=== PATIENT | male | born 1945 | race Caucasian/White ===

== ENCOUNTER 2017-07-10 22:55 | Observation (INO) | payer MEDICARE, OTHER ==
[2017-07-10] MEDS ORDERED: Morphine 2 MG/ML Syringe ONE (23:25)
[2017-07-10 23:27] LABS: CHLORIDE,CL 98 mEq/L (98-106); SODIUM,NA 133 mEq/L (136-145)
[2017-07-10] MEDS ORDERED: Morphine 2 MG/ML Syringe IVPUSH ONE (23:35)
[2017-07-10] MEDS ORDERED: Iopamidol 612 MG/ML 100 ML Bottle IVPUSH ONE (23:56)
--- NOTE | 2017-07-11 00:25 | EDM.PDOC ---
ED HPI GENERAL MEDICAL PROBLEM - General Chief Complaint: Chest Pain Stated Complaint: chest pain Time Seen by Provider: 07/10/17 22:55 Source of Information: Reports: Patient, Family History Limitations: Reports: No Limitations - History of Present Illness INITIAL COMMENTS - FREE TEXT/NARRATIVE: Marty is a 72 yo male who is brought into the ER via [facility] with complaints of severe chest pain. He states he was sitting in his recliner this evening around 1800hrs when the pain initially started. Admits to pain in his back between his shoulder blades and his chest. States the pain goes into his right shoulder and jaw as well. He initially thought it would subside but continued to worsen thru the evening. States it became almost intolerable and has never felt pain like this before. Describes the pain as sharp and burning. Notices when he takes in a deep breath the pain will intensify. He had his call the ambulance as the pain continued to worsen and wasn't getting any relief. EMS state he was given 4 baby aspirin, 2 nitro and fentanyl mist en route. Upon arrival Marty admits the pain has significantly improved. He states the pain is only worse upon inspiration or if he coughs. He has been feeling well up until tonight. States about a month ago he had influenza but hasn't had any symptoms since. Has a chronic cough and thinks it is allergy related. 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 Is currently on Eliquis for history of atrial fibrillation with prior ablation done. Onset: Today Onset Date: 07/11/17 Onset Time: 18:00 Location: Reports: Face, Chest, Back Quality: Reports: Sharp, Stabbing, Other (denies tearing sensation) Improves with: Reports: Medication Worsens with: Reports: Breathing Associated Symptoms: Reports: Chest Pain, Cough, Nausea/Vomiting, Shortness of Breath. 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, Nitroglycerin, Other Medication(s) (fentanyl mist) Chest Pain Score (Numeric/FACES): 7 - Related Data Allergies Allergy/AdvReac Type Severity Reaction Status Date / Time clarithromycin [From Biaxin] Allergy Rash Verified 07/10/17 23:08 doxycycline Allergy Rash Verified 07/10/17 23:08 Penicillins Allergy Rash Verified 07/10/17 23:08 Home Meds: Home Meds Omeprazole [Prilosec] 20 mg PO DAILY 05/01/13 [History] carBAMazepine [TEGretol Tab] 400 mg PO QID 05/01/13 [History] PARoxetine HCl [Paroxetine HCl] 30 mg PO DAILY 03/11/15 [History] Tamsulosin HCl 0.4 mg PO DAILY 03/11/15 [History] Apixaban [Eliquis] 5 mg PO BID 05/28/17 [History] Cyclobenzaprine [Flexeril] 10 mg PO TID 07/10/17 [History] Past Medical History HEENT History: Reports: Allergic Rhinitis Cardiovascular History: Reports: Afib, Arrhythmia, Pacemaker Respiratory History: Reports: None Gastrointestinal History: Reports: GERD Genitourinary History: Reports: BPH Musculoskeletal History: Reports: Arthritis Neurological History: Reports: Seizure Psychiatric History: Reports: Depression Hematologic History: Reports: Anticoagulation Therapy - Past Surgical History Head Surgeries/Procedures: Reports: None HEENT Surgical History: Reports: None Cardiovascular Surgical History: Reports: Cardiac Ablation, Pacer Respiratory Surgical History: Reports: None GI Surgical History: Reports: Colonoscopy Musculoskeletal Surgical History: Reports: Knee Replacement Social & Family History - Family History Cardiac: Reports: High Cholesterol, Hypertension - Tobacco Use Smoking Status *Q: Never Smoker Second Hand Smoke Exposure: No - Alcohol Use Days Per Week of Alcohol Use: 0 - Recreational Drug Use Recreational Drug Use: No ED ROS GENERAL - Review of Systems Review Of Systems: See Below Constitutional: Denies: Fever, Chills HEENT: Reports: Rhinitis Respiratory: Reports: Shortness of Breath, Cough. Denies: Wheezing, Sputum Cardiovascular: Reports: Chest Pain. Denies: Blood Pressure Problem, Dyspnea on Exertion, Edema, Palpitations GI/Abdominal: Reports: No Symptoms : Reports: No Symptoms Musculoskeletal: Reports: No Symptoms Skin: Reports: No Symptoms Neurological: Reports: Headache (after nitroglycerin) Psychiatric: Reports: Depression ED EXAM, GENERAL - Physical Exam Exam: See Below Exam Limited By: No Limitations General Appearance: Alert, WD/WN, Mild Distress Eye Exam: Bilateral Eye: Normal Inspection Ears: Normal External Exam, Hearing Grossly Normal Nose: Normal Inspection, Normal Mucosa, No Blood Throat/Mouth: Normal Inspection, Normal Lips, Normal Teeth (dentures), Normal Gums, Normal Oropharynx, Normal Voice, No Airway Compromise Head: Atraumatic, Normocephalic Neck: Normal Inspection, Supple Respiratory/Chest: No Respiratory Distress, Lungs Clear, Normal Breath Sounds, Other (chest pain upon palpation to anterior chest R>L) Cardiovascular: Normal Peripheral Pulses, Regular Rate, Rhythm, No Edema, Systolic Murmur Peripheral Pulses: 2+: Radial (L), Radial (R) GI/Abdominal: Normal Bowel Sounds, Soft, Other (obese) Extremities: Normal Inspection, No Pedal Edema, Normal Capillary Refill Neurological: Alert, Oriented, Normal Cognition Psychiatric: Normal Affect, Normal Mood Skin Exam: Warm, Dry, Intact, Normal Color, No Rash EKG INTERPRETATION EKG Date: 07/11/17 Time: 23:02 Rhythm: A-Fib Rate (Beats/Min): 71 QRS: LBBB Comparison: Change From Previous EKG (April 10 2017) Course - Vital Signs Last Recorded V/S: Last Vital Signs Temp 97.9 F 07/10/17 23:40 Pulse 70 07/10/17 23:40 Resp 18 07/10/17 23:40 BP 148/89 H 07/10/17 23:40 Pulse Ox 96 07/10/17 23:40 - Orders/Labs/Meds Orders: Active Orders 24 hr Category Date Time Status Chest 1V Frontal [CR] Stat Exams 07/10/17 23:07 Taken Chest w Cont [CT] Stat Exams 07/11/17 23:41 Ordered Labs: Laboratory Tests 07/10/17 07/10/17 07/10/17 Range/Units 23:06 23:06 23:06 WBC 12.2 H (5.0-10.0) 10^3/uL RBC 4.96 (4.50-6.00) 10^6/uL Hgb 15.9 (14.0-18.0) g/dL Hct 45.5 (40.0-54.0) % MCV 91.7 (82.0-94.0) fL MCH 32.1 H (27.0-32.0) pg MCHC 34.9 (33.0-38.0) g/dL RDW Coeff of [place] 12.7 (11.0-15.0) % Plt Count 236 (150-400) 10^3/uL Neut % (Auto) 82.5 (35-85) % Lymph % (Auto) 9.0 L (10-55) % [place] % (Auto) 7.1 (0-16) % Eos % (Auto) 1.2 (0-5) % Baso % (Auto) 0.2 (0-3) % Neut # (Auto) 10.06 H (1.80-7.00) 10^3/uL Lymph # (Auto) 1.09 (1.00-4.80) 10^3/uL [place] # (Auto) 0.86 H (0.00-0.80) 10^3/uL Eos # (Auto) 0.14 (0.00-0.45) 10^3/uL Baso # (Auto) 0.02 10^3/uL PT 10.4 (9.7-12.3) SEC INR 1.00 (0.92-1.18) APTT 31.0 H (24.5-30.9) SEC Sodium 133 L (136-145) mEq/L Potassium 4.1 (3.5-5.0) mEq/L Chloride 98 (98-106) mEq/L Carbon Dioxide 27 (21-32) mmol/L BUN 14 (7-18) mg/dL Creatinine 0.9 (0.7-1.3) mg/dL Est Cr Clr Drug Dosing TNP Estimated GFR (MDRD) > 60 (>=60) mL/min Glucose 146 H (75-99) mg/dL Calcium 9.1 (8.4-10.1) mg/dL Lactate Dehydrogenase 203 H (100-190) U/L Creatine Kinase 44 (35-232) U/L Troponin I 0.026 (0.00-0.06) ng/mL Meds: Medications Discontinued Medications Generic Name Dose Route Start Last Admin Trade Name Freq PRN Reason Stop Dose Admin Iopamidol 100 ml 07/10/17 23:56 07/11/17 00:19 Isovue-300 (61%) IVPUSH 07/10/17 23:57 100 ml ONETIME ONE Administration Morphine Sulfate Confirm 07/10/17 23:25 07/10/17 23:37 Morphine Administered 07/10/17 23:26 Not Given Dose 2 mg .ROUTE .STK-MED ONE Morphine Sulfate 2 mg 07/10/17 23:35 07/10/17 23:37 Morphine IVPUSH 07/10/17 23:36 2 mg ONETIME ONE Administration - Radiology Interpretation CT Results Date: 07/11/17 Departure - Departure Time of Disposition: 01:26 Disposition: Refer to Observation Condition: Undetermined Clinical Impression: Chest pain Qualifiers: Chest pain type: unspecified Qualified Code(s): R07.9 - Chest pain, unspecified Forms: ED Department Discharge - Problem List & Annotations (1) Chest pain SNOMED Code(s): 51059057 Code(s): R07.9 - CHEST PAIN, UNSPECIFIED Status: Acute Qualifiers: Chest pain type: unspecified Qualified Code(s): R07.9 - Chest pain, unspecified - Problem List Review Problem List Initiated/Reviewed/Updated: Yes - My Orders Last 24 Hours: My Active Orders 07/10/17 23:07 Chest 1V Frontal [CR] Stat 07/11/17 23:41 Chest w Cont [CT] Stat - Assessment/Plan Admission H&P: Please use this note as an admission H&P Last 24 Hours: My Active Orders 07/10/17 23:07 Chest 1V Frontal [CR] Stat 07/11/17 23:41 Chest w Cont [CT] Stat Plan: Laboratory work is stable. CT chest negative per radiologist at [facility] for acute findings. Consulted with Dr. Garrett who agreed with admission under observation for cardiac rule out. Will repeat cardiac enzymes at 0500. Marty verbalized understanding and currently is asymptomatic unless he takes deep inspiration.
[2017-07-11] MEDS ORDERED: Sodium Chloride 0.9% 10 ML Syringe FLUSH PRN (02:08)
[2017-07-11] MEDS ORDERED: Ondansetron 4 MG/2 ML SDV IV PRN (02:08)
[2017-07-11] MEDS: Morphine 2 MG/ML Syringe IVPUSH PRN ×3 (02:49→07:58)
[2017-07-11] MEDS ORDERED: Acetaminophen 500 MG Tab PO ONE (04:28)
[2017-07-11] MEDS ORDERED: Pantoprazole 40 MG Tab.CR PO SCH (07:00)
[2017-07-11] MEDS: methylPREDNISolone Sodium Succinate 125 MG/2 ML SDV IVPUSH SCH (09:12)
[2017-07-11] MEDS: **PTOM** Tamsulosin 0.4 MG Cap.ER PO SCH (09:15)
[2017-07-11] MEDS: PAROXETINE 20 MG PO SCH (09:16)
[2017-07-11] MEDS: CARBAMAZEPINE 200 MG PO SCH ×4 (09:16→19:36)
--- NOTE | 2017-07-11 09:21 | PCM.PN ---
- General Info Date of Service: 07/11/17 Admission Dx/Problem (Free Text): Chest Pain Functional Status: Denies: Pain Controlled, Tolerating Diet, Ambulating - Review of Systems General: Denies: Fever, Weakness, Fatigue HEENT: Reports: Rhinitis Pulmonary: Reports: Shortness of Breath, Pleuritic Chest Pain, Cough Cardiovascular: Reports: Chest Pain. Denies: Edema, Lightheadedness Gastrointestinal: Denies: Abdominal Pain, Nausea, Vomiting Genitourinary: Reports: No Symptoms Musculoskeletal: Reports: Back Pain, Joint Pain (right shoulder pain) Skin: Reports: No Symptoms Neurological: Reports: No Symptoms - Patient Data Vitals - Most Recent: Last Vital Signs Temp 98.1 F 07/11/17 08:00 Pulse 70 07/11/17 08:00 Resp 20 07/11/17 08:00 BP 181/105 H 07/11/17 08:00 Pulse Ox 96 07/11/17 08:00 Weight - Most Recent: 269 lb 12.8 oz Lab Results Last 24 Hours: Laboratory Results - last 24 hr 07/10/17 07/10/17 07/10/17 Range/Units 23:06 23:06 23:06 WBC 12.2 H (5.0-10.0) 10^3/uL RBC 4.96 (4.50-6.00) 10^6/uL Hgb 15.9 (14.0-18.0) g/dL Hct 45.5 (40.0-54.0) % MCV 91.7 (82.0-94.0) fL MCH 32.1 H (27.0-32.0) pg MCHC 34.9 (33.0-38.0) g/dL RDW Coeff of [place] 12.7 (11.0-15.0) % Plt Count 236 (150-400) 10^3/uL Neut % (Auto) 82.5 (35-85) % Lymph % (Auto) 9.0 L (10-55) % [place] % (Auto) 7.1 (0-16) % Eos % (Auto) 1.2 (0-5) % Baso % (Auto) 0.2 (0-3) % Neut # (Auto) 10.06 H (1.80-7.00) 10^3/uL Lymph # (Auto) 1.09 (1.00-4.80) 10^3/uL [place] # (Auto) 0.86 H (0.00-0.80) 10^3/uL Eos # (Auto) 0.14 (0.00-0.45) 10^3/uL Baso # (Auto) 0.02 10^3/uL PT 10.4 (9.7-12.3) SEC INR 1.00 (0.92-1.18) APTT 31.0 H (24.5-30.9) SEC Sodium 133 L (136-145) mEq/L Potassium 4.1 (3.5-5.0) mEq/L Chloride 98 (98-106) mEq/L Carbon Dioxide 27 (21-32) mmol/L BUN 14 (7-18) mg/dL Creatinine 0.9 (0.7-1.3) mg/dL Est Cr Clr Drug Dosing TNP Estimated GFR (MDRD) > 60 (>=60) mL/min Glucose 146 H (75-99) mg/dL Calcium 9.1 (8.4-10.1) mg/dL Lactate Dehydrogenase 203 H (100-190) U/L Creatine Kinase 44 (35-232) U/L Troponin I 0.026 (0.00-0.06) ng/mL C-Reactive Protein (0.2-0.8) mg/dL Amylase (25-115) U/L 07/11/17 Range/Units 04:55 WBC (5.0-10.0) 10^3/uL RBC (4.50-6.00) 10^6/uL Hgb (14.0-18.0) g/dL Hct (40.0-54.0) % MCV (82.0-94.0) fL MCH (27.0-32.0) pg MCHC (33.0-38.0) g/dL RDW Coeff of [place] (11.0-15.0) % Plt Count (150-400) 10^3/uL Neut % (Auto) (35-85) % Lymph % (Auto) (10-55) % [place] % (Auto) (0-16) % Eos % (Auto) (0-5) % Baso % (Auto) (0-3) % Neut # (Auto) (1.80-7.00) 10^3/uL Lymph # (Auto) (1.00-4.80) 10^3/uL [place] # (Auto) (0.00-0.80) 10^3/uL Eos # (Auto) (0.00-0.45) 10^3/uL Baso # (Auto) 10^3/uL PT (9.7-12.3) SEC INR (0.92-1.18) APTT (24.5-30.9) SEC Sodium (136-145) mEq/L Potassium (3.5-5.0) mEq/L Chloride (98-106) mEq/L Carbon Dioxide (21-32) mmol/L BUN (7-18) mg/dL Creatinine (0.7-1.3) mg/dL Est Cr Clr Drug Dosing Estimated GFR (MDRD) (>=60) mL/min Glucose (75-99) mg/dL Calcium (8.4-10.1) mg/dL Lactate Dehydrogenase (100-190) U/L Creatine Kinase 39 (35-232) U/L Troponin I 0.024 (0.00-0.06) ng/mL C-Reactive Protein 3.6 H (0.2-0.8) mg/dL Amylase 48 (25-115) U/L Med Orders - Current: Current Medications Apixaban (Eliquis) 5 mg PO BID [facility] Carbamazepine (Tegretol Tab) 400 mg PO QID [facility] Methylprednisolone Sodium Succinate (Solu-Medrol) 125 mg IVPUSH DAILY@0800 [facility] Last Admin: 07/11/17 09:12 Dose: 125 mg Morphine Sulfate (Morphine) 2 mg IVPUSH Q2H PRN PRN Reason: Pain (severe 7-10) Last Admin: 07/11/17 07:58 Dose: 2 mg Ondansetron HCl (Zofran) 4 mg IV Q4H PRN PRN Reason: Nausea/Vomiting Pantoprazole Sodium (Protonix) 40 mg PO ACBREAKFAST [facility] Paroxetine HCl (Paxil) 30 mg PO DAILY [facility] Sodium Chloride (Saline Flush) 10 ml FLUSH ASDIRECTED PRN PRN Reason: Keep Vein Open Tamsulosin HCl (Flomax) 0.4 mg PO DAILY [facility] Discontinued Medications Acetaminophen (Tylenol Extra Strength) 1,000 mg PO NOW ONE Stop: 07/11/17 04:29 Last Admin: 07/11/17 04:35 Dose: 1,000 mg Iopamidol (Isovue-300 (61%)) 100 ml IVPUSH ONETIME ONE Stop: 07/10/17 23:57 Last Admin: 07/11/17 00:19 Dose: 100 ml Morphine Sulfate (Morphine) Confirm Administered Dose 2 mg .ROUTE .STK-MED ONE Stop: 07/10/17 23:26 Last Admin: 07/10/17 23:37 Dose: Not Given Morphine Sulfate (Morphine) 2 mg IVPUSH ONETIME ONE Stop: 07/10/17 23:36 Last Admin: 07/10/17 23:37 Dose: 2 mg - Exam Quality Assessment: No: Supplemental Oxygen General: Alert, Oriented HEENT: Mucous Membr. Moist/[place] Neck: Supple Lungs: Clear to Auscultation, Normal Respiratory Effort, Other (tender to anterior chest wall) Cardiovascular: Regular Rate, Regular Rhythm GI/Abdominal Exam: Normal Bowel Sounds, Soft, Non-Tender Extremities: Normal Inspection, No Pedal Edema Skin: Warm, Dry Neurological: No New Focal Deficit - Problem List & Annotations (1) Chest pain SNOMED Code(s): 74108048 Code(s): R07.9 - CHEST PAIN, UNSPECIFIED Status: Acute Current Visit: No Qualifiers: Chest pain type: chest pain on breathing Qualified Code(s): R07.1 - Chest pain on breathing; R07.81 - Pleurodynia - Problem List Review Problem List Initiated/Reviewed/Updated: Yes - My Orders Last 24 Hours: My Active Orders 07/11/17 09:00 methylPREDNISolone Sod Succ [Solu-MEDROL] 125 mg IVPUSH DAILY@0800 07/11/17 Breakfast Regular Diet [DIET] - Assessment Assessment:: Atypical chest pain - Plan Plan:: Patient continues to have right shoulder pain and chest wall discomfort. States "hurts to take a breath". Has been coughing for a time now, especially at night. Denies any recent trauma. States was just sitting at his computer when the pain started in his back and shoulder and spread across his chest. Has been taking morphine IV frequently yet to control the discomfort. Cardiac enzymes and EKG have been normal. CRP 3.6. Chest CT was clear. Will give Solu Medrol this am for chest wall inflammation and ? pleurisy to see if patient gets better relief of his discomfort. Start regular diet. Continue to monitor telemetry. Possible discharge home tomorrow pending patient's pain level.
[2017-07-11] MEDS: PRILOSEC 20 MG PO SCH (09:34)
[2017-07-11] MEDS: Acetaminophen/HYDROcodone 325-5 MG Tab PO PRN ×4 (10:55→23:59)
[2017-07-11] MEDS ORDERED: Ketorolac 30 MG/ML SDV IVPUSH PRN (17:13)
[2017-07-12] MEDS: PRILOSEC 20 MG PO SCH (06:31)
[2017-07-12] MEDS: **PTOM** Tamsulosin 0.4 MG Cap.ER PO SCH (07:50)
[2017-07-12] MEDS: CARBAMAZEPINE 200 MG PO SCH (07:51)
[2017-07-12] MEDS: PAROXETINE 20 MG PO SCH (07:51)
[2017-07-12 08:52] VITALS: BP 183/102
[2017-07-12] MEDS: methylPREDNISolone Sodium Succinate 125 MG/2 ML SDV IVPUSH SCH (09:52)
--- NOTE | 2017-07-12 15:47 | PCM.DCSUM1 ---
Discharge Summary - Hospital Course Free Text/Narrative:: Patient presented to ER per EMS with complaints of severe chest pain. He was sitting in his recliner, just relaxing when the pain started between his shoulder blades and radiated to right shoulder and chest. Had been coughing a great deal over the days prior, states pain is more intense with deep breaths. Described the pain as sharp and burning, had never experienced pain like this in the past. Patient was given aspirin, nitro and Fentanyl enroute to the hospital. Full cardiac work up was done with negative enzymes, EKG. Admitted for cardiac rule out. CT scan of the chest was done and was negative. - Discharge Data Discharge Date: 07/12/17 Discharge Disposition: Home, Self-Care 01 Condition: Fair - Discharge Diagnosis/Problem(s) (1) Chest pain SNOMED Code(s): 35594779 ICD Code: R07.9 - CHEST PAIN, UNSPECIFIED Status: Acute Qualifiers: Chest pain type: chest pain on breathing Qualified Code(s): R07.1 - Chest pain on breathing; R07.81 - Pleurodynia - Patient Summary/Data Complications: none Hospital Course: Patient has had good resolution of his discomfort over the last 48 hours. Yesterday, continued to have a great deal of discomfort in his chest and shoulder despite normal cardiac enzymes. Was very tender to palpation to his anterior chest. Requiring morphine every 2 hours. Given a dose of Solu Medrol IV yesterday as well as Toradol was added and today, he is nearly pain free. States is able to ambulate now, take a deep breath with only a dull ache. Appetite is good. No nausea, shortness of breath, or dizziness. Shoulder pain is much improved. Patient did have increased confusion during the night, question if related to the steroids. Is oriented this am. Will discharge home on Celebrex 100 mg BID for 7 days. Follow up with Dr. Garrett next week. - Patient Instructions Diet: Usual Diet as Tolerated Activity: As Tolerated - Discharge Plan Prescriptions/Med Rec: Celecoxib [CeleBREX] 100 mg PO BID #14 cap Home Medications: Home Meds Omeprazole [Prilosec] 20 mg PO DAILY 05/01/13 [History] carBAMazepine [TEGretol Tab] 400 mg PO QID 05/01/13 [History] PARoxetine HCl [Paroxetine HCl] 30 mg PO DAILY 03/11/15 [History] Tamsulosin HCl 0.4 mg PO DAILY 03/11/15 [History] Apixaban [Eliquis] 5 mg PO BID 05/28/17 [History] Cyclobenzaprine [Flexeril] 10 mg PO TID 07/10/17 [History] Celecoxib [CeleBREX] 100 mg PO BID #14 cap 07/12/17 [Rx] Patient Handouts: Chest Wall Pain Forms: ED Department Discharge Referrals: Zheng Garrett MD [Primary Care Provider] - (Follow up in one week with Dr. Garrett) - Discharge Summary/Plan Comment DC Time >30 min.: No Discharge Summary/Plan Comment: Discharge home on Celebrex 100 mg BID Follow up with Dr. Garrett in one week - General Info Date of Service: 07/12/17 Admission Dx/Problem (Free Text: Chest Pain Functional Status: Reports: Pain Controlled, Tolerating Diet, Ambulating - Review of Systems General: Denies: Fever, Weakness, Fatigue HEENT: Reports: Rhinitis. Denies: Sore Throat Pulmonary: Denies: Shortness of Breath, Cough Cardiovascular: Denies: Chest Pain, Edema, Lightheadedness Gastrointestinal: Denies: Abdominal Pain, Nausea, Vomiting Genitourinary: Reports: No Symptoms Musculoskeletal: Reports: Joint Pain (shoulder pain much improved) Skin: Reports: No Symptoms Neurological: Reports: No Symptoms Psychiatric: Reports: No Symptoms - Patient Data Vitals - Most Recent: Last Vital Signs Temp 97.5 F 07/12/17 08:00 Pulse 76 07/12/17 08:00 Resp 20 07/12/17 08:00 BP 183/102 H 07/12/17 08:00 Pulse Ox 98 07/12/17 08:00 Weight - Most Recent: 269 lb 12.8 oz Med Orders - Current: Current Medications Discontinued Medications Acetaminophen (Tylenol Extra Strength) 1,000 mg PO NOW ONE Stop: 07/11/17 04:29 Last Admin: 07/11/17 04:35 Dose: 1,000 mg Hydrocodone Bitart/Acetaminophen ([place] 325-5 Mg) 1 - 2 tab PO Q6H PRN PRN Reason: Pain Last Admin: 07/11/17 23:59 Dose: 1 tab Apixaban (Eliquis) 5 mg PO BID [facility] Last Admin: 07/12/17 07:49 Dose: 5 mg Carbamazepine (Tegretol Tab) 400 mg PO QID [facility] Last Admin: 07/12/17 07:51 Dose: 400 mg Iopamidol (Isovue-300 (61%)) 100 ml IVPUSH ONETIME ONE Stop: 07/10/17 23:57 Last Admin: 07/11/17 00:19 Dose: 100 ml Ketorolac Tromethamine (Toradol) 15 mg IVPUSH Q6H PRN PRN Reason: Pain Stop: 07/16/17 17:13 Last Admin: 07/12/17 10:47 Dose: 15 mg Methylprednisolone Sodium Succinate (Solu-Medrol) 125 mg IVPUSH DAILY@0800 [facility] Last Admin: 07/12/17 09:52 Dose: Not Given Morphine Sulfate (Morphine) Confirm Administered Dose 2 mg .ROUTE .STK-MED ONE Stop: 07/10/17 23:26 Last Admin: 07/10/17 23:37 Dose: Not Given Morphine Sulfate (Morphine) 2 mg IVPUSH ONETIME ONE Stop: 07/10/17 23:36 Last Admin: 07/10/17 23:37 Dose: 2 mg Morphine Sulfate (Morphine) 2 mg IVPUSH Q2H PRN PRN Reason: Pain (severe 7-10) Last Admin: 07/11/17 07:58 Dose: 2 mg Ptom Prilosec 20 (Mg Tab) 1 each PO ACBREAKFAST [facility] Last Admin: 07/12/17 06:31 Dose: 1 each Ondansetron HCl (Zofran) 4 mg IV Q4H PRN PRN Reason: Nausea/Vomiting Pantoprazole Sodium (Protonix) 40 mg PO ACBREAKFAST [facility] Last Admin: 07/11/17 09:47 Dose: Not Given Paroxetine HCl (Paxil) 30 mg PO DAILY [facility] Last Admin: 07/12/17 07:51 Dose: 30 mg Sodium Chloride (Saline Flush) 10 ml FLUSH ASDIRECTED PRN PRN Reason: Keep Vein Open Tamsulosin HCl (Flomax) 0.4 mg PO DAILY [facility] Last Admin: 07/12/17 07:50 Dose: 0.4 mg - Exam General: Reports: Alert, Oriented HEENT: Reports: Mucous Membr. Moist/[place] Neck: Reports: Supple Lungs: Reports: Clear to Auscultation, Normal Respiratory Effort, Other (chest is nontender to palpation today) Cardiovascular: Reports: Regular Rate, Regular Rhythm GI/Abdominal Exam: Normal Bowel Sounds, Soft, Non-Tender Extremities: Normal Inspection, No Pedal Edema Skin: Reports: Warm, Dry Neurological: Reports: No New Focal Deficit
== END 2017-07-12 11:15 | disposition home or self-care (01) ==
LOC: CC.ED 22:55 → CC.MS 07-11 01:31 → UNDOADMOB 07-11 01:31 → CC.MS 07-11 01:40 → UNDOADMOB 07-11 01:40
PROVIDERS: ADMIT Physician Assistant Medical; ATTEND Family Medicine
DX: R07.1 Chest pain on breathing (principal); R07.81 Pleurodynia; J30.9 Allergic rhinitis, unspecified; I48.91 Unspecified atrial fibrillation; K21.9 Gastro-esophageal reflux disease without esophagitis; N40.0 Benign prostatic hyperplasia without lower urinary tract symptoms; M19.90 Unspecified osteoarthritis, unspecified site; F32.9 Major depressive disorder, single episode, unspecified; Z79.899 Other long term (current) drug therapy; Z79.01 Long term (current) use of anticoagulants; Z88.1 Allergy status to other antibiotic agents; Z88.0 Allergy status to penicillin; Z95.0 Presence of cardiac pacemaker
CPT/HCPCS: 36415; 71045; 71260; 80048; 82150; 82550; 83615; 84484; 85025; 85610; 85730; 86140; 93005; 96374; 96375; 96376; 99285; A9270; G0378; J1885; J2270; J2930; Q9967

== ENCOUNTER 2017-09-23 11:38 | Emergency (ER) | payer MEDICARE, OTHER ==
[2017-09-23 11:42] VITALS: BP 160/95
[2017-09-23] MEDS ORDERED: Ketorolac 60 MG/2 ML SDV IM ONE (11:58)
[2017-09-23] MEDS ORDERED: methylPREDNISolone Sodium Succinate 125 MG/2 ML SDV IM ONE (11:59)
--- NOTE | 2017-09-23 12:13 | EDM.PDOC ---
ED HPI GENERAL MEDICAL PROBLEM - General Chief Complaint: General Stated Complaint: rib/shoulder pain Time Seen by Provider: 09/23/17 12:00 Source of Information: Reports: Patient History Limitations: Reports: No Limitations - History of Present Illness INITIAL COMMENTS - FREE TEXT/NARRATIVE: Patient presents today with chest wall pain. States has been having discomfort just like he did when he was admitted in July. Did see Mandy Baca on the 31 of August for this, was started on hydrocodone and states it has not been helping at all. He notes the pain is worse with deep breathing and cough. Has not had any trauma. No cough. States the pain does radiate up to his right shoulder as well just like it did in the past. Onset: Gradual Duration: Week(s):, Waxing/Waning Location: Reports: Chest Quality: Reports: Sharp Severity: Severe Improves with: Reports: None Worsens with: Reports: Breathing Associated Symptoms: Denies: Cough, Fever/Chills, Loss of Appetite, Nausea/ Vomiting, Shortness of Breath, Weakness Treatments [employer]: Reports: Other Medication(s) (hydrocodone) Middle Thoracic Pain Score (Numeric/FACES): 9 - Related Data Allergies Allergy/AdvReac Type Severity Reaction Status Date / Time clarithromycin [From Biaxin] Allergy Rash Verified 09/23/17 11:42 doxycycline Allergy Rash Verified 09/23/17 11:42 Penicillins Allergy Rash Verified 09/23/17 11:42 Home Meds: Home Meds Omeprazole [Prilosec] 20 mg PO DAILY 05/01/13 [History] carBAMazepine [TEGretol Tab] 200 mg PO QID 05/01/13 [History] PARoxetine HCl [Paroxetine HCl] 30 mg PO DAILY 03/11/15 [History] Tamsulosin HCl 0.4 mg PO BEDTIME 03/11/15 [History] Apixaban [Eliquis] 5 mg PO BID 05/28/17 [History] Cyclobenzaprine [Flexeril] 10 mg PO TID 07/10/17 [History] Past Medical History HEENT History: Reports: Allergic Rhinitis Other HEENT History: GLASSES Cardiovascular History: Reports: Afib, Arrhythmia, Heart Murmur, Pacemaker, SOB on Exertion Respiratory History: Reports: None Gastrointestinal History: Reports: GERD Genitourinary History: Reports: BPH Other Genitourinary History: OVERACTIVE BLADDER Musculoskeletal History: Reports: Arthritis Neurological History: Reports: Seizure Psychiatric History: Reports: Depression Endocrine/Metabolic History: Reports: Obesity/BMI 30+ Hematologic History: Reports: Anticoagulation Therapy - Past Surgical History Head Surgeries/Procedures: Reports: None HEENT Surgical History: Reports: None Cardiovascular Surgical History: Reports: Cardiac Ablation, Pacer Respiratory Surgical History: Reports: None GI Surgical History: Reports: Colonoscopy Musculoskeletal Surgical History: Reports: Knee Replacement Social & Family History - Family History Family Medical History: Noncontributory Cardiac: Reports: High Cholesterol, Hypertension - Tobacco Use Smoking Status *Q: Never Smoker - Caffeine Use Caffeine Use: Reports: Coffee - Recreational Drug Use Recreational Drug Use: No ED ROS GENERAL - Review of Systems Review Of Systems: See Below Constitutional: Denies: Fever, Chills, Malaise, Weakness, Fatigue, Decreased Appetite HEENT: Reports: No Symptoms Respiratory: Reports: Pleuritic Chest Pain. Denies: Shortness of Breath, Wheezing, Cough Cardiovascular: Denies: Chest Pain, Edema, Lightheadedness Endocrine: Denies: Fatigue GI/Abdominal: Denies: Abdominal Pain, Nausea, Vomiting : Reports: No Symptoms Musculoskeletal: Reports: Shoulder Pain Skin: Reports: No Symptoms Neurological: Reports: No Symptoms ED EXAM, GENERAL - Physical Exam Exam: See Below Exam Limited By: No Limitations General Appearance: Alert, WD/WN, No Apparent Distress Ears: Normal External Exam, Normal TMs Nose: Normal Inspection, Normal Mucosa, No Blood Throat/Mouth: Normal Inspection, Normal Oropharynx Head: Normocephalic Neck: Normal Inspection, Supple, Non-Tender Respiratory/Chest: No Respiratory Distress, Lungs Clear, Normal Breath Sounds, Other (bilateral chest wall tender to palpation) Cardiovascular: Regular Rate, Rhythm GI/Abdominal: Normal Bowel Sounds, Soft, Non-Tender Course - Vital Signs Last Recorded V/S: Last Vital Signs Temp 97.4 F 09/23/17 11:40 Pulse 74 09/23/17 11:40 Resp 20 09/23/17 11:40 BP 160/95 H 09/23/17 11:40 Pulse Ox 95 09/23/17 11:40 - Orders/Labs/Meds Meds: Medications Discontinued Medications Generic Name Dose Route Start Last Admin Trade Name Freq PRN Reason Stop Dose Admin Ketorolac Tromethamine 60 mg 09/23/17 11:58 09/23/17 12:10 Toradol IM 09/23/17 11:59 60 mg ONETIME ONE Administration Methylprednisolone Sodium Succinate 125 mg 09/23/17 11:59 09/23/17 12:11 Solu-Medrol IM 09/23/17 12:00 125 mg ONETIME ONE Administration Departure - Departure Time of Disposition: 12:12 Disposition: Home, Self-Care 01 Condition: Fair Clinical Impression: Costochondral chest pain - Discharge Information Instructions: Costochondritis, [id number] Referrals: Zheng Garrett MD [Primary Care Provider] - Forms: ED Department Discharge Additional Instructions: 1. Rest 2. Encourage pain medications to allow coughing and deep breathing exercises 3. prednisone 40 mg daily with food 4. Heating pad to chest as needed 5. Follow up if any ongoing concerns.
== END 2017-09-23 12:20 | disposition home or self-care (01) ==
LOC: CC.ED 11:38
DX: R07.1 Chest pain on breathing (principal); E66.9 Obesity, unspecified; Z88.0 Allergy status to penicillin; Z88.1 Allergy status to other antibiotic agents; Z79.899 Other long term (current) drug therapy
CPT/HCPCS: 96372; 99282; J1885; J2930; 99284

== ENCOUNTER 2018-01-29 19:19 | Emergency (ER) | payer MEDICARE, OTHER ==
[2018-01-29 19:25] VITALS: BP 159/94
--- NOTE | 2018-01-29 19:50 | EDM.PDOC ---
ED HPI GENERAL MEDICAL PROBLEM - General Chief Complaint: General Stated Complaint: bilateral rib pain, SMITH s/p fall Time Seen by Provider: 01/29/18 19:28 Source of Information: Reports: Patient, Family History Limitations: Reports: No Limitations - History of Present Illness INITIAL COMMENTS - FREE TEXT/NARRATIVE: Marty is a 72 yo male who presents to the ER via private vehicle with complaints of a headache and rib pain after slipping backwards and hitting his head. He states he was trying to open his overhead garage door. He grabbed on to the rope and leaned back to use his weight to get the garage door started. He admits the rope broke and slipped backwards landing on his butt initially and then hitting the back of his head on the ground. He states it happened at 1730 this evening. He admits to being on Eliquis and is concerned since he hit his head. He denies any neck discomfort. No loss of consciousness. Bilateral Thoracic Pain Score (Numeric/FACES): 2 Headache Pain Score (Numeric/FACES): 2 - Related Data Allergies Allergy/AdvReac Type Severity Reaction Status Date / Time clarithromycin [From Biaxin] Allergy Rash Verified 01/29/18 19:25 doxycycline Allergy Rash Verified 01/29/18 19:25 Penicillins Allergy Rash Verified 01/29/18 19:25 Home Meds: Home Meds Omeprazole [Prilosec] 20 mg PO DAILY 05/01/13 [History] carBAMazepine [TEGretol Tab] 200 mg PO QID 05/01/13 [History] PARoxetine HCl [Paroxetine HCl] 30 mg PO DAILY 03/11/15 [History] Tamsulosin HCl 0.4 mg PO BEDTIME 03/11/15 [History] Apixaban [Eliquis] 5 mg PO BID 05/28/17 [History] Latanoprost 1 drop EYELF BEDTIME 01/29/18 [History] traMADol HCl [Tramadol HCl] 50 mg PO Q6H PRN 01/29/18 [History] Past Medical History HEENT History: Reports: Allergic Rhinitis Other HEENT History: GLASSES Cardiovascular History: Reports: Afib, Arrhythmia, Heart Murmur, Pacemaker, SOB on Exertion Respiratory History: Reports: None Gastrointestinal History: Reports: GERD Genitourinary History: Reports: BPH Other Genitourinary History: OVERACTIVE BLADDER Musculoskeletal History: Reports: Arthritis Neurological History: Reports: Seizure Psychiatric History: Reports: Depression Endocrine/Metabolic History: Reports: Obesity/BMI 30+ Hematologic History: Reports: Anticoagulation Therapy - Past Surgical History Head Surgeries/Procedures: Reports: None HEENT Surgical History: Reports: None Cardiovascular Surgical History: Reports: Cardiac Ablation, Pacer Respiratory Surgical History: Reports: None GI Surgical History: Reports: Colonoscopy Musculoskeletal Surgical History: Reports: Knee Replacement Social & Family History - Family History Family Medical History: Noncontributory Cardiac: Reports: High Cholesterol, Hypertension - Tobacco Use Smoking Status *Q: Never Smoker - Caffeine Use Caffeine Use: Reports: Coffee - Recreational Drug Use Recreational Drug Use: No ED ROS GENERAL - Review of Systems Review Of Systems: ROS reveals no pertinent complaints other than HPI. Musculoskeletal: Reports: Other (bilateral rib pain). Denies: Neck Pain, Back Pain Skin: Reports: Wound (back of scalp) Neurological: Reports: Headache. Denies: Confusion, Dizziness, Seizure, Syncope , Difficulty Walking ED EXAM, GENERAL - Physical Exam Exam: See Below Exam Limited By: No Limitations General Appearance: Alert, No Apparent Distress Eye Exam: Bilateral Eye: EOMI, Normal Inspection, PERRL Ears: Normal External Exam, Normal Canal, Hearing Grossly Normal, Normal TMs Nose: Normal Inspection, Normal Mucosa, No Blood Throat/Mouth: Normal Inspection, Normal Lips, Normal Gums, Normal Oropharynx, Normal Voice, No Airway Compromise Head: Other (superficial abrasion to posterior scalp. no active bleeding. Mild tenderness with palpation No bony deficits. ) Neck: Normal Inspection, Supple, Non-Tender, Full Range of Motion. No: Tender Midline Respiratory/Chest: No Respiratory Distress, Lungs Clear, Normal Breath Sounds, Other (chest wall tender anteriorly with palpation) Cardiovascular: Regular Rate, Rhythm, Systolic Murmur Back Exam: No: Paraspinal Tenderness, Vertebral Tenderness Extremities: Normal Inspection Neurological: Alert, Oriented, CN II-XII Intact, Normal Cognition, Normal Gait, Normal Reflexes, No Motor/Sensory Deficits Psychiatric: Normal Affect, Normal Mood Skin Exam: Warm, Dry, Intact, Normal Color, No Rash Course - Vital Signs Last Recorded V/S: Last Vital Signs Temp 99.5 F 01/29/18 19:22 Pulse 69 01/29/18 19:22 Resp 20 01/29/18 19:22 BP 159/94 H 01/29/18 19:22 Pulse Ox 97 01/29/18 19:22 - Orders/Labs/Meds Orders: Active Orders 24 hr Category Date Time Status Head w Cont [CT] Stat Exams 01/29/18 19:34 Taken Ribs 3V w Chest Bi [CR] Routine Exams 01/29/18 19:34 Taken Departure - Departure Time of Disposition: 20:47 Disposition: Home, Self-Care 01 Clinical Impression: Head injury without concussion or intracranial hemorrhage, Scalp abrasion, Anterior chest wall pain - Discharge Information Referrals: Zheng Garrett MD [Primary Care Provider] - Forms: ED Department Discharge Additional Instructions: 1) Rest tonight 2) May apply ice to scalp, 20 minutes at a time... every 1-2 hours as needed 3) May use home prescription of Tramadol for discomfort, may alternate with Tylenol as directed on bottle. 4) If any worsening of symptoms, questions or concerns... recommend returning for reevaluation. 5) Follow up with primary provider on in clinic - Problem List & Annotations (1) Scalp abrasion SNOMED Code(s): 450816598 Code(s): S00.01XA - ABRASION OF SCALP, INITIAL ENCOUNTER Status: Acute Current Visit: No (2) Head injury without concussion or intracranial hemorrhage SNOMED Code(s): 18021389 Code(s): S09.90XA - UNSPECIFIED INJURY OF HEAD, INITIAL ENCOUNTER Status: Acute Current Visit: No (3) Anterior chest wall pain SNOMED Code(s): 578362586 Code(s): R07.89 - OTHER CHEST PAIN Status: Acute Current Visit: No - My Orders Last 24 Hours: My Active Orders 01/29/18 19:34 Head w Cont [CT] Stat Ribs 3V w Chest Bi [CR] Routine - Assessment/Plan Last 24 Hours: My Active Orders 01/29/18 19:34 Head w Cont [CT] Stat Ribs 3V w Chest Bi [CR] Routine Plan: CT head was negative for any acute intracranial findings, pending radiology report. Chest x-ray is stable with no rib fractures identified. We were able to get Marty up and walking with a steady gait. Will discharge home. Patient verbalized understanding in regards to not having final CT report back yet. He verbalized understanding of the risks (discussed into detail ) and wants to go home. Recommend recheck with primary provider on . If any concerns sooner, advised to return to the ER. May use current Tramadol for discomfort and alternate with Tylenol.
== END 2018-01-29 20:55 | disposition home or self-care (01) ==
LOC: CC.ED 19:19
DX: S09.90XA Unspecified injury of head, initial encounter (principal); S00.01XA Abrasion of scalp, initial encounter; R07.89 Other chest pain; E66.9 Obesity, unspecified; Z79.899 Other long term (current) drug therapy; Z88.0 Allergy status to penicillin; Z88.1 Allergy status to other antibiotic agents; W01.198A Fall on same level from slipping, tripping and stumbling with subsequent striking against other object, initial encounter; R51 Headache
CPT/HCPCS: 70450; 70460; 71111; 99284; Q9967

== ENCOUNTER 2019-02-21 10:05 | Observation (INO) | payer MEDICARE, OTHER ==
[~2019-02-21 10:05] MED LIST: Lactated Ringers 1,000 ML IV SCH; cloNIDine 0.1 MG Tab ONE
[2019-02-21] MEDS ORDERED: Sodium Chloride 0.9% 10 ML Syringe FLUSH PRN (10:48)
[2019-02-21] MEDS ORDERED: Non-Formulary Medication 1 Each (Betamethasone Dipropionate [Diprosone 0.05% Crm] 1 APPLIC TOP PRN (10:51)
[2019-02-21] MEDS ORDERED: traMADol 50 MG Tab PO PRN (10:51)
[2019-02-21 11:34] LABS: CHLORIDE,CL 98 mEq/L (98-106); SODIUM,NA 135 mEq/L (136-145)
[2019-02-21] MEDS: carBAMazepine 200 MG Tab PO SCH ×3 (11:36→19:54)
[2019-02-21] MEDS: Losartan 25 MG Tab PO SCH ×2 (11:36→19:54)
[2019-02-21] MEDS: Apixaban 5 MG Tab PO SCH ×2 (12:53→19:55)
--- NOTE | 2019-02-21 12:58 | HP ---
CHIEF COMPLAINT: Hypertensive urgency. HISTORY: Marty was in today for a colonoscopy just for routine followup on polyps. He has been normotensive for quite some time. He was previously on lisinopril. We switched him over to losartan low dose of 25 mg daily due to cough, wondering if this may be SCOTT-induced. Ultimately, Marty stopped this because it was not helping the cough, so he has not been on anything for his blood pressure, albeit it was a low dose. Since he has been here, he has been anywhere from 200 to 240/100 to 140. He was having a little bit of dizziness. No headaches. We elected to cancel his colonoscopy. His blood pressures were not coming down and so we elected to put him in the hospital for observation for hypertensive urgency. PAST MEDICAL HISTORY: Includes: 1. History of chronic AFib. 2. Prior natty-tachy syndrome requiring pacemaker placement. 3. Chronic depression. 4. History of seizure disorder. 5. History of BPH. 6. He has documented aortic stenosis which is moderate. He is following with Dr. Pradhan and is scheduled for a Lexiscan next week. PAST SURGICAL HISTORY: Includes prior knee replacement, pacemaker placement, and ablation for his AFib. ALLERGIES: BIAXIN, DOXYCYCLINE, AND PENICILLIN. CURRENT MEDICATIONS: Eliquis 5 mg 1 b.i.d. for AFib, omeprazole 20 mg daily, paroxetine 40 mg daily, Flomax 0.4 mg daily, tramadol 50 mg 1 q.6 hours p.r.n. FAMILY HISTORY: History of heart disease in I believe a male before age 55. SOCIAL HISTORY: The patient is . His resides in the [facility] in the [facility]. He is a nonsmoker, nondrinker. PHYSICAL EXAMINATION: GENERAL: Marty is pleasant, alert, and cooperative. He shows no neuro deficits. HEENT: Benign. NECK: Neck veins are flat. LUNGS: Clear. CARDIAC: Cardiac tones are regular and paced. He has a crescendo systolic murmur consistent with his aortic stenosis. ABDOMEN: Benign and nontender. EXTREMITIES: No edema. Pulses are palpable. NEUROLOGIC: He has no focal deficits. ASSESSMENT: 1. HYPERTENSIVE URGENCY. 2. CHRONIC ATRIAL FIBRILLATION WITH PACER PLACEMENT FOR NATTY-TACHY SYNDROME. 3. AORTIC STENOSIS, MODERATE. 4. DEPRESSION. 5. HISTORY OF SEIZURE DISORDER. PLAN: We are going to admit Marty to the hospital. We gave him a dose of clonidine in the Same Day Care. We will get appropriate lab to look for any end- organ damage and do a CT of the head as he has had some dizziness. LYNDA/BRENDA /[id number]
[2019-02-21] MEDS ORDERED: Acetaminophen 325 MG Tab PO ONE (14:14)
[2019-02-21] MEDS ORDERED: Tamsulosin 0.4 MG Cap.ER PO SCH (20:00)
[2019-02-22 07:59] VITALS: BP 173/84; PULSE 78
[2019-02-22] MEDS ORDERED: Pantoprazole 40 MG Tab.CR PO SCH (08:00)
[2019-02-22] MEDS ORDERED: PARoxetine 20 MG Tab PO SCH (08:00)
[2019-02-22] MEDS ORDERED: Acetaminophen 325 MG Tab PO ONE (08:05)
[2019-02-22] MEDS: Losartan 25 MG Tab PO SCH (08:33)
[2019-02-22] MEDS: Apixaban 5 MG Tab PO SCH (08:34)
[2019-02-22] MEDS: carBAMazepine 200 MG Tab PO SCH (08:34)
--- NOTE | 2019-02-24 08:41 | DISCH ---
ADMISSION DIAGNOSIS: Hypertensive urgency. DISCHARGE DIAGNOSIS: HYPERTENSIVE URGENCY. HISTORY: The patient was actually in our facility for endoscopic procedure. His blood pressures were running very high. He had stopped his losartan and was to go back on lisinopril for blood pressure. He did not do that over the last week and came in with a blood pressure of over 200 systolic and 100 diastolic. This continued despite efforts to monitor him before his procedure. He was starting to have some complaints of headache and dizziness. We elected to put him in the hospital for observation. End-organ damage could not be found with CT scan of the head, EKG, troponin, urinalysis. He was given 0.1 mg of clonidine in our Same Day Care and admitted for observation. HOSPITAL COURSE: The patient did fine while here. Placed on telemetry, unremarkable during his stay. Started him back on losartan 25 b.i.d. and his blood pressures have been markedly improved. Only got 1 dose of his medication yesterday and increased through the night with his systolics going up to 160 to 170. He is back on a b.i.d. dose now. He is completely asymptomatic and we can titrate him as an outpatient. He does have a followup Lexiscan later this week and I have asked him to come in for routine blood pressures daily in [place], starting on Sunday. COMPLICATIONS: During his stay were none. CONSULTATIONS: None. DISPOSITION: Discharged home. LUIS MIGUEL /[id number]
== END 2019-02-22 10:23 | disposition home or self-care (01) ==
LOC: UNDOADMOB 10:05 → CC.MS 10:05
PROVIDERS: ADMIT Family Medicine; ATTEND Family Medicine
DX: I16.0 Hypertensive urgency (principal); I10 Essential (primary) hypertension; I48.20 Chronic atrial fibrillation, unspecified; I49.5 Sick sinus syndrome; I35.0 Nonrheumatic aortic (valve) stenosis; F32.9 Major depressive disorder, single episode, unspecified; G40.909 Epilepsy, unspecified, not intractable, without status epilepticus; N40.0 Benign prostatic hyperplasia without lower urinary tract symptoms; Z88.0 Allergy status to penicillin; Z88.1 Allergy status to other antibiotic agents; Z95.0 Presence of cardiac pacemaker; Z79.01 Long term (current) use of anticoagulants; Z79.899 Other long term (current) drug therapy; Z12.11 Encounter for screening for malignant neoplasm of colon; I48.91 Unspecified atrial fibrillation; E11.9 Type 2 diabetes mellitus without complications; E03.9 Hypothyroidism, unspecified; F41.8 Other specified anxiety disorders; N32.81 Overactive bladder; Z53.09 Procedure and treatment not carried out because of other contraindication; Z86.010 Personal history of colon polyps
CPT/HCPCS: 36415; 70450; 80048; 81001; 84484; 85025; 93005; 93010; 99217; 99220; A9270; G0378; J7120

== ENCOUNTER → 2019-07-25 | Day surgery (SDC) | payer MEDICARE, OTHER ==
[~2019-07-25] MED LIST changes: +Propofol 200 MG/20 ML SDV IV ONE; -cloNIDine 0.1 MG Tab ONE; +fentaNYL 100 MCG/2 ML SDV IV ONE
[2019-07-25] MEDS: Lactated Ringers 1,000 ML IV SCH (07:38)
[2019-07-25 07:55] VITALS: PULSE 70
--- NOTE | 2019-07-25 11:47 | OR ---
DATE OF OPERATION: PREOPERATIVE DIAGNOSIS: 1. HISTORY OF POLYPS. 2. ALTERED BOWEL HABITS. POSTOPERATIVE DIAGNOSIS: 1. HISTORY OF POLYPS. 2. ALTERED BOWEL HABITS. SURGEON: Zheng Garrett MD PROCEDURE: DIAGNOSTIC COLONOSCOPY WITH SNARE POLYPECTOMY X2. ANESTHESIA: MAC. COMPLICATIONS: None. SPECIMEN: Small tubular adenomas x2, less than 5 mm, left colon. FINDINGS: 1. Full-length colonoscopy. 2. [id number] fitzpatrick-diverticulosis. 3. Tubular adenomas x2, rectosigmoid junction and proximal rectal vault. RECOMMENDATIONS: Followup colonoscopy in 5 years. INDICATIONS: The patient has a history of prior polyps being removed. He is overdue for a colonoscopy, and he has been having altered bowel habits in the form of occasional diarrhea. We elected to proceed with diagnostic scope. DESCRIPTION OF PROCEDURE: The patient was prepped and draped, placed in the left lateral decubitus position. A lubricated Olympus colonoscope was inserted, and with ease, ultimately advanced to the cecum, able to directly visualize the ileocecal valve and appendiceal orifice. The bowel prep was excellent. Upon withdrawal of the scope, cecum, ascending, transverse colon were completely unremarkable. The patient noted to have a few scattered diverticula all the way over to the right colon. He has a significant amount of diverticulosis throughout the left colon, most prominent as expected in the sigmoid region without any inflammatory changes. Severity was [id number]. In the rectosigmoid junction, the patient had a small tubular adenoma, about 5 mm, removed with a snare and suctioned into polyp trap #1. Second adenoma present in the proximal rectal vault, also removed with a snare. We had to remove 1 smaller residual piece with a forceps without any problem. Otherwise, the rectal vault was benign. Retroflexion showed no perianal lesions. Air was suctioned. Scope removed without complication. LYNDA/BRENDA /[id number]
[2019-07-25 12:13] VITALS: BP 108/72
== END ==
LOC: CC.SDS 07:21
PROVIDERS: ATTEND Family Medicine
DX: D12.7 Benign neoplasm of rectosigmoid junction (principal); D12.8 Benign neoplasm of rectum; K57.30 Diverticulosis of large intestine without perforation or abscess without bleeding; E11.9 Type 2 diabetes mellitus without complications; I48.91 Unspecified atrial fibrillation; G40.909 Epilepsy, unspecified, not intractable, without status epilepticus; I10 Essential (primary) hypertension; Z88.1 Allergy status to other antibiotic agents; Z88.8 Allergy status to other drugs, medicaments and biological substances; Z88.0 Allergy status to penicillin; Z79.899 Other long term (current) drug therapy; Z86.010 Personal history of colon polyps; Z86.79 Personal history of other diseases of the circulatory system; Z79.01 Long term (current) use of anticoagulants
CPT/HCPCS: 00812; 45385; 88305; J2704; J3010; J7120

== ENCOUNTER 2019-09-26 20:19 | Emergency (ER) | payer MEDICARE, OTHER ==
[2019-09-26 20:49] VITALS: BP 141/77; PULSE 71
--- NOTE | 2019-09-26 20:54 | EDM.PDOC ---
ED HPI GENERAL MEDICAL PROBLEM - General Chief Complaint: Behavioral/Psych Stated Complaint: I'm sad and lonely Time Seen by Provider: 09/26/19 20:30 Source of Information: Reports: Patient, EMS History Limitations: Reports: No Limitations - History of Present Illness INITIAL COMMENTS - FREE TEXT/NARRATIVE: Patient to the emergency department by EMS where he was at home very depressed and tearful, advised that he cannot get over the of his a few months ago. He advised that all he does is sit at home and think about her. He also advises he has had suicidal ideations to kill himself with a gun. He did advise that the police took his gun. The patient denies any medical complaints. 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) (none) - Related Data Allergies Allergy/AdvReac Type Severity Reaction Status Date / Time clarithromycin [From Biaxin] Allergy Rash Verified 09/26/19 20:23 doxycycline Allergy Rash Verified 09/26/19 20:23 Penicillins Allergy Rash Verified 09/26/19 20:23 Home Meds: Home Meds Omeprazole [Prilosec] 20 mg PO DAILY 05/01/13 [History] carBAMazepine [TEGretol Tab] 200 mg PO QID 05/01/13 [History] PARoxetine HCl [Paroxetine HCl] 40 mg PO DAILY 03/11/15 [History] Tamsulosin HCl 0.4 mg PO BEDTIME 03/11/15 [History] Apixaban [Eliquis] 5 mg PO BID 05/28/17 [History] Betamethasone Dipropionate [Diprosone 0.05% Crm] 1 applic TOP TID PRN 02/18/19 [History] traMADol HCl [Tramadol HCl] 50 mg PO TID PRN 02/27/19 [History] Losartan Potassium 25 mg PO BID 07/07/19 [History] hydrOXYzine pamoate [Hydroxyzine Pamoate] 25 mg PO Q6H PRN 07/07/19 [History] Past Medical History HEENT History: Reports: Allergic Rhinitis Other HEENT History: GLASSES Cardiovascular History: Reports: Afib, Arrhythmia, Heart Murmur, Pacemaker, SOB on Exertion Respiratory History: Reports: None Gastrointestinal History: Reports: GERD Genitourinary History: Reports: BPH Other Genitourinary History: OVERACTIVE BLADDER Musculoskeletal History: Reports: Arthritis Neurological History: Reports: Seizure Psychiatric History: Reports: Depression Endocrine/Metabolic History: Reports: Obesity/BMI 30+ Hematologic History: Reports: Anticoagulation Therapy - Past Surgical History Head Surgeries/Procedures: Reports: None HEENT Surgical History: Reports: None Cardiovascular Surgical History: Reports: Cardiac Ablation, Pacer Respiratory Surgical History: Reports: None GI Surgical History: Reports: Colonoscopy Musculoskeletal Surgical History: Reports: Knee Replacement Social & Family History - Family History Family Medical History: Noncontributory Cardiac: Reports: High Cholesterol, Hypertension - Tobacco Use Smoking Status *Q: Never Smoker Second Hand Smoke Exposure: No - Caffeine Use Caffeine Use: Reports: None - Recreational Drug Use Recreational Drug Use: No ED ROS GENERAL - Review of Systems Review Of Systems: See Below Constitutional: Reports: No Symptoms. Denies: Fever, Chills HEENT: Reports: No Symptoms Respiratory: Reports: No Symptoms. Denies: Shortness of Breath Cardiovascular: Reports: No Symptoms. Denies: Chest Pain GI/Abdominal: Reports: No Symptoms. Denies: Abdominal Pain, Nausea, Vomiting : Reports: No Symptoms Musculoskeletal: Reports: No Symptoms Skin: Reports: No Symptoms Neurological: Reports: No Symptoms. Denies: Confusion, Dizziness, Headache Psychiatric: Reports: Depression, Suicidal Ideation. Denies: Homicidal Ideation ED EXAM, GENERAL - Physical Exam Exam: See Below Exam Limited By: No Limitations General Appearance: Alert, WD/WN, Obese, Other (tearful) Ears: Normal External Exam Nose: Normal Inspection Throat/Mouth: Normal Inspection, Normal Lips, Normal Voice, No Airway Compromise Head: Atraumatic, Normocephalic Neck: Normal Inspection, Supple, Non-Tender, Full Range of Motion Respiratory/Chest: No Respiratory Distress, Lungs Clear, Normal Breath Sounds, Chest Non-Tender Cardiovascular: Normal Peripheral Pulses, Regular Rate, Rhythm GI/Abdominal: Soft, Non-Tender Back Exam: Normal Inspection, Full Range of Motion Extremities: Normal Inspection, Normal Range of Motion, Non-Tender, Normal Capillary Refill Neurological: Alert, Oriented, Normal Cognition, Normal Gait, No Motor/Sensory Deficits Psychiatric: Depressed Mood, Flat Affect, Tearful Skin Exam: Warm, Dry, Intact, Normal Color Course - Vital Signs Text/Narrative:: 2051 patient was evaluated in the emergency department lab is in right now collecting samples, I did call and speak to Estela at [facility] she will have the screener call me back [id number] Viktoria the screener has called back and will talk to the patient to determine the best options for him. [id number] Viktoria the screener called back after speaking to the patient and advised that she feels that he is low risk and is safe to go home, she advised that she spoke to him in great detail and she also advised him of some phone numbers that he can call for help including a potential suicide hotline if he would start to have thoughts of suicide again. Currently the patient is alert and happy and advised that he feels better after talking to Viktoria. The patient is currently denying any thoughts of suicide at this point. Viktoria advised that she would suggest him follow-up with the PCP for possible antidepressants and she also advised that she would call him tomorrow to check on him. Last Recorded V/S: Last Vital Signs Temp 36.2 C 09/26/19 20:34 Pulse 71 09/26/19 20:34 Resp 18 09/26/19 20:34 BP 141/77 H 09/26/19 20:34 Pulse Ox 97 09/26/19 20:34 - Orders/Labs/Meds Labs: Laboratory Tests 09/26/19 09/26/19 09/26/19 Range/Units 21:00 21:00 21:00 WBC 6.7 (5.0-10.0) 10^3/uL RBC 4.11 L (4.50-6.00) 10^6/uL Hgb 13.0 L (14.0-18.0) g/dL Hct 37.5 L (40.0-54.0) % MCV 91.2 (82.0-94.0) fL MCH 31.6 (27.0-32.0) pg MCHC 34.7 (33.0-38.0) g/dL RDW Coeff of Helen 13.1 (11.0-15.0) % Plt Count 261 (150-400) 10^3/uL Neut % (Auto) 73.0 (35-85) % Lymph % (Auto) 16.3 (10-55) % [place] % (Auto) 7.9 (0-16) % Eos % (Auto) 2.5 (0-5) % Baso % (Auto) 0.3 (0-3) % Neut # (Auto) 4.92 (1.80-7.00) 10^3/uL Lymph # (Auto) 1.10 (1.00-4.80) 10^3/uL [place] # (Auto) 0.53 (0.00-0.80) 10^3/uL Eos # (Auto) 0.17 (0.00-0.45) 10^3/uL Baso # (Auto) 0.02 10^3/uL Sodium 127 L (136-145) mEq/L Potassium 4.2 (3.5-5.0) mEq/L Chloride 93 L (98-106) mEq/L Carbon Dioxide 26 (21-32) mmol/L BUN 13 (7-18) mg/dL Creatinine 0.9 (0.7-1.3) mg/dL Est Cr Clr Drug Dosing 84.99 mL/min Estimated GFR (MDRD) > 60 (>=60) mL/min Glucose 194 H D (75-99) mg/dL Calcium 9.1 (8.4-10.1) mg/dL Total Bilirubin 0.5 (0.0-1.0) mg/dL AST 30 (15-37) U/L ALT 32 (12-78) U/L Alkaline Phosphatase 145 H (46-116) U/L Total Protein 8.1 (6.4-8.2) g/dL Albumin 3.7 (3.4-5.0) g/dL TSH, Ultra Sensitive 1.89 (0.36-5.60) uIU/mL Urine Color Yellow (YELLOW) Urine Appearance Clear (CLEAR) Urine pH 5.5 (4.5-8.0) Ur Specific [place] 1.025 H (1.003-1.020) Urine Protein 30 H (NEGATIVE) mg/dL Urine Glucose (UA) 100 H (NEGATIVE) mg/dL Urine Ketones Negative (NEGATIVE) mg/dL Urine Occult Blood Negative (NEGATIVE) Urine Nitrite Negative (NEGATIVE) Urine Bilirubin Negative (NEGATIVE) Urine Urobilinogen 0.2 (0.2-1.0) EU/dL Ur Leukocyte Esterase Negative (NEGATIVE) Urine RBC Not seen (0-5) /HPF Urine WBC Not seen (0-5) /HPF Urine Opiates Screen (NEGATIVE) Ur Oxycodone Screen (NEGATIVE) Urine Methadone Screen (NEGATIVE) Ur Barbiturates Screen (NEGATIVE) U Tricyclic Antidepress (NEGATIVE) Ur Phencyclidine Scrn (NEGATIVE) Ur Amphetamine Screen (NEGATIVE) U Methamphetamines Scrn (NEGATIVE) Urine MDMA Screen (NEGATIVE) U Benzodiazepines Scrn (NEGATIVE) Urine Cocaine Screen (NEGATIVE) U Marijuana (THC) Screen (NEGATIVE) Ethyl Alcohol < 3 (0-3) mg/dL 09/26/19 Range/Units 21:00 WBC (5.0-10.0) 10^3/uL RBC (4.50-6.00) 10^6/uL Hgb (14.0-18.0) g/dL Hct (40.0-54.0) % MCV (82.0-94.0) fL MCH (27.0-32.0) pg MCHC (33.0-38.0) g/dL RDW Coeff of [place] (11.0-15.0) % Plt Count (150-400) 10^3/uL Neut % (Auto) (35-85) % Lymph % (Auto) (10-55) % [place] % (Auto) (0-16) % Eos % (Auto) (0-5) % Baso % (Auto) (0-3) % Neut # (Auto) (1.80-7.00) 10^3/uL Lymph # (Auto) (1.00-4.80) 10^3/uL [place] # (Auto) (0.00-0.80) 10^3/uL Eos # (Auto) (0.00-0.45) 10^3/uL Baso # (Auto) 10^3/uL Sodium (136-145) mEq/L Potassium (3.5-5.0) mEq/L Chloride (98-106) mEq/L Carbon Dioxide (21-32) mmol/L BUN (7-18) mg/dL Creatinine (0.7-1.3) mg/dL Est Cr Clr Drug Dosing mL/min Estimated GFR (MDRD) (>=60) mL/min Glucose (75-99) mg/dL Calcium (8.4-10.1) mg/dL Total Bilirubin (0.0-1.0) mg/dL AST (15-37) U/L ALT (12-78) U/L Alkaline Phosphatase (46-116) U/L Total Protein (6.4-8.2) g/dL Albumin (3.4-5.0) g/dL TSH, Ultra Sensitive (0.36-5.60) uIU/mL Urine Color (YELLOW) Urine Appearance (CLEAR) Urine pH (4.5-8.0) Ur Specific [place] (1.003-1.020) Urine Protein (NEGATIVE) mg/dL Urine Glucose (UA) (NEGATIVE) mg/dL Urine Ketones (NEGATIVE) mg/dL Urine Occult Blood (NEGATIVE) Urine Nitrite (NEGATIVE) Urine Bilirubin (NEGATIVE) Urine Urobilinogen (0.2-1.0) EU/dL Ur Leukocyte Esterase (NEGATIVE) Urine RBC (0-5) /HPF Urine WBC (0-5) /HPF Urine Opiates Screen Negative (NEGATIVE) Ur Oxycodone Screen Negative (NEGATIVE) Urine Methadone Screen Negative (NEGATIVE) Ur Barbiturates Screen Negative (NEGATIVE) U Tricyclic Antidepress Negative (NEGATIVE) Ur Phencyclidine Scrn Negative (NEGATIVE) Ur Amphetamine Screen Negative (NEGATIVE) U Methamphetamines Scrn Negative (NEGATIVE) Urine MDMA Screen Negative (NEGATIVE) U Benzodiazepines Scrn Positive H (NEGATIVE) Urine Cocaine Screen Negative (NEGATIVE) U Marijuana (THC) Screen Negative (NEGATIVE) Ethyl Alcohol (0-3) mg/dL Departure - Departure Time of Disposition: 21:48 Disposition: Home, Self-Care 01 Condition: Good Clinical Impression: Grief reaction, Depression - Discharge Information *PRESCRIPTION DRUG MONITORING PROGRAM REVIEWED*: Not Applicable *COPY OF PRESCRIPTION DRUG MONITORING REPORT IN PATIENT ROBIN: Not Applicable Instructions: Suicidal Feelings: How to Help Yourself, Complicated Grief, Living With Depression Forms: ED Department Discharge Additional Instructions: Follow-up with Sarah ordoñez mental health nurse practitioner here in [facility] this week, call Sunday for an appointment time Viktoria the mental health screener will call you and check on you tomorrow If you start to develop thoughts of suicide again call , you can also dial "[id number]" for mental health resources Additionally, call and ask for the mental health screener as needed If you start feeling hopeless again or thoughts of suicide or any other problems call 911 and return to the emergency department Sepsis Event Note (ED) - Evaluation Sepsis Screening Result: No Definite Risk - Focused Exam Vital Signs: Vital Signs Temp Pulse Resp BP Pulse Ox 09/26/19 20:34 36.2 C 71 18 141/77 H 97 - Problem List & Annotations (1) Depression SNOMED Code(s): 61476119 Code(s): F32.9 - MAJOR DEPRESSIVE DISORDER, SINGLE EPISODE, UNSPECIFIED Status: Acute Priority: Medium Current Visit: Yes Qualifiers: Depression Type: unspecified Qualified Code(s): F32.9 - Major depressive disorder, single episode, unspecified (2) Grief reaction SNOMED Code(s): 564891347 Code(s): F43.21 - ADJUSTMENT DISORDER WITH DEPRESSED MOOD Status: Acute Priority: Medium Current Visit: Yes - Problem List Review Problem List Initiated/Reviewed/Updated: Yes - Assessment/Plan Plan: As above
[2019-09-26 21:28] LABS: CHLORIDE,CL 93 mEq/L (98-106); SODIUM,NA 127 mEq/L (136-145)
== END 2019-09-26 22:05 | disposition home or self-care (01) ==
LOC: CC.ED 20:19
DX: F43.21 Adjustment disorder with depressed mood (principal); K21.9 Gastro-esophageal reflux disease without esophagitis; I48.91 Unspecified atrial fibrillation; R56.9 Unspecified convulsions; F32.9 Major depressive disorder, single episode, unspecified; E66.9 Obesity, unspecified; Z68.34 Body mass index [BMI] 34.0-34.9, adult; Z79.01 Long term (current) use of anticoagulants; Z79.899 Other long term (current) drug therapy; Z88.1 Allergy status to other antibiotic agents; Z88.0 Allergy status to penicillin
CPT/HCPCS: 36415; 80053; 80305-QW; 80307; 81001; 84443; 85025; 99284

== ENCOUNTER 2019-10-23 16:25 | Emergency (ER) | payer MEDICARE, OTHER ==
[2019-10-23] MEDS ORDERED: Naloxone 2 MG/2 ML Syringe IVPUSH ONE ×2 (16:56→17:21)
[2019-10-23 17:09] LABS: CHLORIDE,CL 99 mEq/L (98-106); SODIUM,NA 134 mEq/L (136-145)
--- NOTE | 2019-10-23 17:12 | EDM.PDOC ---
ED HPI GENERAL MEDICAL PROBLEM - General Chief Complaint: General Stated Complaint: "unknown amount of pills taken" Time Seen by Provider: 10/23/19 16:45 Source of Information: Reports: Patient, RN History Limitations: Reports: Altered Mental Status - History of Present Illness INITIAL COMMENTS - FREE TEXT/NARRATIVE: pt states that he took his ativan starting about 2-3 pm today. The bottle was filled with #30 (0.5) on 10/16/19 and is empty. He is unsure if he had taken any out of the bottle before that. He has a bottle of hydrocodone that was filled in 2017 and #20 was in the bottle at that time and there are #10 left. He isn't sure if he took any or was just thinking about it and then later stated that he took 3 of the big ones. He is alert and oriented and tells me he just wants to go see Cintia who is his that about 6 months ago. He has been very lonely without her since she . Last week would have been there 53 anniversary. Has been seeing DARREN Andrade. He continues to repeat that he is just lonesome. He continues to tell me that he just wants to as he can't take the lonliness. He had called his son earlier in the day to tell him "there is nothing to worry about anymore". Neighbor had brought over cookies this afternoon and he told her that he had taken them. EKG is done and is consistent with previous EKG. Onset: Today - Related Data Allergies Allergy/AdvReac Type Severity Reaction Status Date / Time clarithromycin [From Biaxin] Allergy Rash Verified 10/23/19 17:31 doxycycline Allergy Rash Verified 10/23/19 17:31 Penicillins Allergy Rash Verified 10/23/19 17:31 Home Meds: Home Meds Omeprazole [Prilosec] 20 mg PO DAILY 05/01/13 [History] carBAMazepine [TEGretol Tab] 100 mg PO QID 05/01/13 [History] Tamsulosin HCl 0.4 mg PO BEDTIME 03/11/15 [History] Apixaban [Eliquis] 5 mg PO BID 05/28/17 [History] Losartan Potassium 25 mg PO BID 07/07/19 [History] Clopidogrel [Plavix] 75 mg PO DAILY 10/23/19 [History] Sertraline [Zoloft] 50 mg PO DAILY 10/23/19 [History] hydrOXYzine pamoate [Hydroxyzine Pamoate] 50 mg PO ASDIRECTED PRN 10/23/19 [History] metFORMIN [Glucophage] 500 mg PO BIDMEALS 10/23/19 [History] Past Medical History HEENT History: Reports: Allergic Rhinitis Other HEENT History: GLASSES Cardiovascular History: Reports: Afib, Arrhythmia, Heart Murmur, Pacemaker, SOB on Exertion Respiratory History: Reports: None Gastrointestinal History: Reports: GERD Genitourinary History: Reports: BPH Other Genitourinary History: OVERACTIVE BLADDER Musculoskeletal History: Reports: Arthritis Neurological History: Reports: Seizure Psychiatric History: Reports: Depression Endocrine/Metabolic History: Reports: Obesity/BMI 30+ Hematologic History: Reports: Anticoagulation Therapy - Past Surgical History Head Surgeries/Procedures: Reports: None HEENT Surgical History: Reports: None Cardiovascular Surgical History: Reports: Cardiac Ablation, Pacer Respiratory Surgical History: Reports: None GI Surgical History: Reports: Colonoscopy Musculoskeletal Surgical History: Reports: Knee Replacement Social & Family History - Family History Family Medical History: Noncontributory Cardiac: Reports: High Cholesterol, Hypertension - Caffeine Use Caffeine Use: Reports: None - Living Situation & Occupation Living situation: Reports: , Alone Occupation: Retired ED ROS GENERAL - Review of Systems Review Of Systems: See Below Constitutional: Denies: Fever, Chills HEENT: Reports: No Symptoms Respiratory: Reports: No Symptoms Cardiovascular: Reports: No Symptoms GI/Abdominal: Reports: No Symptoms : Reports: No Symptoms Musculoskeletal: Reports: No Symptoms Skin: Reports: No Symptoms Neurological: Reports: No Symptoms Psychiatric: Reports: Depression, Suicidal Ideation ED EXAM, GENERAL - Physical Exam Exam: See Below Exam Limited By: No Limitations General Appearance: Alert, WD/WN, No Apparent Distress Eye Exam: Bilateral Eye: PERRL (4mm bilaterally and equal.) Ears: Normal External Exam, Normal Canal Nose: Normal Inspection Throat/Mouth: Normal Inspection, Normal Oropharynx Head: Atraumatic, Normocephalic Neck: Normal Inspection, Supple Respiratory/Chest: No Respiratory Distress, Lungs Clear, Normal Breath Sounds Cardiovascular: Normal Peripheral Pulses, Regular Rate, Rhythm, No Edema GI/Abdominal: Normal Bowel Sounds, Soft, Non-Tender Extremities: Normal Inspection, No Pedal Edema, Normal Capillary Refill Neurological: Alert, Oriented, CN II-XII Intact, Normal Cognition. No: Disoriented, Slow to Respond Skin Exam: Warm, Dry, Intact Course - Vital Signs Last Recorded V/S: Last Vital Signs Temp 97.7 F 10/23/19 22:15 Pulse 70 10/23/19 22:15 Resp 16 10/23/19 22:15 BP 131/87 10/23/19 22:15 Pulse Ox 96 10/23/19 22:15 - Orders/Labs/Meds Orders: Active Orders 24 hr Category Date Time Status ACETAMINOPHEN [REF] Stat Lab 10/23/19 16:53 Received SALICYLATE [REF] Stat Lab 10/23/19 16:53 Received Labs: Laboratory Tests 10/23/19 10/23/19 10/23/19 Range/Units 16:45 16:53 16:53 WBC 6.6 (5.0-10.0) 10^3/uL RBC 4.07 L (4.50-6.00) 10^6/uL Hgb 12.9 L (14.0-18.0) g/dL Hct 37.8 L (40.0-54.0) % MCV 92.9 (82.0-94.0) fL MCH 31.7 (27.0-32.0) pg MCHC 34.1 (33.0-38.0) g/dL RDW Coeff of Helen 12.8 (11.0-15.0) % Plt Count 248 (150-400) 10^3/uL Neut % (Auto) 74.6 (35-85) % Lymph % (Auto) 13.6 (10-55) % Rowan % (Auto) 9.4 (0-16) % Eos % (Auto) 2.1 (0-5) % Baso % (Auto) 0.3 (0-3) % Neut # (Auto) 4.93 (1.80-7.00) 10^3/uL Lymph # (Auto) 0.90 L (1.00-4.80) 10^3/uL Rowan # (Auto) 0.62 (0.00-0.80) 10^3/uL Eos # (Auto) 0.14 (0.00-0.45) 10^3/uL Baso # (Auto) 0.02 10^3/uL Sodium 134 L (136-145) mEq/L Potassium 4.4 (3.5-5.0) mEq/L Chloride 99 (98-106) mEq/L Carbon Dioxide 27 (21-32) mmol/L BUN 13 (7-18) mg/dL Creatinine 0.9 (0.7-1.3) mg/dL Est Cr Clr Drug Dosing TNP Estimated GFR (MDRD) > 60 (>=60) mL/min Glucose 115 H D (75-99) mg/dL Calcium 9.2 (8.4-10.1) mg/dL Total Bilirubin 0.3 (0.0-1.0) mg/dL AST 23 (15-37) U/L ALT 22 (12-78) U/L Alkaline Phosphatase 132 H (46-116) U/L Total Protein 7.4 (6.4-8.2) g/dL Albumin 3.4 (3.4-5.0) g/dL Urine Color (YELLOW) Urine Appearance (CLEAR) Urine pH (4.5-8.0) Ur Specific [place] (1.003-1.020) Urine Protein (NEGATIVE) mg/dL Urine Glucose (UA) (NEGATIVE) mg/dL Urine Ketones (NEGATIVE) mg/dL Urine Occult Blood (NEGATIVE) Urine Nitrite (NEGATIVE) Urine Bilirubin (NEGATIVE) Urine Urobilinogen (0.2-1.0) EU/dL Ur Leukocyte Esterase (NEGATIVE) Urine RBC (0-5) /HPF Urine WBC (0-5) /HPF Ur Squamous Epith Cells (NOT SEEN) /HPF Urine Opiates Screen (NEGATIVE) Ur Oxycodone Screen (NEGATIVE) Urine Methadone Screen (NEGATIVE) Ur Barbiturates Screen (NEGATIVE) U Tricyclic Antidepress (NEGATIVE) Ur Phencyclidine Scrn (NEGATIVE) Ur Amphetamine Screen (NEGATIVE) U Methamphetamines Scrn (NEGATIVE) Urine MDMA Screen (NEGATIVE) U Benzodiazepines Scrn (NEGATIVE) Urine Cocaine Screen (NEGATIVE) U Marijuana (THC) Screen (NEGATIVE) Ethyl Alcohol < 0 L (0-3) mg/dL COVID-19 (ANA) (NEGATIVE) 10/23/19 10/23/19 10/23/19 Range/Units 17:20 17:20 22:35 WBC (5.0-10.0) 10^3/uL RBC (4.50-6.00) 10^6/uL Hgb (14.0-18.0) g/dL Hct (40.0-54.0) % MCV (82.0-94.0) fL MCH (27.0-32.0) pg MCHC (33.0-38.0) g/dL RDW Coeff of Helen (11.0-15.0) % Plt Count (150-400) 10^3/uL Neut % (Auto) (35-85) % Lymph % (Auto) (10-55) % Rowan % (Auto) (0-16) % Eos % (Auto) (0-5) % Baso % (Auto) (0-3) % Neut # (Auto) (1.80-7.00) 10^3/uL Lymph # (Auto) (1.00-4.80) 10^3/uL Rowan # (Auto) (0.00-0.80) 10^3/uL Eos # (Auto) (0.00-0.45) 10^3/uL Baso # (Auto) 10^3/uL Sodium (136-145) mEq/L Potassium (3.5-5.0) mEq/L Chloride (98-106) mEq/L Carbon Dioxide (21-32) mmol/L BUN (7-18) mg/dL Creatinine (0.7-1.3) mg/dL Est Cr Clr Drug Dosing Estimated GFR (MDRD) (>=60) mL/min Glucose (75-99) mg/dL Calcium (8.4-10.1) mg/dL Total Bilirubin (0.0-1.0) mg/dL AST (15-37) U/L ALT (12-78) U/L Alkaline Phosphatase (46-116) U/L Total Protein (6.4-8.2) g/dL Albumin (3.4-5.0) g/dL Urine Color Yellow (YELLOW) Urine Appearance Clear (CLEAR) Urine pH 6.5 (4.5-8.0) Ur Specific [place] 1.025 H (1.003-1.020) Urine Protein 30 H (NEGATIVE) mg/dL Urine Glucose (UA) Negative (NEGATIVE) mg/dL Urine Ketones Negative (NEGATIVE) mg/dL Urine Occult Blood Trace-intact H (NEGATIVE) Urine Nitrite Negative (NEGATIVE) Urine Bilirubin Negative (NEGATIVE) Urine Urobilinogen 0.2 (0.2-1.0) EU/dL Ur Leukocyte Esterase Negative (NEGATIVE) Urine RBC 0-5 (0-5) /HPF Urine WBC 0-5 (0-5) /HPF Ur Squamous Epith Cells Few H (NOT SEEN) /HPF Urine Opiates Screen Negative (NEGATIVE) Ur Oxycodone Screen Negative (NEGATIVE) Urine Methadone Screen Negative (NEGATIVE) Ur Barbiturates Screen Negative (NEGATIVE) U Tricyclic Antidepress Negative (NEGATIVE) Ur Phencyclidine Scrn Negative (NEGATIVE) Ur Amphetamine Screen Negative (NEGATIVE) U Methamphetamines Scrn Negative (NEGATIVE) Urine MDMA Screen Negative (NEGATIVE) U Benzodiazepines Scrn Positive H (NEGATIVE) Urine Cocaine Screen Negative (NEGATIVE) U Marijuana (THC) Screen Negative (NEGATIVE) Ethyl Alcohol (0-3) mg/dL COVID-19 (ANA) Negative (NEGATIVE) Meds: Medications Discontinued Medications Generic Name Dose Route Start Last Admin Trade Name Freq PRN Reason Stop Dose Admin Naloxone HCl 1 mg 10/23/19 16:56 10/23/19 17:23 Narcan IVPUSH 10/23/19 16:57 Not Given ONETIME ONE Naloxone HCl 2 mg 10/23/19 17:21 10/23/19 17:22 Narcan IVPUSH 10/23/19 17:22 2 mg ONETIME ONE Administration - Re-Assessments/Exams Free Text/Narrative Re-Assessment/Exam: 10/23/2019 1730- Narcan was given about 10 minutes prior and no change in mental status. He remains drowsy but wakes when talked to and is alert and oriented. 10/23/19 17:45 called [facility] in [place] and talked to Rafal the intake reviewer. Will fax info as requested and they will let us know if they can take him tonight. 10/23/19 21:39 pt has been cleared by poison control as stable to transfer. 10/23/19 22:[address] Leonardo psychiatrist at [facility] and she will accept once the proper paper work is completed. She also requested rapid COVID test which will be completed here. 10/23/19 23:45 paperwork is completed and pt has been accepted by Dr. Leonardo. COVID is negative at this time. Pt will be transferred per [facility] ambulance. Risk of transfer were discussed with pt to include worsening of condition. Benefit of transfer include specialty psych care and interventions not able to be provided at this facility. risk of not transfer would include no mental health interventions and worsening of condition. Pt is in agreement of transfer. Departure - Departure Time of Disposition: 00:31 Disposition: DC/Tfer to Acute Hospital 02 Condition: Good Clinical Impression: Suicidal intent, Grief reaction - Discharge Information *PRESCRIPTION DRUG MONITORING PROGRAM REVIEWED*: Not Applicable *COPY OF PRESCRIPTION DRUG MONITORING REPORT IN PATIENT ROBIN: Not Applicable Referrals: Zheng Garrett MD [Primary Care Provider] - Forms: ED Department Discharge Additional Instructions: ED HPI GENERAL MEDICAL PROBLEM - General Chief Complaint: General Stated Complaint: "unknown amount of pills taken" Time Seen by Provider: 10/23/19 16:45 Source of Information: Reports: Patient, RN History Limitations: Reports: Altered Mental Status - History of Present Illness INITIAL COMMENTS - FREE TEXT/NARRATIVE: pt states that he took his ativan starting about 2-3 pm today. The bottle was filled with #30 (0.5) on 10/16/19 and is empty. He is unsure if he had taken any out of the bottle before that. He has a bottle of hydrocodone that was filled in 2017 and #20 was in the bottle at that time and there are #10 left. He isn't sure if he took any or was just thinking about it and then later stated that he took 3 of the big ones. He is alert and oriented and tells me he just wants to go see Cnitia who is his that about 6 months ago. He has been very lonely without her since she . Last week would have been there 53rd anniversary. Has been seeing DARREN Andrade. He continues to repeat that he is just lonesome. He continues to tell me that he just wants to as he can't take the lonliness. He had called his son earlier in the day to tell him "there is nothing to worry about anymore". Neighbor had brought over cookies this afternoon and he told her that he had taken them. EKG is done and is consistent with previous EKG. Onset: Today - Related Data Allergies Allergy/AdvReac Type Severity Reaction Status Date / Time clarithromycin [From Biaxin] Allergy Rash Verified 10/23/19 17:31 doxycycline Allergy Rash Verified 10/23/19 17:31 Penicillins Allergy Rash Verified 10/23/19 17:31 Home Meds: Home Meds Omeprazole [Prilosec] 20 mg PO DAILY 05/01/13 [History] carBAMazepine [TEGretol Tab] 100 mg PO QID 05/01/13 [History] Tamsulosin HCl 0.4 mg PO BEDTIME 03/11/15 [History] Apixaban [Eliquis] 5 mg PO BID 05/28/17 [History] Losartan Potassium 25 mg PO BID 07/07/19 [History] Clopidogrel [Plavix] 75 mg PO DAILY 10/23/19 [History] Sertraline [Zoloft] 50 mg PO DAILY 10/23/19 [History] hydrOXYzine pamoate [Hydroxyzine Pamoate] 50 mg PO ASDIRECTED PRN 10/23/19 [History] metFORMIN [Glucophage] 500 mg PO BIDMEALS 10/23/19 [History] Past Medical History HEENT History: Reports: Allergic Rhinitis Other HEENT History: GLASSES Cardiovascular History: Reports: Afib, Arrhythmia, Heart Murmur, Pacemaker, SOB on Exertion Respiratory History: Reports: None Gastrointestinal History: Reports: GERD Genitourinary History: Reports: BPH Other Genitourinary History: OVERACTIVE BLADDER Musculoskeletal History: Reports: Arthritis Neurological History: Reports: Seizure Psychiatric History: Reports: Depression Endocrine/Metabolic History: Reports: Obesity/BMI 30+ Hematologic History: Reports: Anticoagulation Therapy - Past Surgical History Head Surgeries/Procedures: Reports: None HEENT Surgical History: Reports: None Cardiovascular Surgical History: Reports: Cardiac Ablation, Pacer Respiratory Surgical History: Reports: None GI Surgical History: Reports: Colonoscopy Musculoskeletal Surgical History: Reports: Knee Replacement Social & Family History - Family History Family Medical History: Noncontributory Cardiac: Reports: High Cholesterol, Hypertension - Caffeine Use Caffeine Use: Reports: None - Living Situation & Occupation Living situation: Reports: , Alone Occupation: Retired ED ROS GENERAL - Review of Systems Review Of Systems: See Below Constitutional: Denies: Fever, Chills HEENT: Reports: No Symptoms Respiratory: Reports: No Symptoms Cardiovascular: Reports: No Symptoms GI/Abdominal: Reports: No Symptoms : Reports: No Symptoms Musculoskeletal: Reports: No Symptoms Skin: Reports: No Symptoms Neurological: Reports: No Symptoms Psychiatric: Reports: Depression, Suicidal Ideation ED EXAM, GENERAL - Physical Exam Exam: See Below Exam Limited By: No Limitations General Appearance: Alert, WD/WN, No Apparent Distress Eye Exam: Bilateral Eye: PERRL (4mm bilaterally and equal.) Ears: Normal External Exam, Normal Canal Nose: Normal Inspection Throat/Mouth: Normal Inspection, Normal Oropharynx Head: Atraumatic, Normocephalic Neck: Normal Inspection, Supple Respiratory/Chest: No Respiratory Distress, Lungs Clear, Normal Breath Sounds Cardiovascular: Normal Peripheral Pulses, Regular Rate, Rhythm, No Edema GI/Abdominal: Normal Bowel Sounds, Soft, Non-Tender Extremities: Normal Inspection, No Pedal Edema, Normal Capillary Refill Neurological: Alert, Oriented, CN II-XII Intact, Normal Cognition. No: Disoriented, Slow to Respond Skin Exam: Warm, Dry, Intact Course - Vital Signs Last Recorded V/S: Last Vital Signs Temp 97.7 F 10/23/19 22:15 Pulse 70 10/23/19 22:15 Resp 16 10/23/19 22:15 BP 131/87 10/23/19 22:15 Pulse Ox 96 10/23/19 22:15 - Orders/Labs/Meds Orders: Active Orders 24 hr Category Date Time Status ACETAMINOPHEN [REF] Stat Lab 10/23/19 16:53 Received SALICYLATE [REF] Stat Lab 10/23/19 16:53 Received Labs: Laboratory Tests 10/23/19 10/23/19 10/23/19 Range/Units 16:45 16:53 16:53 WBC 6.6 (5.0-10.0) 10^3/uL RBC 4.07 L (4.50-6.00) 10^6/uL Hgb 12.9 L (14.0-18.0) g/dL Hct 37.8 L (40.0-54.0) % MCV 92.9 (82.0-94.0) fL MCH 31.7 (27.0-32.0) pg MCHC 34.1 (33.0-38.0) g/dL RDW Coeff of Ehlen 12.8 (11.0-15.0) % Plt Count 248 (150-400) 10^3/uL Neut % (Auto) 74.6 (35-85) % Lymph % (Auto) 13.6 (10-55) % Rowan % (Auto) 9.4 (0-16) % Eos % (Auto) 2.1 (0-5) % Baso % (Auto) 0.3 (0-3) % Neut # (Auto) 4.93 (1.80-7.00) 10^3/uL Lymph # (Auto) 0.90 L (1.00-4.80) 10^3/uL Rowan # (Auto) 0.62 (0.00-0.80) 10^3/uL Eos # (Auto) 0.14 (0.00-0.45) 10^3/uL Baso # (Auto) 0.02 10^3/uL Sodium 134 L (136-145) mEq/L Potassium 4.4 (3.5-5.0) mEq/L Chloride 99 (98-106) mEq/L Carbon Dioxide 27 (21-32) mmol/L BUN 13 (7-18) mg/dL Creatinine 0.9 (0.7-1.3) mg/dL Est Cr Clr Drug Dosing TNP Estimated GFR (MDRD) > 60 (>=60) mL/min Glucose 115 H D (75-99) mg/dL Calcium 9.2 (8.4-10.1) mg/dL Total Bilirubin 0.3 (0.0-1.0) mg/dL AST 23 (15-37) U/L ALT 22 (12-78) U/L Alkaline Phosphatase 132 H (46-116) U/L Total Protein 7.4 (6.4-8.2) g/dL Albumin 3.4 (3.4-5.0) g/dL Urine Color (YELLOW) Urine Appearance (CLEAR) Urine pH (4.5-8.0) Ur Specific [place] (1.003-1.020) Urine Protein (NEGATIVE) mg/dL Urine Glucose (UA) (NEGATIVE) mg/dL Urine Ketones (NEGATIVE) mg/dL Urine Occult Blood (NEGATIVE) Urine Nitrite (NEGATIVE) Urine Bilirubin (NEGATIVE) Urine Urobilinogen (0.2-1.0) EU/dL Ur Leukocyte Esterase (NEGATIVE) Urine RBC (0-5) /HPF Urine WBC (0-5) /HPF Ur Squamous Epith Cells (NOT SEEN) /HPF Urine Opiates Screen (NEGATIVE) Ur Oxycodone Screen (NEGATIVE) Urine Methadone Screen (NEGATIVE) Ur Barbiturates Screen (NEGATIVE) U Tricyclic Antidepress (NEGATIVE) Ur Phencyclidine Scrn (NEGATIVE) Ur Amphetamine Screen (NEGATIVE) U Methamphetamines Scrn (NEGATIVE) Urine MDMA Screen (NEGATIVE) U Benzodiazepines Scrn (NEGATIVE) Urine Cocaine Screen (NEGATIVE) U Marijuana (THC) Screen (NEGATIVE) Ethyl Alcohol < 0 L (0-3) mg/dL COVID-19 (ANA) (NEGATIVE) 10/23/19 10/23/19 10/23/19 Range/Units 17:20 17:20 22:35 WBC (5.0-10.0) 10^3/uL RBC (4.50-6.00) 10^6/uL Hgb (14.0-18.0) g/dL Hct (40.0-54.0) % MCV (82.0-94.0) fL MCH (27.0-32.0) pg MCHC (33.0-38.0) g/dL RDW Coeff of Helen (11.0-15.0) % Plt Count (150-400) 10^3/uL Neut % (Auto) (35-85) % Lymph % (Auto) (10-55) % Rowan % (Auto) (0-16) % Eos % (Auto) (0-5) % Baso % (Auto) (0-3) % Neut # (Auto) (1.80-7.00) 10^3/uL Lymph # (Auto) (1.00-4.80) 10^3/uL Rowan # (Auto) (0.00-0.80) 10^3/uL Eos # (Auto) (0.00-0.45) 10^3/uL Baso # (Auto) 10^3/uL Sodium (136-145) mEq/L Potassium (3.5-5.0) mEq/L Chloride (98-106) mEq/L Carbon Dioxide (21-32) mmol/L BUN (7-18) mg/dL Creatinine (0.7-1.3) mg/dL Est Cr Clr Drug Dosing Estimated GFR (MDRD) (>=60) mL/min Glucose (75-99) mg/dL Calcium (8.4-10.1) mg/dL Total Bilirubin (0.0-1.0) mg/dL AST (15-37) U/L ALT (12-78) U/L Alkaline Phosphatase (46-116) U/L Total Protein (6.4-8.2) g/dL Albumin (3.4-5.0) g/dL Urine Color Yellow (YELLOW) Urine Appearance Clear (CLEAR) Urine pH 6.5 (4.5-8.0) Ur Specific [place] 1.025 H (1.003-1.020) Urine Protein 30 H (NEGATIVE) mg/dL Urine Glucose (UA) Negative (NEGATIVE) mg/dL Urine Ketones Negative (NEGATIVE) mg/dL Urine Occult Blood Trace-intact H (NEGATIVE) Urine Nitrite Negative (NEGATIVE) Urine Bilirubin Negative (NEGATIVE) Urine Urobilinogen 0.2 (0.2-1.0) EU/dL Ur Leukocyte Esterase Negative (NEGATIVE) Urine RBC 0-5 (0-5) /HPF Urine WBC 0-5 (0-5) /HPF Ur Squamous Epith Cells Few H (NOT SEEN) /HPF Urine Opiates Screen Negative (NEGATIVE) Ur Oxycodone Screen Negative (NEGATIVE) Urine Methadone Screen Negative (NEGATIVE) Ur Barbiturates Screen Negative (NEGATIVE) U Tricyclic Antidepress Negative (NEGATIVE) Ur Phencyclidine Scrn Negative (NEGATIVE) Ur Amphetamine Screen Negative (NEGATIVE) U Methamphetamines Scrn Negative (NEGATIVE) Urine MDMA Screen Negative (NEGATIVE) U Benzodiazepines Scrn Positive H (NEGATIVE) Urine Cocaine Screen Negative (NEGATIVE) U Marijuana (THC) Screen Negative (NEGATIVE) Ethyl Alcohol (0-3) mg/dL COVID-19 (ANA) Negative (NEGATIVE) Meds: Medications Discontinued Medications Generic Name Dose Route Start Last Admin Trade Name Krys PRN Reason Stop Dose Admin Naloxone HCl 1 mg 10/23/19 16:56 10/23/19 17:23 Narcan IVPUSH 10/23/19 16:57 Not Given ONETIME ONE Naloxone HCl 2 mg 10/23/19 17:21 10/23/19 17:22 Narcan IVPUSH 10/23/19 17:22 2 mg ONETIME ONE Administration - Re-Assessments/Exams Free Text/Narrative Re-Assessment/Exam: 10/23/2019 1730- Narcan was given about 10 minutes prior and no change in mental status. He remains drowsy but wakes when talked to and is alert and oriented. 10/23/19 17:45 called [facility] in [place] and talked to Raafl the intake reviewer. Will fax info as requested and they will let us know if they can take him tonight. 10/23/19 21:39 pt has been cleared by poison control as stable to transfer. 10/23/19 22:[address] Leonardo psychiatrist at [facility] and she will accept once the proper paper work is completed. She also requested rapid COVID test which will be completed here. 10/23/19 23:45 paperwork is completed and pt has been accepted by Dr. Leonardo. COVID is negative at this time. Pt will be transferred per [facility]. Risk of transfer were discussed with pt to include worsening of condition. Benefit of transfer include specialty psych care and interventions not able to be provided at this facility. risk of not transfer would include no mental health interventions and worsening of condition. Pt is in agreement of transfer. Departure - Departure Disposition: DC/Tfer to Acute Hospital 02 Condition: Good Clinical Impression: Suicidal intent, Grief reaction - Discharge Information *PRESCRIPTION DRUG MONITORING PROGRAM REVIEWED*: Not Applicable *COPY OF PRESCRIPTION DRUG MONITORING REPORT IN PATIENT ROBIN: Not Applicable Referrals: Zheng Garrett MD [Primary Care Provider] - Forms: ED Department Discharge Sepsis Event Note (ED) - Focused Exam Vital Signs: Vital Signs Temp Pulse Resp BP Pulse Ox 10/23/19 22:15 97.7 F 70 16 131/87 96 10/23/19 21:21 97.7 F 70 13 148/86 H 95 10/23/19 20:36 97.2 F 70 14 134/82 96 10/23/19 19:38 98.0 F 71 15 150/97 H 98 10/23/19 17:10 97.7 F 70 19 138/82 98 10/23/19 16:55 97.1 F 71 22 H 161/99 H 97 10/23/19 16:40 98.3 F 70 20 152/91 H 95 10/23/19 16:25 98.3 F 70 16 156/90 H 95 - My Orders Last 24 Hours: My Active Orders 10/23/19 16:53 ACETAMINOPHEN [REF] Stat SALICYLATE [REF] Stat - Assessment/Plan Last 24 Hours: My Active Orders 10/23/19 16:53 ACETAMINOPHEN [REF] Stat SALICYLATE [REF] Stat pt will transfer to [facility] to Dr. Leonardo- psych services per [facility] ambulance to monitor for sedation and to be in safe environment to prevent further suicidal attempt. Sepsis Event Note (ED) - Focused Exam Vital Signs: Vital Signs Temp Pulse Resp BP Pulse Ox 10/23/19 22:15 97.7 F 70 16 131/87 96 10/23/19 21:21 97.7 F 70 13 148/86 H 95 10/23/19 20:36 97.2 F 70 14 134/82 96 10/23/19 19:38 98.0 F 71 15 150/97 H 98 10/23/19 17:10 97.7 F 70 19 138/82 98 10/23/19 16:55 97.1 F 71 22 H 161/99 H 97 10/23/19 16:40 98.3 F 70 20 152/91 H 95 10/23/19 16:25 98.3 F 70 16 156/90 H 95 - Problem List & Annotations (1) Suicidal intent SNOMED Code(s): 271258520, 622304737 Code(s): R45.851 - SUICIDAL IDEATIONS Status: Acute Priority: High Current Visit: Yes (2) Grief reaction SNOMED Code(s): 182691423 Code(s): F43.21 - ADJUSTMENT DISORDER WITH DEPRESSED MOOD Status: Acute Priority: Medium Current Visit: Yes (3) Depression SNOMED Code(s): 99454939 Code(s): F32.9 - MAJOR DEPRESSIVE DISORDER, SINGLE EPISODE, UNSPECIFIED Status: Acute Priority: Medium Current Visit: No Qualifiers: Depression Type: unspecified Qualified Code(s): F32.9 - Major depressive disorder, single episode, unspecified - Problem List Review Problem List Initiated/Reviewed/Updated: Yes - My Orders Last 24 Hours: My Active Orders 10/23/19 16:53 ACETAMINOPHEN [REF] Stat SALICYLATE [REF] Stat - Assessment/Plan Last 24 Hours: My Active Orders 10/23/19 16:53 ACETAMINOPHEN [REF] Stat SALICYLATE [REF] Stat
[2019-10-24] MEDS ORDERED: carBAMazepine 200 MG Tab PO ONE (00:29)
[2019-10-24] MEDS ORDERED: Tamsulosin 0.4 MG Cap.ER PO ONE (00:30)
[2019-10-24] MEDS ORDERED: Apixaban 5 MG Tab PO ONE (00:30)
[2019-10-24] MEDS ORDERED: Losartan 25 MG Tab PO SCH ×2 (00:33→08:00)
[2019-10-24 02:05] VITALS: BP 152/97; PULSE 69
== END 2019-10-24 01:30 ==
LOC: CC.ED 16:25 → SUPCPDRO 16:25 → CC.ED 10-24 01:30
DX: F43.20 Adjustment disorder, unspecified (principal); R45.851 Suicidal ideations; K21.9 Gastro-esophageal reflux disease without esophagitis; E66.9 Obesity, unspecified; F32.9 Major depressive disorder, single episode, unspecified; I48.91 Unspecified atrial fibrillation; Z88.0 Allergy status to penicillin; Z88.1 Allergy status to other antibiotic agents; Z79.02 Long term (current) use of antithrombotics/antiplatelets; Z79.899 Other long term (current) drug therapy; Z20.828 Contact with and (suspected) exposure to other viral communicable diseases
CPT/HCPCS: 36415; 80053; 80305-QW; 80307; 81001; 85025; 93005; 96374; 99284; 99285-25; A9270-GY; J2310; U0002

== ENCOUNTER 2019-10-28 11:09 | Observation (INO) | payer MEDICARE, OTHER ==
[2019-10-28 11:40] LABS: PTT,PARTIAL THROMBOPLSTIN TIME 31.6 SEC (23.2-32.3)
[2019-10-28 11:51] LABS: CHLORIDE,CL 92 mEq/L (98-106); SODIUM,NA 131 mEq/L (136-145)
--- NOTE | 2019-10-28 13:44 | EDM.PDOC ---
ED HPI GENERAL MEDICAL PROBLEM - General Chief Complaint: General Stated Complaint: "passing out" Time Seen by Provider: 10/28/19 11:30 Source of Information: Reports: Patient History Limitations: Reports: No Limitations - History of Present Illness INITIAL COMMENTS - FREE TEXT/NARRATIVE: Marty is a 74 yo male who is brought over to the ED via wheelchair by clinic nurse with concerns of pre-syncopal episodes. Marty was in the clinic today to see Dr. Garrett for hospital discharge follow up and felt as if he was going to pass out. He admits since he got home last night from being hospitalized in [place] he has been having episodes of emesis. States he is unable to keep anything down. He was admitted last week for a suicide attempt in which he had taken a lot of pills. He has been grieving the loss of his and admits he has been very lonely. States he has no intentions of suicide or thoughts anymore. He has not taken any extra pills since then. He admits he hasn't been able to eat much since being hospitalized. States he is really tired as he doesn't sleep at night because of dreams he has. Denies any chest pain or shortness of breath. States he does have a headache but feels it is because of lack of sleep. - Related Data Allergies Allergy/AdvReac Type Severity Reaction Status Date / Time clarithromycin [From Biaxin] Allergy Rash Verified 10/28/19 11:27 doxycycline Allergy Rash Verified 10/28/19 11:27 Penicillins Allergy Rash Verified 10/28/19 11:27 Home Meds: Home Meds Omeprazole [Prilosec] 20 mg PO DAILY 05/01/13 [History] Tamsulosin HCl 0.4 mg PO DAILY 03/11/15 [History] Apixaban [Eliquis] 5 mg PO BID 05/28/17 [History] Losartan Potassium 50 mg PO BID 07/07/19 [History] Clopidogrel [Plavix] 75 mg PO DAILY 10/23/19 [History] metFORMIN [Glucophage] 500 mg PO BIDMEALS 10/23/19 [History] Empagliflozin [Jardiance] 25 mg PO DAILY 10/28/19 [History] Furosemide [Lasix] 40 mg PO ASDIRECTED 10/28/19 [History] Latanoprost/Pf [Latanoprost 0.005% Eye Drop] 1 drop EYELF BEDTIME 10/28/19 [History] PARoxetine HCL [Paroxetine HCl] 20 mg PO BEDTIME 10/28/19 [History] carBAMazepine [TEGretol XR] 100 mg PO BID 10/28/19 [History] carBAMazepine [TEGretol XR] 200 mg PO BID 10/28/19 [History] Past Medical History HEENT History: Reports: Allergic Rhinitis Other HEENT History: GLASSES Cardiovascular History: Reports: Afib, Arrhythmia, Heart Murmur, Pacemaker, SOB on Exertion Respiratory History: Reports: None Gastrointestinal History: Reports: GERD Genitourinary History: Reports: BPH Other Genitourinary History: OVERACTIVE BLADDER Musculoskeletal History: Reports: Arthritis Neurological History: Reports: Seizure Psychiatric History: Reports: Depression Endocrine/Metabolic History: Reports: Obesity/BMI 30+ Hematologic History: Reports: Anticoagulation Therapy - Past Surgical History Head Surgeries/Procedures: Reports: None HEENT Surgical History: Reports: None Cardiovascular Surgical History: Reports: Cardiac Ablation, Pacer Respiratory Surgical History: Reports: None GI Surgical History: Reports: Colonoscopy Musculoskeletal Surgical History: Reports: Knee Replacement Social & Family History - Family History Family Medical History: Noncontributory Cardiac: Reports: High Cholesterol, Hypertension - Tobacco Use Smoking Status *Q: Unknown Ever Smoked - Caffeine Use Caffeine Use: Reports: None - Living Situation & Occupation Living situation: Reports: , Alone Occupation: Retired ED ROS GENERAL - Review of Systems Review Of Systems: See Below Constitutional: Reports: Weakness, Fatigue, Decreased Appetite. Denies: Fever, Chills HEENT: Reports: No Symptoms Respiratory: Reports: No Symptoms. Denies: Shortness of Breath, Wheezing, Cough Cardiovascular: Reports: Lightheadedness. Denies: Chest Pain, Edema, Palpitations GI/Abdominal: Reports: Abdominal Pain, Nausea, Vomiting. Denies: Bloody Stool, Constipation, Diarrhea, Hematemesis, Hematochezia : Reports: No Symptoms Musculoskeletal: Reports: No Symptoms Skin: Reports: No Symptoms Psychiatric: Reports: Depression. Denies: Suicidal Ideation ED EXAM, GENERAL - Physical Exam Exam: See Below Exam Limited By: No Limitations General Appearance: Alert, No Apparent Distress Eye Exam: Bilateral Eye: Normal Inspection Ears: Normal External Exam, Normal Canal, Normal TMs Nose: Normal Inspection, Normal Mucosa, No Blood Throat/Mouth: Normal Inspection, Normal Lips, Normal Gums, Normal Oropharynx, Normal Voice, No Airway Compromise Head: Atraumatic, Normocephalic Neck: Normal Inspection, Supple, Non-Tender Respiratory/Chest: No Respiratory Distress, Lungs Clear, Normal Breath Sounds, No Accessory Muscle Use Cardiovascular: Regular Rate, Rhythm, No Edema, No Murmur GI/Abdominal: Normal Bowel Sounds, Soft, No Mass, Tender (mild epigastric tenderness). No: Guarding, Rigid, Hepatomegaly, Splenomegaly Extremities: Normal Inspection, No Pedal Edema Neurological: Alert, Oriented, CN II-XII Intact, Normal Cognition, No Motor/Sensory Deficits Psychiatric: Depressed Mood Skin Exam: Warm, Dry, Intact, Normal Color, No Rash EKG INTERPRETATION EKG Date: 10/28/19 [facility]: LAD-Left [facility] Deviation QRS: LBBB Comparison: No Change Course - Vital Signs Last Recorded V/S: Last Vital Signs Temp 97.9 F 10/28/19 13:00 Pulse 70 10/28/19 13:00 Resp 16 10/28/19 13:00 BP 170/101 H 10/28/19 13:00 Pulse Ox 97 10/28/19 13:00 - Orders/Labs/Meds Orders: Active Orders 24 hr Category Date Time Status Patient Status Manage Transfer [TRANSFER] Routine ADT 10/28/19 13:34 Ordered Communication Order [RC] ROUTINE Care 10/28/19 11:30 Active Abdomen 2V AP Flat Upright [CR] Stat Exams 10/28/19 12:17 Taken Chest 2V [CR] Stat Exams 10/28/19 11:20 Taken Head wo Cont [CT] Stat Exams 10/28/19 11:20 Taken Resuscitation Status Routine Resus Stat 10/28/19 13:34 Ordered Labs: Laboratory Tests 10/28/19 10/28/19 10/28/19 Range/Units 11:20 11:20 11:20 WBC 7.3 (5.0-10.0) 10^3/uL RBC 5.08 (4.50-6.00) 10^6/uL Hgb 16.0 (14.0-18.0) g/dL Hct 45.9 (40.0-54.0) % MCV 90.4 (82.0-94.0) fL MCH 31.5 (27.0-32.0) pg MCHC 34.9 (33.0-38.0) g/dL RDW Coeff of Helen 12.8 (11.0-15.0) % Plt Count 287 (150-400) 10^3/uL Neut % (Auto) 78.7 (35-85) % Lymph % (Auto) 10.2 (10-55) % [place] % (Auto) 9.6 (0-16) % Eos % (Auto) 1.4 (0-5) % Baso % (Auto) 0.1 (0-3) % Neut # (Auto) 5.74 (1.80-7.00) 10^3/uL Lymph # (Auto) 0.74 L (1.00-4.80) 10^3/uL [place] # (Auto) 0.70 (0.00-0.80) 10^3/uL Eos # (Auto) 0.10 (0.00-0.45) 10^3/uL Baso # (Auto) 0.01 10^3/uL PT 18.9 H (9.7-12.3) SEC INR 1.88 H (0.92-1.18) APTT 31.6 (23.2-32.3) SEC Sodium 131 L (136-145) mEq/L Potassium 4.1 (3.5-5.0) mEq/L Chloride 92 L (98-106) mEq/L Carbon Dioxide 29 (21-32) mmol/L BUN 18 (7-18) mg/dL Creatinine 1.0 (0.7-1.3) mg/dL Est Cr Clr Drug Dosing 74.35 mL/min Estimated GFR (MDRD) > 60 (>=60) mL/min Glucose 159 H D (75-99) mg/dL Calcium 10.3 H (8.4-10.1) mg/dL Total Bilirubin 0.5 (0.0-1.0) mg/dL AST 30 (15-37) U/L ALT 31 (12-78) U/L Alkaline Phosphatase 150 H (46-116) U/L Lactate Dehydrogenase 249 H (100-190) U/L Creatine Kinase 68 (35-232) U/L Troponin I < 0.017 (0.00-0.06) ng/mL Total Protein 9.5 H (6.4-8.2) g/dL Albumin 4.2 (3.4-5.0) g/dL Lipase 131 (73-393) U/L - Radiology Interpretation Free Text/Narrative:: CT head was negative for any acute abnormalities. Departure - Departure Time of Disposition: 13:00 Disposition: Refer to Observation Clinical Impression: Pre-syncope Nausea and vomiting Qualifiers: Vomiting type: unspecified Vomiting Intractability: unspecified Qualified Code(s): R11.2 - Nausea with vomiting, unspecified Depression Qualifiers: Depression Type: unspecified Qualified Code(s): F32.9 - Major depressive disorder, single episode, unspecified - Discharge Information Sepsis Event Note (ED) - Evaluation Sepsis Screening Result: No Definite Risk - Focused Exam Vital Signs: Vital Signs Temp Pulse Pulse Resp BP BP Pulse Ox 10/28/19 13:00 97.9 F 70 16 170/101 H 97 10/28/19 12:45 97.5 F 70 18 148/91 H 95 10/28/19 12:30 98.1 F 70 18 150/96 H 97 10/28/19 12:15 97.6 F 70 14 146/96 H 95 10/28/19 12:00 97 F 70 16 148/94 H 96 10/28/19 11:45 97.2 F 72 16 142/86 H 98 10/28/19 11:30 97.2 F 68 18 142/80 H 98 10/28/19 11:15 97.2 F 70 18 146/84 H 98 - Problem List & Annotations (1) Depression SNOMED Code(s): 54827994 Code(s): F32.9 - MAJOR DEPRESSIVE DISORDER, SINGLE EPISODE, UNSPECIFIED Status: Acute Priority: Medium Current Visit: Yes Qualifiers: Depression Type: unspecified Qualified Code(s): F32.9 - Major depressive disorder, single episode, unspecified (2) Nausea and vomiting SNOMED Code(s): 01322408 Code(s): R11.2 - NAUSEA WITH VOMITING, UNSPECIFIED Status: Acute Current Visit: Yes Qualifiers: Vomiting type: unspecified Vomiting Intractability: unspecified Qualified Code(s): R11.2 - Nausea with vomiting, unspecified (3) Pre-syncope SNOMED Code(s): 352165963 Code(s): R55 - SYNCOPE AND COLLAPSE Status: Acute Current Visit: Yes - My Orders Last 24 Hours: My Active Orders 10/28/19 11:20 Chest 2V [CR] Stat Head wo Cont [CT] Stat 10/28/19 11:30 Communication Order [RC] ROUTINE 10/28/19 12:17 Abdomen 2V AP Flat Upright [CR] Stat 10/28/19 13:34 Patient Status Manage Transfer [TRANSFER] Routine Resuscitation Status Routine - Assessment/Plan Admission H&P: Please use this note as an admission H&P Last 24 Hours: My Active Orders 10/28/19 11:20 Chest 2V [CR] Stat Head wo Cont [CT] Stat 10/28/19 11:30 Communication Order [RC] ROUTINE 10/28/19 12:17 Abdomen 2V AP Flat Upright [CR] Stat 10/28/19 13:34 Patient Status Manage Transfer [TRANSFER] Routine Resuscitation Status Routine Plan: Consulted with Dr. Garrett in regards to Marty's condition. Will admit to Dr. Garrett's services under observation. Will closely monitor. Ancillary imaging completed is unremarkable. Please use ED dictation for Hospital H&P.
[2019-10-28] MEDS ORDERED: Temazepam 15 MG Cap PO PRN (13:53)
[2019-10-28] MEDS ORDERED: Sodium Chloride 0.9% 1,000 ML IV SCH (14:00)
[2019-10-28] MEDS ORDERED: Ondansetron 4 MG/2 ML SDV IV PRN (14:45)
[2019-10-28] MEDS ORDERED: Ondansetron 8 MG in Sodium Chloride 0.9% 50 ML IV PRN (14:45)
[2019-10-28] MEDS: Pantoprazole 40 MG Vial IVPUSH SCH (16:33)
[2019-10-28] MEDS: Acetaminophen 325 MG Tab PO PRN ×2 (17:20→17:39)
[2019-10-28] MEDS: METFORMIN 500 MG PO SCH ×2 (17:21→17:41)
[2019-10-28] MEDS: CARBAMAZEPINE 100 MG PO SCH (19:38)
[2019-10-28] MEDS: LOSARTAN 25 MG PO SCH (19:39)
[2019-10-28] MEDS: APIXABAN 5 MG PO SCH (19:40)
[2019-10-28] MEDS: Tamsulosin 0.4 MG Cap.ER **PT OWN MED PO SCH (19:41)
[2019-10-28] MEDS: CARBAMAZEPINE 200 MG PO SCH (19:41)
[2019-10-28] MEDS: PAROXETINE HCL 20 MG PO SCH (19:42)
[2019-10-28] MEDS ORDERED: EYE EYELF SCH (20:00)
[2019-10-28] MEDS ORDERED: LATANOPROST 0.005% EYELF SCH (20:00)
[2019-10-28] MEDS: diphenhydrAMINE 25 MG Cap PO PRN (22:04)
[2019-10-29] MEDS: LORazepam 2 MG/ML Syringe IVPUSH PRN ×2 (05:52→14:11)
[2019-10-29 07:41] LABS: CHLORIDE,CL 98 mEq/L (98-106); SODIUM,NA 133 mEq/L (136-145)
[2019-10-29] MEDS: Pantoprazole 40 MG Vial IVPUSH SCH (07:54)
[2019-10-29] MEDS: Furosemide 40 MG Tab PO SCH (07:54)
[2019-10-29] MEDS: LOSARTAN 25 MG PO SCH ×2 (09:16→19:39)
[2019-10-29] MEDS: METFORMIN 500 MG PO SCH ×2 (09:16→17:07)
[2019-10-29] MEDS: APIXABAN 5 MG PO SCH ×2 (09:17→19:41)
[2019-10-29] MEDS: CARBAMAZEPINE 200 MG PO SCH ×2 (09:18→19:38)
[2019-10-29] MEDS: Clopidogrel 75 MG Tab **PT OWN MED PO SCH (09:18)
[2019-10-29] MEDS: CARBAMAZEPINE 100 MG PO SCH ×2 (09:19→19:40)
[2019-10-29] MEDS: Acetaminophen 325 MG Tab PO PRN (11:25)
[2019-10-29] MEDS: Furosemide 20 MG Tab PO SCH (11:28)
[2019-10-29] MEDS: diphenhydrAMINE 25 MG Cap PO PRN (19:37)
[2019-10-29] MEDS: PAROXETINE HCL 20 MG PO SCH (19:37)
[2019-10-29] MEDS: Tamsulosin 0.4 MG Cap.ER **PT OWN MED PO SCH (19:40)
--- NOTE | 2019-10-29 20:56 | PCM.PN ---
- General Info Date of Service: 10/29/19 Admission Dx/Problem (Free Text): Nausea and vomiting Pre-syncope Functional Status: Reports: Pain Controlled, Tolerating Diet, Ambulating - Review of Systems General: Reports: Fatigue. Denies: Fever HEENT: Reports: No Symptoms Pulmonary: Denies: Shortness of Breath, Cough Cardiovascular: Denies: Chest Pain, Edema, Lightheadedness Gastrointestinal: Reports: Nausea. Denies: Abdominal Pain, Vomiting Genitourinary: Reports: No Symptoms Musculoskeletal: Reports: No Symptoms Skin: Reports: No Symptoms Neurological: Reports: Weakness - Patient Data Vitals - Most Recent: Last Vital Signs Temp 98.1 F 10/29/19 11:26 Pulse 81 10/29/19 11:26 Resp 18 10/29/19 11:26 BP 143/62 H 10/29/19 19:39 Pulse Ox 98 10/29/19 11:26 Weight - Most Recent: 250 lb 14.4 oz Lab Results Last 24 Hours: Laboratory Results - last 24 hr 10/28/19 10/29/19 10/29/19 Range/Units 17:20 07:15 07:15 WBC 6.9 (5.0-10.0) 10^3/uL RBC 4.51 (4.50-6.00) 10^6/uL Hgb 14.4 (14.0-18.0) g/dL Hct 41.2 (40.0-54.0) % MCV 91.4 (82.0-94.0) fL MCH 31.9 (27.0-32.0) pg MCHC 35.0 (33.0-38.0) g/dL RDW Coeff of Helen 12.8 (11.0-15.0) % Plt Count 266 (150-400) 10^3/uL Neut % (Auto) 72.2 (35-85) % Lymph % (Auto) 14.7 (10-55) % [place] % (Auto) 11.5 (0-16) % Eos % (Auto) 1.3 (0-5) % Baso % (Auto) 0.3 (0-3) % Neut # (Auto) 4.94 (1.80-7.00) 10^3/uL Lymph # (Auto) 1.01 (1.00-4.80) 10^3/uL [place] # (Auto) 0.79 (0.00-0.80) 10^3/uL Eos # (Auto) 0.09 (0.00-0.45) 10^3/uL Baso # (Auto) 0.02 10^3/uL Sodium 133 L (136-145) mEq/L Potassium 4.3 (3.5-5.0) mEq/L Chloride 98 (98-106) mEq/L Carbon Dioxide 29 (21-32) mmol/L BUN 14 (7-18) mg/dL Creatinine 0.9 (0.7-1.3) mg/dL Est Cr Clr Drug Dosing 82.61 mL/min Estimated GFR (MDRD) > 60 (>=60) mL/min Glucose 149 H (75-99) mg/dL POC Glucose 128 H (75-105) mg/dl Calcium 9.0 (8.4-10.1) mg/dL Magnesium 2.0 (1.8-2.4) mg/dL Total Bilirubin 0.5 (0.0-1.0) mg/dL AST 24 (15-37) U/L ALT 25 (12-78) U/L Alkaline Phosphatase 120 H (46-116) U/L Total Protein 7.7 (6.4-8.2) g/dL Albumin 3.3 L (3.4-5.0) g/dL 10/29/19 10/29/19 Range/Units 07:53 17:06 WBC (5.0-10.0) 10^3/uL RBC (4.50-6.00) 10^6/uL Hgb (14.0-18.0) g/dL Hct (40.0-54.0) % MCV (82.0-94.0) fL MCH (27.0-32.0) pg MCHC (33.0-38.0) g/dL RDW Coeff of Helen (11.0-15.0) % Plt Count (150-400) 10^3/uL Neut % (Auto) (35-85) % Lymph % (Auto) (10-55) % [place] % (Auto) (0-16) % Eos % (Auto) (0-5) % Baso % (Auto) (0-3) % Neut # (Auto) (1.80-7.00) 10^3/uL Lymph # (Auto) (1.00-4.80) 10^3/uL [place] # (Auto) (0.00-0.80) 10^3/uL Eos # (Auto) (0.00-0.45) 10^3/uL Baso # (Auto) 10^3/uL Sodium (136-145) mEq/L Potassium (3.5-5.0) mEq/L Chloride (98-106) mEq/L Carbon Dioxide (21-32) mmol/L BUN (7-18) mg/dL Creatinine (0.7-1.3) mg/dL Est Cr Clr Drug Dosing mL/min Estimated GFR (MDRD) (>=60) mL/min Glucose (75-99) mg/dL POC Glucose 175 H 129 H (75-105) mg/dl Calcium (8.4-10.1) mg/dL Magnesium (1.8-2.4) mg/dL Total Bilirubin (0.0-1.0) mg/dL AST (15-37) U/L ALT (12-78) U/L Alkaline Phosphatase (46-116) U/L Total Protein (6.4-8.2) g/dL Albumin (3.4-5.0) g/dL Med Orders - Current: Current Medications Acetaminophen (Tylenol) 650 mg PO Q4H PRN PRN Reason: Pain (Mild 1-3)/fever Last Admin: 10/29/19 11:25 Dose: 650 mg Documented by: Apixaban (Eliquis) 5 mg PO BID [facility] Last Admin: 10/29/19 19:41 Dose: 5 mg Documented by: Clopidogrel Bisulfate (Plavix) 75 mg PO DAILY [facility] Last Admin: 10/29/19 09:18 Dose: 75 mg Documented by: Diphenhydramine HCl (Benadryl) 25 mg PO Q6H PRN PRN Reason: Itching Last Admin: 10/29/19 19:37 Dose: 25 mg Documented by: Furosemide (Lasix) 40 mg PO DAILY [facility] Last Admin: 10/29/19 07:54 Dose: 40 mg Documented by: Furosemide (Lasix) 20 mg PO WITHLUNCH [facility] Last Admin: 10/29/19 11:28 Dose: Not Given Documented by: Ondansetron HCl 8 mg/ Sodium (Chloride) 54 mls @ 100 mls/hr IV Q8H PRN PRN Reason: NAUSEA Last Admin: 10/28/19 15:00 Dose: 100 mls/hr Documented by: Lorazepam (Ativan) 1 mg IVPUSH Q8H PRN PRN Reason: Anxiety Last Admin: 10/29/19 14:11 Dose: 1 mg Documented by: Losartan Potassium (Cozaar) 50 mg PO BID [facility] Last Admin: 10/29/19 19:39 Dose: 50 mg Documented by: Metformin HCl (Glucophage) 500 mg PO BIDMEALS [facility] Last Admin: 10/29/19 17:07 Dose: 500 mg Documented by: Carbamazepine [ (Tegretol Xr] 100 Mg) 0 mg PO BID [facility] Last Admin: 10/29/19 19:40 Dose: 100 mg Documented by: Paroxetine Hcl 20 Mg (Pt Own Med) 0 mg PO BEDTIME [facility] Last Admin: 10/29/19 19:37 Dose: 20 mg Documented by: Carbamazepine ( Tegretol Xr) 200 Mg Pt Own Med 0 each PO BID [facility] Last Admin: 10/29/19 19:38 Dose: 1 each Documented by: Pantoprazole Sodium (Protonix Iv) 40 mg IVPUSH DAILY [facility] Last Admin: 10/29/19 07:54 Dose: 40 mg Documented by: Tamsulosin HCl (Flomax) 0.4 mg PO BEDTIME [facility] Last Admin: 10/29/19 19:40 Dose: 0.4 mg Documented by: Discontinued Medications Sodium Chloride (Normal Saline) 1,000 mls @ 75 mls/hr IV ASDIRECTED [facility] Last Admin: 10/28/19 14:59 Dose: 75 mls/hr Documented by: Latanoprost 0.005% Eye Drop Pt Own Med 1 drop EYELF BEDTIME [facility] Last Admin: 10/29/19 07:26 Dose: Not Given Documented by: Ondansetron HCl (Zofran) 8 mg IV Q6H PRN PRN Reason: Nausea/Vomiting Temazepam (Restoril) 15 mg PO BEDTIME PRN PRN Reason: Sleep - Exam General: Alert, Oriented HEENT: Mucous Membr. Moist/[place] Neck: Supple Lungs: Clear to Auscultation, Normal Respiratory Effort Cardiovascular: Regular Rate, Regular Rhythm GI/Abdominal Exam: Normal Bowel Sounds, Soft, Non-Tender Extremities: Normal Inspection, No Pedal Edema Skin: Warm, Dry Neurological: No New Focal Deficit Sepsis Event Note - Evaluation Sepsis Screening Result: No Definite Risk - Focused Exam Vital Signs: Vital Signs Temp Pulse Resp BP BP Pulse Ox 10/29/19 19:39 143/62 H 10/29/19 11:26 98.1 F 81 18 147/79 H 98 10/29/19 09:16 128/72 Date Exam was Performed: 10/29/19 Time Exam was Performed: 20:51 - Problem List & Annotations (1) Nausea and vomiting SNOMED Code(s): 32904460 Code(s): R11.2 - NAUSEA WITH VOMITING, UNSPECIFIED Status: Acute Current Visit: Yes Qualifiers: Vomiting type: unspecified Vomiting Intractability: unspecified Qualified Code(s): R11.2 - Nausea with vomiting, unspecified (2) Pre-syncope SNOMED Code(s): 343169915 Code(s): R55 - SYNCOPE AND COLLAPSE Status: Acute Current Visit: Yes - Problem List Review Problem List Initiated/Reviewed/Updated: Yes - My Orders Last 24 Hours: My Active Orders 10/29/19 09:27 Notify Provider Consults [RC] ASDIRECTED Consult to Physician [CONS] Routine 10/29/19 Lunch Regular Diet [DIET] - Assessment Assessment:: Nausea and vomiting Pre-syncope - Plan Plan:: Patient is groggy this am. Had Ativan at 0500, was very restless and anxious. Denies any nausea. States does not feel like eating, doesn't have much of an appetite. Is very tearful. Expresses much dissatisfaction over his past transgressions in life. Is grieving for his and states he cannot forgive himself of the "evils I did over the years". Does feel like he would benefit with seeing a hatchery attendant "to be able to confess" and try to find peace. Had suicidal attempt recently but denies feeling as though he would do that again if wasn't alone at night. Discussed assisted living arrangements at the [facility], he feels that would help him immensely. Did contact Dr. Hernandez who will meet with him tonight. guest services to consult to arrange possible placement at the [facility] or to stay with friends/family until that can be accomplished as he does not feel safe to return home to the place he shared with his for so many years. Likely discharge home tomorrow if able to make these arrangements.
[2019-10-29 21:22] VITALS: PULSE 70
[2019-10-30] MEDS: Pantoprazole 40 MG Vial IVPUSH SCH (07:13)
[2019-10-30] MEDS: Furosemide 40 MG Tab PO SCH (07:13)
[2019-10-30] MEDS: Clopidogrel 75 MG Tab **PT OWN MED PO SCH (07:14)
[2019-10-30] MEDS: APIXABAN 5 MG PO SCH (07:14)
[2019-10-30] MEDS: LOSARTAN 25 MG PO SCH (07:15)
[2019-10-30] MEDS: CARBAMAZEPINE 200 MG PO SCH (07:15)
[2019-10-30] MEDS: CARBAMAZEPINE 100 MG PO SCH (07:15)
[2019-10-30] MEDS: METFORMIN 500 MG PO SCH (07:17)
[2019-10-30 07:22] VITALS: BP 128/74
--- NOTE | 2019-10-30 09:16 | PCM.DCSUM1 ---
Discharge Summary - Hospital Course Free Text/Narrative:: Marty is a 74 year old male who was seen in the ER after a pre-syncopal event. had presented to clinic for a hospital follow up with Dr. Garrett and while checking in, felt like he was going to pass out. He had recently been hospitalized in [place] after a suicide attempt with an overdose of pills. He was switched to Paxil and states [facility] medicine had been making him tired and nauseated. He has been struggling over the last month in particular due to the grieving process of losing his . Has been seeing Sarah Nieves as well for depression/anxiety. He denied any further suicide ideation in the ER. had been taking his meds as prescribed. Labs in ER were negative. CT scan of head was negative. Diagnosis: Stroke: No Modified [place] Scale: No Symptoms at All Modified Mira Scale Score: 0 - Discharge Data Discharge Date: 10/30/19 Discharge Disposition: Home, Self-Care 01 Condition: Good - Referral to Home Health Primary Care Physician: Zheng Garrett MD - Discharge Diagnosis/Problem(s) (1) Nausea and vomiting SNOMED Code(s): 89914587 ICD Code: R11.2 - NAUSEA WITH VOMITING, UNSPECIFIED Status: Acute Priority: High Qualifiers: Vomiting type: unspecified Vomiting Intractability: unspecified Qualified Code(s): R11.2 - Nausea with vomiting, unspecified (2) Pre-syncope SNOMED Code(s): 588085101 ICD Code: R55 - SYNCOPE AND COLLAPSE Status: Acute Priority: High - Patient Summary/Data Complications: none Consults: Consultations 10/29/19 09:27 Consult to Physician [CONS] Routine Hospital Course: Patient is doing well today, appears in better spirits, less tearful. Has been counseled by Father Ethan and Dr. Hernandez last evening. Appetite is good. No further nausea. Did sleep well last night. community services manager did meet with patient in regards to home safety, arrangements for assisted living. patient admits he does well during the day when he can stay busy but does not do well home alone at night. Plans to stay with a friend for the overnights until he can get an apartment at either the [facility] here in [place] or at [facility] in [place]. Does plan to follow up with Dr. Hernandez again on Sunday. patient admits he has been able to open up about past sins/transgressions and is working at finding peace and feels he will do better if he can find that. - Patient Instructions Diet: Diabetic Diet Activity: As Tolerated - Discharge Plan *PRESCRIPTION DRUG MONITORING PROGRAM REVIEWED*: No *COPY OF PRESCRIPTION DRUG MONITORING REPORT IN PATIENT ROBIN: No Home Medications: Home Meds Omeprazole [Prilosec] 20 mg PO DAILY 05/01/13 [History] Tamsulosin HCl 0.4 mg PO DAILY 03/11/15 [History] Apixaban [Eliquis] 5 mg PO BID 05/28/17 [History] Losartan Potassium 50 mg PO BID 07/07/19 [History] Clopidogrel [Plavix] 75 mg PO DAILY 10/23/19 [History] metFORMIN [Glucophage] 500 mg PO BIDMEALS 10/23/19 [History] Empagliflozin [Jardiance] 25 mg PO DAILY 10/28/19 [History] Furosemide [Lasix] 40 mg PO ASDIRECTED 10/28/19 [History] Latanoprost/Pf [Latanoprost 0.005% Eye Drop] 1 drop EYELF BEDTIME 10/28/19 [History] PARoxetine HCL [Paroxetine HCl] 20 mg PO BEDTIME 10/28/19 [History] carBAMazepine [TEGretol XR] 100 mg PO BID 10/28/19 [History] carBAMazepine [TEGretol XR] 200 mg PO BID 10/28/19 [History] Forms: ED Department Discharge Referrals: Zheng Garrett MD [Primary Care Provider] - (Follow up with Dr. Garrett in 2 weeks) - Discharge Summary/Plan Comment DC Time >30 min.: No - General Info Date of Service: 10/30/19 Admission Dx/Problem (Free Text: Nausea and vomiting Pre-syncope Functional Status: Reports: Pain Controlled, Tolerating Diet, Ambulating - Review of Systems General: Reports: No Symptoms HEENT: Reports: No Symptoms Pulmonary: Reports: No Symptoms Cardiovascular: Reports: No Symptoms Gastrointestinal: Reports: No Symptoms Genitourinary: Reports: No Symptoms Musculoskeletal: Reports: No Symptoms Skin: Reports: No Symptoms Neurological: Reports: No Symptoms Psychiatric: Reports: Depression, Anxiety. Denies: Suicidal Ideation, Homicidal Ideation - Patient Data Vitals - Most Recent: Last Vital Signs Temp 97.9 F 10/30/19 07:44 Pulse 70 10/30/19 07:44 Resp 16 10/30/19 07:44 BP 128/74 10/30/19 07:44 Pulse Ox 99 10/30/19 07:44 Weight - Most Recent: 250 lb 14.4 oz Lab Results - Last 24 hrs: Laboratory Results - last 24 hr 10/29/19 10/30/19 Range/Units 17:06 07:19 POC Glucose 129 H 133 H (75-105) mg/dl Med Orders - Current: Current Medications Acetaminophen (Tylenol) 650 mg PO Q4H PRN PRN Reason: Pain (Mild 1-3)/fever Last Admin: 10/29/19 11:25 Dose: 650 mg Documented by: Apixaban (Eliquis) 5 mg PO BID [facility] Last Admin: 10/30/19 07:14 Dose: 5 mg Documented by: Clopidogrel Bisulfate (Plavix) 75 mg PO DAILY [facility] Last Admin: 10/30/19 07:14 Dose: 75 mg Documented by: Diphenhydramine HCl (Benadryl) 25 mg PO Q6H PRN PRN Reason: Itching Last Admin: 10/29/19 19:37 Dose: 25 mg Documented by: Furosemide (Lasix) 40 mg PO DAILY [facility] Last Admin: 10/30/19 07:13 Dose: 40 mg Documented by: Furosemide (Lasix) 20 mg PO WITHLUNCH [facility] Last Admin: 10/29/19 11:28 Dose: Not Given Documented by: Ondansetron HCl 8 mg/ Sodium (Chloride) 54 mls @ 100 mls/hr IV Q8H PRN PRN Reason: NAUSEA Last Admin: 10/28/19 15:00 Dose: 100 mls/hr Documented by: Lorazepam (Ativan) 1 mg IVPUSH Q8H PRN PRN Reason: Anxiety Last Admin: 10/29/19 14:11 Dose: 1 mg Documented by: Losartan Potassium (Cozaar) 50 mg PO BID [facility] Last Admin: 10/30/19 07:15 Dose: 50 mg Documented by: Metformin HCl (Glucophage) 500 mg PO BIDMEALS [facility] Last Admin: 10/30/19 07:17 Dose: 500 mg Documented by: Carbamazepine [ (Tegretol Xr] 100 Mg) 0 mg PO BID [facility] Last Admin: 10/30/19 07:15 Dose: 100 mg Documented by: Paroxetine Hcl 20 Mg (Pt Own Med) 0 mg PO BEDTIME [facility] Last Admin: 10/29/19 19:37 Dose: 20 mg Documented by: Carbamazepine ( Tegretol Xr) 200 Mg Pt Own Med 0 each PO BID [facility] Last Admin: 10/30/19 07:15 Dose: 1 each Documented by: Pantoprazole Sodium (Protonix Iv) 40 mg IVPUSH DAILY [facility] Last Admin: 10/30/19 07:13 Dose: 40 mg Documented by: Tamsulosin HCl (Flomax) 0.4 mg PO BEDTIME [facility] Last Admin: 10/29/19 19:40 Dose: 0.4 mg Documented by: Discontinued Medications Sodium Chloride (Normal Saline) 1,000 mls @ 75 mls/hr IV ASDIRECTED [facility] Last Admin: 10/28/19 14:59 Dose: 75 mls/hr Documented by: Latanoprost 0.005% Eye Drop Pt Own Med 1 drop EYELF BEDTIME [facility] Last Admin: 10/29/19 07:26 Dose: Not Given Documented by: Ondansetron HCl (Zofran) 8 mg IV Q6H PRN PRN Reason: Nausea/Vomiting Temazepam (Restoril) 15 mg PO BEDTIME PRN PRN Reason: Sleep - Exam General: Reports: Alert, Oriented HEENT: Reports: Mucous Membr. Moist/[place] Neck: Reports: Supple Lungs: Reports: Clear to Auscultation, Normal Respiratory Effort Cardiovascular: Reports: Regular Rate, Regular Rhythm GI/Abdominal Exam: Normal Bowel Sounds, Soft, Non-Tender Skin: Reports: Warm, Dry Neurological: Reports: No New Focal Deficit Psy/Mental Status: Reports: Alert, Depressed. Denies: Suicidal Ideation, Homicidal Ideation
[2019-10-30] MEDS: Furosemide 20 MG Tab PO SCH (11:46)
== END 2019-10-30 09:14 | disposition home or self-care (01) ==
LOC: CC.ED 11:09 → CC.MS 13:34 → UNDOADMOB 13:47
PROVIDERS: ADMIT Physician Assistant Medical; ATTEND Family Medicine
DX: R55 Syncope and collapse (principal); R11.2 Nausea with vomiting, unspecified; K21.9 Gastro-esophageal reflux disease without esophagitis; F32.9 Major depressive disorder, single episode, unspecified; E66.9 Obesity, unspecified; F41.9 Anxiety disorder, unspecified; Z79.899 Other long term (current) drug therapy; Z88.0 Allergy status to penicillin; Z88.1 Allergy status to other antibiotic agents; Z68.33 Body mass index [BMI] 33.0-33.9, adult
CPT/HCPCS: 36415; 70450; 71046; 74019; 80053; 82550; 82962; 83615; 83690; 83735; 84484; 85025; 85610; 85730; 93005; 93010; 96361; 96365; 96375; 96376; 99217; 99220; 99225; 99285-25; A9270-GY; C9113; G0378; J2060; J2405; J7030; J7050

== ENCOUNTER 2020-05-09 05:38 | Observation (INO) | payer MEDICARE, OTHER ==
--- NOTE | 2020-05-09 06:00 | EDM.PDOC ---
ED HPI GENERAL MEDICAL PROBLEM - General Chief Complaint: General Stated Complaint: covid positive, sweats, passing out Time Seen by Provider: 05/09/20 05:50 Source of Information: Reports: Patient, EMS History Limitations: Reports: No Limitations - History of Present Illness INITIAL COMMENTS - FREE TEXT/NARRATIVE: Marty is a 75 year old male who presents to ER after a syncopal episode. has had nausea and vomiting since Sunday, diagnosed with Covid. Has been taking Zofran every 6 hours. Was up in his recliner this am, usually sleeps there nightly and has for years. Got sweaty and "blacked out". No loss of urine or bowel. History of frequent syncopal episodes, has been very lightheaded as of late due to not being able to eat. Unaware of any fevers. Denies shortness of breath. Feels very weak. Sonya has been very depressed as of late, was the 1 year anniversary of his 's . Onset: Gradual Duration: Day(s): Location: Reports: Generalized Quality: Reports: Ache Severity: Mild Associated Symptoms: Reports: Loss of Appetite, Malaise, Nausea/Vomiting, Syncope, Weakness. Denies: Confusion, Chest Pain, Cough, Fever/Chills, Shortness of Breath Treatments DRAWER IN PLAIN LOOM: Reports: Other Medication(s) (zofran) Abdomen Pain Score (Numeric/FACES): 10 - Related Data Allergies Allergy/AdvReac Type Severity Reaction Status Date / Time clarithromycin [From Biaxin] Allergy Rash Verified 05/09/20 07:01 doxycycline Allergy Rash Verified 05/09/20 07:01 Penicillins Allergy Rash Verified 05/09/20 07:01 Home Meds: Home Meds Omeprazole [Prilosec] 20 mg PO DAILY 05/01/13 [History] Tamsulosin HCl 0.4 mg PO DAILY 03/11/15 [History] Apixaban [Eliquis] 5 mg PO BID 05/28/17 [History] Losartan Potassium 50 mg PO BID 07/07/19 [History] Clopidogrel [Plavix] 75 mg PO DAILY 10/23/19 [History] metFORMIN [Glucophage] 500 mg PO BIDMEALS 10/23/19 [History] Empagliflozin [Jardiance] 25 mg PO DAILY 10/28/19 [History] Furosemide [Lasix] 40 mg PO ASDIRECTED 10/28/19 [History] Latanoprost/Pf [Latanoprost 0.005% Eye Drop] 1 drop EYELF BEDTIME 10/28/19 [History] PARoxetine HCL [Paroxetine HCl] 20 mg PO BEDTIME 10/28/19 [History] carBAMazepine [TEGretol XR] 100 mg PO BID 10/28/19 [History] carBAMazepine [TEGretol XR] 200 mg PO BID 10/28/19 [History] Past Medical History HEENT History: Reports: Allergic Rhinitis Other HEENT History: GLASSES Cardiovascular History: Reports: Afib, Arrhythmia, Heart Murmur, Pacemaker, SOB on Exertion Respiratory History: Reports: None Gastrointestinal History: Reports: GERD Genitourinary History: Reports: BPH Other Genitourinary History: OVERACTIVE BLADDER Musculoskeletal History: Reports: Arthritis Neurological History: Reports: Seizure Psychiatric History: Reports: Depression, Suicide Attempt Endocrine/Metabolic History: Reports: Obesity/BMI 30+ Hematologic History: Reports: Anticoagulation Therapy - Past Surgical History Head Surgeries/Procedures: Reports: None HEENT Surgical History: Reports: None Cardiovascular Surgical History: Reports: Cardiac Ablation, Pacer, Other (See Below) Other Cardiovascular Surgeries/Procedures: heart valve placed Respiratory Surgical History: Reports: None GI Surgical History: Reports: Colonoscopy Musculoskeletal Surgical History: Reports: Knee Replacement Social & Family History - Family History Family Medical History: No Pertinent Family History Cardiac: Reports: High Cholesterol, Hypertension - Caffeine Use Caffeine Use: Reports: None - Living Situation & Occupation Living situation: Reports: , Alone Occupation: Retired ED ROS GENERAL - Review of Systems Review Of Systems: See Below Constitutional: Reports: Chills, Malaise, Weakness, Fatigue, Decreased Appetite. Denies: Fever HEENT: Denies: Ear Pain, Sinus Problem, Throat Pain, Vertigo Respiratory: Denies: Shortness of Breath, Cough Cardiovascular: Reports: Lightheadedness. Denies: Chest Pain, Edema Endocrine: Reports: Fatigue GI/Abdominal: Reports: Abdominal Pain, Nausea, Vomiting. Denies: Constipation, Diarrhea : Reports: No Symptoms Musculoskeletal: Reports: No Symptoms Skin: Reports: No Symptoms Neurological: Reports: No Symptoms ED EXAM, GENERAL - Physical Exam Exam: See Below Exam Limited By: No Limitations General Appearance: Alert, WD/WN, No Apparent Distress Ears: Normal External Exam, Normal TMs Nose: Normal Inspection, Normal Mucosa, No Blood Throat/Mouth: Normal Inspection, Normal Oropharynx Head: Normocephalic Neck: Normal Inspection, Supple, Non-Tender Respiratory/Chest: No Respiratory Distress, Lungs Clear, Normal Breath Sounds Cardiovascular: Regular Rate, Rhythm GI/Abdominal: Normal Bowel Sounds, Soft, Non-Tender Extremities: Normal Inspection, No Pedal Edema Neurological: Alert, Oriented Skin Exam: Warm, Dry Course - Vital Signs Last Recorded V/S: Last Vital Signs Temp 97.8 F 05/09/20 06:30 Pulse 70 05/09/20 06:30 Resp 18 05/09/20 06:30 BP 133/67 05/09/20 06:30 Pulse Ox 96 05/09/20 06:30 - Orders/Labs/Meds Orders: Active Orders 24 hr Category Date Time Status Patient Status Manage Transfer [TRANSFER] Routine ADT 05/09/20 06:47 Active Chest 2V [CR] Stat Exams 05/09/20 05:54 Taken UA RFX SARABJIT AND CULT IF INDIC [URIN] Stat Lab 05/09/20 05:54 Ordered Ondansetron [Zofran] Med 05/09/20 06:30 Active 4 mg IVPUSH Q6H PRN Sodium Chloride 0.9% [Normal Saline] 1,000 ml Med 05/09/20 06:15 Active IV ASDIRECTED Resuscitation Status Routine Resus Stat 05/09/20 06:48 Ordered Medication Orders Sodium Chloride (Normal Saline) 1,000 mls @ 125 mls/hr IV ASDIRECTED OWEN Last Admin: 05/09/20 06:25 Dose: 125 mls/hr Documented by: PEGGY Ondansetron HCl (Zofran) 4 mg IVPUSH Q6H PRN PRN Reason: Nausea Labs: Laboratory Tests 05/09/20 05/09/20 05/09/20 Range/Units 05:54 05:54 05:54 WBC 5.6 (5.0-10.0) 10^3/uL RBC 4.83 (4.50-6.00) 10^6/uL Hgb 15.1 (14.0-18.0) g/dL Hct 41.5 (40.0-54.0) % MCV 85.9 (82.0-94.0) fL MCH 31.3 (27.0-32.0) pg MCHC 36.4 (33.0-38.0) g/dL RDW Coeff of Helen 12.9 (11.0-15.0) % Plt Count 177 (150-400) 10^3/uL Neut % (Auto) 74.1 (35-85) % Lymph % (Auto) 14.3 (10-55) % Butler % (Auto) 10.0 (0-16) % Eos % (Auto) 1.4 (0-5) % Baso % (Auto) 0.2 (0-3) % Neut # (Auto) 4.13 (1.80-7.00) 10^3/uL Lymph # (Auto) 0.80 L (1.00-4.80) 10^3/uL Butler # (Auto) 0.56 (0.00-0.80) 10^3/uL Eos # (Auto) 0.08 (0.00-0.45) 10^3/uL Baso # (Auto) 0.01 10^3/uL D-Dimer, Quantitative 0.87 H (0.00-0.50) Sodium 125 L (136-145) mEq/L Potassium 4.1 (3.5-5.0) mEq/L Chloride 88 L (98-106) mEq/L Carbon Dioxide 30 (21-32) mmol/L BUN 11 (7-18) mg/dL Creatinine 0.9 (0.7-1.3) mg/dL Est Cr Clr Drug Dosing TNP Estimated GFR (MDRD) > 60 (>=60) mL/min Glucose 136 H (75-99) mg/dL Lactic Acid (0.4-2.0) mmol/L Calcium 9.2 (8.4-10.1) mg/dL Magnesium 1.7 L (1.8-2.4) mg/dL Total Bilirubin 0.6 (0.0-1.0) mg/dL AST 27 (15-37) U/L ALT 23 (12-78) U/L Alkaline Phosphatase 141 H (46-116) U/L Troponin I 0.026 (0.00-0.06) ng/mL C-Reactive Protein 1.0 H (0.2-0.8) mg/dL Total Protein 7.9 (6.4-8.2) g/dL Albumin 3.4 (3.4-5.0) g/dL 05/09/20 Range/Units 05:54 WBC (5.0-10.0) 10^3/uL RBC (4.50-6.00) 10^6/uL Hgb (14.0-18.0) g/dL Hct (40.0-54.0) % MCV (82.0-94.0) fL MCH (27.0-32.0) pg MCHC (33.0-38.0) g/dL RDW Coeff of Helen (11.0-15.0) % Plt Count (150-400) 10^3/uL Neut % (Auto) (35-85) % Lymph % (Auto) (10-55) % Butler % (Auto) (0-16) % Eos % (Auto) (0-5) % Baso % (Auto) (0-3) % Neut # (Auto) (1.80-7.00) 10^3/uL Lymph # (Auto) (1.00-4.80) 10^3/uL Butler # (Auto) (0.00-0.80) 10^3/uL Eos # (Auto) (0.00-0.45) 10^3/uL Baso # (Auto) 10^3/uL D-Dimer, Quantitative (0.00-0.50) Sodium (136-145) mEq/L Potassium (3.5-5.0) mEq/L Chloride (98-106) mEq/L Carbon Dioxide (21-32) mmol/L BUN (7-18) mg/dL Creatinine (0.7-1.3) mg/dL Est Cr Clr Drug Dosing Estimated GFR (MDRD) (>=60) mL/min Glucose (75-99) mg/dL Lactic Acid 1.3 (0.4-2.0) mmol/L Calcium (8.4-10.1) mg/dL Magnesium (1.8-2.4) mg/dL Total Bilirubin (0.0-1.0) mg/dL AST (15-37) U/L ALT (12-78) U/L Alkaline Phosphatase (46-116) U/L Troponin I (0.00-0.06) ng/mL C-Reactive Protein (0.2-0.8) mg/dL Total Protein (6.4-8.2) g/dL Albumin (3.4-5.0) g/dL Meds: Medications Generic Name Dose Route Start Last Admin Trade Name Freq PRN Reason Stop Dose Admin Sodium Chloride 1,000 mls @ 125 mls/hr 05/09/20 06:15 05/09/20 06:25 Normal Saline IV 125 mls/hr ASDIRECTED OWEN Administration Ondansetron HCl 4 mg 05/09/20 06:30 Zofran IVPUSH Q6H PRN Nausea - Re-Assessments/Exams Free Text/Narrative Re-Assessment/Exam: 05/09/20 0700 Patient's labs noted, sodium 125, other labs essentially normal. Chest xray is clear. Departure - Departure Time of Disposition: 07:29 Disposition: Refer to Observation Condition: Fair Clinical Impression: Hyponatremia, Syncope, COVID-19 - Discharge Information *PRESCRIPTION DRUG MONITORING PROGRAM REVIEWED*: No *COPY OF PRESCRIPTION DRUG MONITORING REPORT IN PATIENT ROBIN: No Forms: ED Department Discharge Sepsis Event Note (ED) - Focused Exam Vital Signs: Vital Signs Temp Pulse Resp BP Pulse Ox 05/09/20 06:30 97.8 F 70 18 133/67 96 05/09/20 05:40 97.8 F 73 18 148/88 H 98 - Problem List & Annotations (1) COVID-19 SNOMED Code(s): 386494121 Code(s): U07.1 - COVID-19 Status: Acute Priority: High (2) Hyponatremia SNOMED Code(s): 42482088 Code(s): E87.1 - HYPO-OSMOLALITY AND HYPONATREMIA Status: Acute Priority: High (3) Syncope SNOMED Code(s): 637450343 Code(s): R55 - SYNCOPE AND COLLAPSE Status: Acute Priority: High Qualifiers: Encounter type: initial encounter - Problem List Review Problem List Initiated/Reviewed/Updated: Yes - My Orders Last 24 Hours: My Active Orders 05/09/20 05:54 Chest 2V [CR] Stat UA RFX SARABJIT AND CULT IF INDIC [URIN] Stat 05/09/20 06:15 Sodium Chloride 0.9% [Normal Saline] 1,000 ml IV ASDIRECTED 05/09/20 06:30 Ondansetron [Zofran] 4 mg IVPUSH Q6H PRN 05/09/20 06:47 Patient Status Manage Transfer [TRANSFER] Routine 05/09/20 06:48 Resuscitation Status Routine - Assessment/Plan Admission H&P: Please use this note as an admission H&P Last 24 Hours: My Active Orders 05/09/20 05:54 Chest 2V [CR] Stat UA RFX SARABJIT AND CULT IF INDIC [URIN] Stat 05/09/20 06:15 Sodium Chloride 0.9% [Normal Saline] 1,000 ml IV ASDIRECTED 05/09/20 06:30 Ondansetron [Zofran] 4 mg IVPUSH Q6H PRN 05/09/20 06:47 Patient Status Manage Transfer [TRANSFER] Routine 05/09/20 06:48 Resuscitation Status Routine Assessment:: hyponatremia syncope Covid 19 Plan: Patient admitted observation for IV fluids, cardiac monitoring. Repeat labs in am.
[2020-05-09] MEDS: Sodium Chloride 0.9% 1,000 ML IV SCH ×3 (06:25→22:45)
[2020-05-09] MEDS ORDERED: Ondansetron 4 MG/2 ML SDV IVPUSH PRN (06:30)
[2020-05-09 06:37] LABS: CHLORIDE,CL 88 mEq/L (98-106); SODIUM,NA 125 mEq/L (136-145)
[2020-05-09] MEDS ORDERED: Clopidogrel 75 MG Tab PO SCH (08:00)
[2020-05-09] MEDS ORDERED: CLONAZEPAM 0.25 MG PO SCH (08:00)
[2020-05-09] MEDS ORDERED: Ondansetron 4 MG Tab.DIS PO PRN ×2 (08:45→16:17)
[2020-05-09] MEDS ORDERED: Acetaminophen 325 MG Tab PO PRN (08:45)
[2020-05-09] MEDS: Furosemide 40 MG Tab PO SCH (18:58)
[2020-05-09] MEDS ORDERED: ALPRAZolam 0.25 MG Tab PO PRN (19:08)
[2020-05-09] MEDS ORDERED: LORazepam 2 MG/ML Syringe IVPUSH ONE (19:08)
[2020-05-09] MEDS: CARBAMAZEPINE 200 MG PO SCH (19:34)
[2020-05-09] MEDS: CARBAMAZEPINE 100 MG PO SCH (19:34)
[2020-05-09] MEDS: Apixaban 5 MG Tab **PTOM PO SCH (19:34)
[2020-05-09] MEDS: LOSARTAN 50 MG PO SCH (19:35)
[2020-05-09] MEDS ORDERED: PAROXETINE HCL 20 MG PO SCH (20:00)
[2020-05-09] MEDS ORDERED: Tamsulosin 0.4 MG Cap.ER **PTOM PO SCH (20:00)
[2020-05-10] MEDS ORDERED: OMEPRAZOLE 20 MG PO SCH (07:00)
[2020-05-10] MEDS: Sodium Chloride 0.9% 1,000 ML IV SCH (07:04)
[2020-05-10 07:41] LABS: CHLORIDE,CL 97 mEq/L (98-106); SODIUM,NA 132 mEq/L (136-145)
[2020-05-10] MEDS ORDERED: SITAGLIPTIN PO SCH (08:00)
[2020-05-10] MEDS: LOSARTAN 50 MG PO SCH (08:18)
[2020-05-10] MEDS: Apixaban 5 MG Tab **PTOM PO SCH (08:19)
[2020-05-10] MEDS: CARBAMAZEPINE 100 MG PO SCH (08:19)
[2020-05-10] MEDS: CARBAMAZEPINE 200 MG PO SCH (08:20)
[2020-05-10] MEDS: Furosemide 40 MG Tab PO SCH (08:21)
[2020-05-10 09:17] VITALS: BP 168/87; PULSE 78
--- NOTE | 2020-05-10 15:12 | PCM.DCSUM1 ---
Discharge Summary - Hospital Course HPI Initial Comments: Marty is a 75 year old male who presented to ED yesterday after a syncopal episode. He had stated he was nauseated with vomiting Since Sunday of last week. Was recently diagnosed with Covid 6 days ago. Has been taking Zofran for the nausea. Per chart, he was up in his recliner yesterday morning, which he usually sleeps in, and got sweaty and "blacked out". No loss of urine or bowel. History of frequent syncopal episodes, states has been very lightheaded as of late due to not being able to eat. Unaware of any fevers. Denies shortness of breath. Feels very weak. Relates has been very depressed as of late, was the 1 year anniversary of his 's . Diagnosis: Stroke: No - Discharge Data Discharge Date: 05/10/20 Discharge Disposition: Home, Self-Care 01 Condition: Good - Referral to Home Health Primary Care Physician: Zheng Garrett MD - Discharge Diagnosis/Problem(s) (1) COVID-19 SNOMED Code(s): 144684657 ICD Code: U07.1 - COVID-19 Status: Acute Priority: High (2) Hyponatremia SNOMED Code(s): 64288145 ICD Code: E87.1 - HYPO-OSMOLALITY AND HYPONATREMIA Status: Acute Priority: High (3) Nausea and vomiting SNOMED Code(s): 89446250 ICD Code: R11.2 - NAUSEA WITH VOMITING, UNSPECIFIED Status: Resolved Priority: High Qualifiers: Vomiting type: unspecified Vomiting Intractability: unspecified Qualified Code(s): R11.2 - Nausea with vomiting, unspecified (4) Pre-syncope SNOMED Code(s): 042261342 ICD Code: R55 - SYNCOPE AND COLLAPSE Status: Suspected Priority: High - Patient Instructions Diet: Usual Diet as Tolerated Activity: As Tolerated - Discharge Plan *PRESCRIPTION DRUG MONITORING PROGRAM REVIEWED*: No *COPY OF PRESCRIPTION DRUG MONITORING REPORT IN PATIENT ROBIN: No Home Medications: Home Meds Omeprazole [Prilosec] 20 mg PO DAILY 05/01/13 [History] Tamsulosin HCl 0.4 mg PO DAILY 03/11/15 [History] Apixaban [Eliquis] 5 mg PO BID 05/28/17 [History] Losartan Potassium 25 mg PO BID 07/07/19 [History] Clopidogrel [Plavix] 75 mg PO DAILY 10/23/19 [History] Furosemide [Lasix] 40 mg PO ASDIRECTED 10/28/19 [History] PARoxetine HCL [Paroxetine HCl] 40 mg PO DAILY 10/28/19 [History] carBAMazepine [TEGretol XR] 100 mg PO BID 10/28/19 [History] carBAMazepine [TEGretol XR] 200 mg PO BID 10/28/19 [History] Ondansetron [Zofran ODT] 4 mg PO Q6H PRN 05/09/20 [History] clonazePAM [Clonazepam] 0.25 mg PO BID 05/09/20 [History] sitaGLIPtin Phosphate [Januvia] 50 mg PO DAILY 05/09/20 [History] Patient Handouts: Nausea and Vomiting, Adult, [id number], 10 Things You Can Do to Manage Your COVID-19 Symptoms at Home - [facility] Forms: ED Department Discharge Referrals: Zheng Garrett MD [Primary Care Provider] - (2 weeks) - Discharge Summary/Plan Comment DC Time >30 min.: Yes Discharge Summary/Plan Comment: Marty states he is feeling well today. No further abdominal pain or syncopal episodes. Denied any further vomiting. Will discharge home at this time as sodium level has improved. Patient is requesting discharge today. Will follow up with primary provider once off of quarantine. - General Info Date of Service: 05/10/20 Subjective Update: Marty is in good spirits this morning and states he is feeling great. Denies any vomiting or nausea presently. No further abdominal discomfort. Admits he is passing gas without difficulty and feels if he has to have a bowel movement. No fevers. Requesting to be discharged. Functional Status: Reports: Pain Controlled, Tolerating Diet, Ambulating. Denies: New Symptoms - Review of Systems General: Denies: Fever, Fatigue HEENT: Reports: No Symptoms Pulmonary: Denies: Shortness of Breath, Cough Cardiovascular: Denies: Chest Pain, Palpitations Gastrointestinal: Reports: Flatus. Denies: Abdominal Pain, Constipation, Diarrhea, Hematochezia, Melena, Nausea, Vomiting Genitourinary: Reports: No Symptoms Musculoskeletal: Reports: No Symptoms Neurological: Reports: No Symptoms Psychiatric: Reports: No Symptoms - Patient Data Vitals - Most Recent: Last Vital Signs Temp 97.9 F 05/10/20 08:00 Pulse 78 05/10/20 08:00 Resp 18 05/10/20 08:00 BP 168/87 H 05/10/20 08:00 Pulse Ox 99 05/10/20 08:00 Weight - Most Recent: 250 lb I&O - Last 24 hours: Intake & Output 05/10/20 05/10/20 05/10/20 06:59 14:59 22:59 Intake Total 1500 Output Total 1850 Balance -350 Lab Results - Last 24 hrs: Laboratory Results - last 24 hr 05/09/20 05/10/20 05/10/20 Range/Units 17:24 05:11 05:11 WBC 5.7 (5.0-10.0) 10^3/uL RBC 4.39 L (4.50-6.00) 10^6/uL Hgb 13.5 L (14.0-18.0) g/dL Hct 38.3 L (40.0-54.0) % MCV 87.2 (82.0-94.0) fL MCH 30.8 (27.0-32.0) pg MCHC 35.2 (33.0-38.0) g/dL RDW Coeff of Helen 12.9 (11.0-15.0) % Plt Count 184 (150-400) 10^3/uL Neut % (Auto) 71.9 (35-85) % Lymph % (Auto) 15.3 (10-55) % Divide % (Auto) 11.2 (0-16) % Eos % (Auto) 1.4 (0-5) % Baso % (Auto) 0.2 (0-3) % Neut # (Auto) 4.09 (1.80-7.00) 10^3/uL Lymph # (Auto) 0.87 L (1.00-4.80) 10^3/uL Divide # (Auto) 0.64 (0.00-0.80) 10^3/uL Eos # (Auto) 0.08 (0.00-0.45) 10^3/uL Baso # (Auto) 0.01 10^3/uL Sodium 132 L (136-145) mEq/L Potassium 4.6 (3.5-5.0) mEq/L Chloride 97 L (98-106) mEq/L Carbon Dioxide 28 (21-32) mmol/L BUN 10 (7-18) mg/dL Creatinine 0.8 (0.7-1.3) mg/dL Est Cr Clr Drug Dosing 88.92 mL/min Estimated GFR (MDRD) > 60 (>=60) mL/min Glucose 135 H (75-99) mg/dL POC Glucose 97 (75-105) mg/dl Calcium 8.6 (8.4-10.1) mg/dL Magnesium 1.7 L (1.8-2.4) mg/dL Total Bilirubin 0.5 (0.0-1.0) mg/dL AST 24 (15-37) U/L ALT 24 (12-78) U/L Alkaline Phosphatase 123 H (46-116) U/L C-Reactive Protein 0.8 (0.2-0.8) mg/dL Total Protein 6.9 (6.4-8.2) g/dL Albumin 3.0 L (3.4-5.0) g/dL Med Orders - Current: Current Medications Discontinued Medications Acetaminophen (Tylenol) 650 mg PO Q4H PRN PRN Reason: Pain (Mild 1-3)/fever Last Admin: 05/09/20 14:41 Dose: 650 mg Documented by: Alprazolam (Xanax) 0.25 mg PO Q6H PRN PRN Reason: Anxiety Apixaban (Eliquis) 0 mg PO BID [facility] Last Admin: 05/10/20 08:19 Dose: 5 mg Documented by: Clopidogrel Bisulfate (Plavix) 75 mg PO DAILY [facility] Last Admin: 05/09/20 20:35 Dose: Not Given Documented by: Furosemide (Lasix) 20 mg PO DAILY [facility] Last Admin: 05/10/20 08:21 Dose: Not Given Documented by: Sodium Chloride (Normal Saline) 1,000 mls @ 125 mls/hr IV ASDIRECTED [facility] Last Admin: 05/10/20 07:04 Dose: 125 mls/hr Documented by: Magnesium Sulfate/Dextrose 1 (gm/ Premix) 100 mls @ 100 mls/hr IV ONETIME ONE Stop: 05/10/20 09:44 Last Admin: 05/10/20 09:55 Dose: 100 mls/hr Documented by: Lorazepam (Ativan) 1 mg IVPUSH ONETIME ONE Stop: 05/09/20 19:09 Last Admin: 05/09/20 19:31 Dose: 1 mg Documented by: Carbamazepine [ Tegretol Xr] 100 Mg Cap Ptom 0 mg PO BID [facility] Last Admin: 05/10/20 08:19 Dose: 100 mg Documented by: Carbamazepine [ Tegretol Xr] 200 Mg Tab Ptom 0 mg PO BID [facility] Last Admin: 05/10/20 08:20 Dose: 200 mg Documented by: Non-Formulary Medication (Clonazepam [Clonazepam]) 0.25 mg PO BID [facility] Last Admin: 05/09/20 20:35 Dose: Not Given Documented by: Losartan 50mg Tab (Ptom) 0 each PO BID [facility] Last Admin: 05/10/20 08:18 Dose: 1 each Documented by: Omeprazole [Prilosec (] 20 Mg Tab Ptom) 0 mg PO ACBREAKFAST [facility] Last Admin: 05/10/20 06:22 Dose: 20 mg Documented by: Paroxetine Hcl 20 Mg (Tab Ptom) 0 mg PO BEDTIME [facility] Last Admin: 05/09/20 19:38 Dose: 20 mg Documented by: Ondansetron HCl (Zofran) 4 mg IVPUSH Q6H PRN PRN Reason: Nausea Last Admin: 05/09/20 10:10 Dose: 4 mg Documented by: Ondansetron HCl (Zofran Odt) 4 mg PO Q4H PRN PRN Reason: nausea, able to take PO Ondansetron HCl (Zofran Odt) 4 mg PO Q4H PRN PRN Reason: nausea, able to take PO Sitagliptin *Pt Own (Med*) 0 each PO DAILY [facility] Last Admin: 05/10/20 08:18 Dose: 1 each Documented by: Tamsulosin HCl (Flomax) 0 mg PO BEDTIME [facility] Last Admin: 05/09/20 19:35 Dose: 0.4 mg Documented by: - Exam General: Reports: Alert, Oriented, Cooperative, No Acute Distress Neck: Reports: Supple Lungs: Reports: Clear to Auscultation, Normal Respiratory Effort Cardiovascular: Reports: Regular Rate, Regular Rhythm GI/Abdominal Exam: Normal Bowel Sounds, Soft, Non-Tender, No Organomegaly, No Distention, No Mass Skin: Reports: Warm, Dry, Intact Psy/Mental Status: Reports: Alert, Normal Affect, Normal Mood
== END 2020-05-10 11:54 | disposition home or self-care (01) ==
LOC: CC.ED 05:38 → CC.MS 06:47 → UNDOADMOB 07:05
PROVIDERS: ADMIT Physician Assistant Medical; ATTEND Family Medicine
DX: R55 Syncope and collapse (principal); U07.1 COVID-19; E87.1 Hypo-osmolality and hyponatremia; I48.91 Unspecified atrial fibrillation; K21.9 Gastro-esophageal reflux disease without esophagitis; N40.0 Benign prostatic hyperplasia without lower urinary tract symptoms; E66.9 Obesity, unspecified; E78.00 Pure hypercholesterolemia, unspecified; Z88.0 Allergy status to penicillin; Z95.0 Presence of cardiac pacemaker; Z88.1 Allergy status to other antibiotic agents; Z79.899 Other long term (current) drug therapy; Z68.33 Body mass index [BMI] 33.0-33.9, adult
CPT/HCPCS: 36415; 71046; 80053; 81001; 82962; 83605; 83735; 84484; 85025; 85379; 86140; 93005; 93010; 96365; 96374; 96375; 99217; 99220; 99285-25; A9270-GY; G0378; J2060; J2405; J3475; J7030

== ENCOUNTER 2020-05-16 08:01 | Emergency (ER) | payer MEDICARE, OTHER ==
[2020-05-16 08:06] VITALS: BP 159/93; PULSE 76
[2020-05-16] MEDS ORDERED: Ondansetron 4 MG/2 ML SDV IVPUSH ONE (10:52)
--- NOTE | 2020-05-16 10:57 | EDM.PDOC ---
ED HPI GENERAL MEDICAL PROBLEM - General Chief Complaint: Abdominal Pain Stated Complaint: Stomach hurts Time Seen by Provider: 05/16/20 08:40 Source of Information: Reports: Patient History Limitations: Reports: No Limitations - History of Present Illness INITIAL COMMENTS - FREE TEXT/NARRATIVE: Marty is a 75 year old male who presents to ER with complaints of constipation. Has not had a BM in 4-5 days. Did try mineral oil and Maalox at home and another product he bought at the store. No results. Is now nauseated, no vomiting. Did have covid recently with diarrhea, hasn't had normal BMs since. Has been eating. States has discomfort in lower quadrants at times when trying to have a stool. Does admit to feeling weak and tired yet from his COVID. Denies any fevers. No black or tarry stools. No urinary complaints Onset: Gradual Duration: Day(s): Location: Reports: Abdomen Quality: Reports: Ache Severity: Mild Associated Symptoms: Reports: Nausea/Vomiting. Denies: Confusion, Chest Pain, Cough, Fever/Chills, Loss of Appetite, Shortness of Breath Middle Abdomen Pain Score (Numeric/FACES): 9 - Related Data Allergies Allergy/AdvReac Type Severity Reaction Status Date / Time clarithromycin [From Biaxin] Allergy Rash Verified 05/16/20 08:09 doxycycline Allergy Rash Verified 05/16/20 08:09 Penicillins Allergy Rash Verified 05/16/20 08:09 Home Meds: Home Meds Omeprazole [Prilosec] 20 mg PO DAILY 05/01/13 [History] Tamsulosin HCl 0.4 mg PO DAILY 03/11/15 [History] Apixaban [Eliquis] 5 mg PO BID 05/28/17 [History] Losartan Potassium 25 mg PO BID 07/07/19 [History] Clopidogrel [Plavix] 75 mg PO DAILY 10/23/19 [History] Furosemide [Lasix] 40 mg PO ASDIRECTED 10/28/19 [History] PARoxetine HCL [Paroxetine HCl] 40 mg PO DAILY 10/28/19 [History] carBAMazepine [TEGretol XR] 100 mg PO BID 10/28/19 [History] carBAMazepine [TEGretol XR] 200 mg PO BID 10/28/19 [History] Ondansetron [Zofran ODT] 4 mg PO Q6H PRN 05/09/20 [History] clonazePAM [Clonazepam] 0.25 mg PO BID 05/09/20 [History] sitaGLIPtin Phosphate [Januvia] 50 mg PO DAILY 05/09/20 [History] Past Medical History HEENT History: Reports: Allergic Rhinitis Other HEENT History: GLASSES Cardiovascular History: Reports: Afib, Arrhythmia, Heart Murmur, Pacemaker, SOB on Exertion Respiratory History: Reports: None Gastrointestinal History: Reports: GERD Genitourinary History: Reports: BPH Other Genitourinary History: OVERACTIVE BLADDER Musculoskeletal History: Reports: Arthritis Neurological History: Reports: Seizure Psychiatric History: Reports: Depression, Suicide Attempt Endocrine/Metabolic History: Reports: Obesity/BMI 30+ Hematologic History: Reports: Anticoagulation Therapy - Past Surgical History Head Surgeries/Procedures: Reports: None HEENT Surgical History: Reports: None Cardiovascular Surgical History: Reports: Cardiac Ablation, Pacer, Other (See Below) Other Cardiovascular Surgeries/Procedures: heart valve placed Respiratory Surgical History: Reports: None GI Surgical History: Reports: Colonoscopy Musculoskeletal Surgical History: Reports: Knee Replacement Social & Family History - Family History Family Medical History: No Pertinent Family History Cardiac: Reports: High Cholesterol, Hypertension - Tobacco Use Tobacco Use Status *Q: Former Tobacco User Used Tobacco, but Quit: Yes Month/Year Tobacco Last Used: 1999 - Caffeine Use Caffeine Use: Reports: None - Recreational Drug Use Recreational Drug Use: No - Living Situation & Occupation Living situation: Reports: , Alone Occupation: Retired ED ROS GENERAL - Review of Systems Review Of Systems: See Below Constitutional: Reports: Weakness, Fatigue. Denies: Fever, Chills, Malaise, Decreased Appetite HEENT: Reports: No Symptoms Respiratory: Denies: Shortness of Breath, Cough Cardiovascular: Denies: Chest Pain, Edema, Lightheadedness Endocrine: Denies: Fatigue GI/Abdominal: Reports: Abdominal Pain, Constipation, Nausea. Denies: Vomiting : Reports: No Symptoms Musculoskeletal: Reports: No Symptoms Skin: Reports: No Symptoms Neurological: Reports: No Symptoms ED EXAM, GI/ABD - Physical Exam Exam: See Below Exam Limited By: No Limitations General Appearance: Alert, WD/WN, No Apparent Distress Ears: Normal External Exam, Normal TMs Nose: Normal Inspection, Normal Mucosa, No Blood Throat/Mouth: Normal Inspection, Normal Oropharynx Head: Normocephalic Neck: Normal Inspection, Supple, Non-Tender Respiratory/Chest: No Respiratory Distress, Lungs Clear, Normal Breath Sounds Cardiovascular: Regular Rate, Rhythm GI/Abdominal Exam: Normal Bowel Sounds, Soft, Tender (lower quadrants) Extremities: Normal Inspection, No Pedal Edema Neurological: Alert, Oriented Course - Vital Signs Last Recorded V/S: Last Vital Signs Temp 97.3 F 05/16/20 08:02 Pulse 76 05/16/20 08:02 Resp 20 05/16/20 08:02 BP 159/93 H 05/16/20 08:02 Pulse Ox 99 05/16/20 08:02 - Orders/Labs/Meds Orders: Active Orders 24 hr Category Date Time Status Abdomen 2V AP Flat Upright [CR] Stat Exams 05/16/20 08:22 Taken Meds: Medications Discontinued Medications Generic Name Dose Route Start Last Admin Trade Name Moq PRN Reason Stop Dose Admin Bisacodyl 10 mg 05/16/20 10:52 05/16/20 11:20 Dulcolax RECTAL 05/16/20 10:53 10 mg ONETIME ONE Administration Ondansetron HCl 4 mg 05/16/20 10:52 Zofran IVPUSH 05/16/20 10:53 NOW ONE Ondansetron HCl 4 mg 05/16/20 11:11 05/16/20 11:19 Zofran IM 05/16/20 11:12 4 mg STAT STA Administration - Re-Assessments/Exams Free Text/Narrative Re-Assessment/Exam: 05/16/20 10:58 patient has been given a fleets enema with small results of hard stool. Soap suds enema did not produce results. Does not want further enemas but feels more should be done prior to being discharged home. Will give zofran as is now more nauseated and try dulcolax suppository. 05/16/20 12:00 No results from the suppository but is feeling good. Will have patient take mag citrate at home, start Miralax tomorrow. Advised to follow up if any persisting issues. Departure - Departure Time of Disposition: 12:01 Disposition: Home, Self-Care 01 Condition: Good Clinical Impression: Constipation - Discharge Information *PRESCRIPTION DRUG MONITORING PROGRAM REVIEWED*: No *COPY OF PRESCRIPTION DRUG MONITORING REPORT IN PATIENT ROBIN: No Instructions: Constipation, Adult Referrals: Zheng Garrett MD [Primary Care Provider] - Forms: ED Department Discharge Additional Instructions: 1. Push fluids 2. Take 1/2 bottle of mag citrate when get home, other 1/2 later today if needed 3. Start Miralax daily, may need to use more than one scoop to get cleaned out. Reduce amount once more regular 4. Follow up if develop pain, vomiting or further concern Sepsis Event Note (ED) - Evaluation Sepsis Screening Result: No Definite Risk - Focused Exam Vital Signs: Vital Signs Temp Pulse Resp BP Pulse Ox 05/16/20 08:02 97.3 F 76 20 159/93 H 99 - My Orders Last 24 Hours: My Active Orders 05/16/20 08:22 Abdomen 2V AP Flat Upright [CR] Stat - Assessment/Plan Last 24 Hours: My Active Orders 05/16/20 08:22 Abdomen 2V AP Flat Upright [CR] Stat
[2020-05-16] MEDS: Ondansetron 4 MG/2 ML SDV IM STA (11:19)
[2020-05-16] MEDS: Bisacodyl 10 MG Supp RECTAL ONE (11:20)
[2020-05-16] MEDS ORDERED: Magnesium Citrate Solution 296 ML Bottle PO ONE (12:02)
== END 2020-05-16 12:16 | disposition home or self-care (01) ==
LOC: CC.ED 08:01
DX: K59.00 Constipation, unspecified (principal); I48.91 Unspecified atrial fibrillation; K21.9 Gastro-esophageal reflux disease without esophagitis; N40.0 Benign prostatic hyperplasia without lower urinary tract symptoms; R56.9 Unspecified convulsions; E66.9 Obesity, unspecified; Z68.35 Body mass index [BMI] 35.0-35.9, adult; Z88.1 Allergy status to other antibiotic agents; Z88.0 Allergy status to penicillin; Z79.01 Long term (current) use of anticoagulants; Z79.02 Long term (current) use of antithrombotics/antiplatelets; Z79.899 Other long term (current) drug therapy
CPT/HCPCS: 74019; 96372; 99283; A9270-GY; J2405

== ENCOUNTER 2020-05-16 19:56 | Observation (INO) | payer MEDICARE, OTHER ==
--- NOTE | 2020-05-16 20:35 | EDM.PDOC ---
ED HPI GENERAL MEDICAL PROBLEM - General Chief Complaint: General Stated Complaint: abd pain Time Seen by Provider: 05/16/20 20:20 Source of Information: Reports: Patient History Limitations: Reports: No Limitations - History of Present Illness INITIAL COMMENTS - FREE TEXT/NARRATIVE: Marty is a 75 year old who returns to the ER today now with increased abdominal "soreness". Was here this am with complaints of constipation and nausea. Was given enema and dulcolax with small results. Drank 1/2 bottle of mag citrate at home and has now had good results. States now abdomen is even more sore with mild nausea. No fevers. No vomiting. No blood in his stools. States abdomen "just hurts all over now". Had covid with out of isolation on . continues to feel weak and lethargic yet from that. Onset: Today, Gradual Duration: Hour(s):, Getting Worse Location: Reports: Abdomen Quality: Reports: Ache Severity: Moderate Associated Symptoms: Reports: Nausea/Vomiting. Denies: Confusion, Chest Pain, Cough, Fever/Chills, Loss of Appetite, Shortness of Breath Treatments [employer]: Reports: Other (see below) Other Treatments [employer]: mag citrate Middle Abdominal Pain Score (Numeric/FACES): 10 - Related Data Allergies Allergy/AdvReac Type Severity Reaction Status Date / Time clarithromycin [From Biaxin] Allergy Rash Verified 05/16/20 21:08 doxycycline Allergy Rash Verified 05/16/20 21:08 Penicillins Allergy Rash Verified 05/16/20 21:08 Home Meds: Home Meds Omeprazole [Prilosec] 20 mg PO DAILY 05/01/13 [History] Tamsulosin HCl 0.4 mg PO DAILY 03/11/15 [History] Apixaban [Eliquis] 5 mg PO BID 05/28/17 [History] Losartan Potassium 50 mg PO BID 07/07/19 [History] Clopidogrel [Plavix] 75 mg PO DAILY 10/23/19 [History] Furosemide [Lasix] 40 mg PO ASDIRECTED 10/28/19 [History] PARoxetine HCL [Paroxetine HCl] 20 mg PO DAILY 10/28/19 [History] carBAMazepine [TEGretol XR] 100 mg PO BID 10/28/19 [History] carBAMazepine [TEGretol XR] 200 mg PO BID 10/28/19 [History] Ondansetron [Zofran ODT] 4 mg PO Q6H PRN 05/09/20 [History] clonazePAM [Clonazepam] 0.25 mg PO BID 05/09/20 [History] sitaGLIPtin Phosphate [Januvia] 50 mg PO DAILY 05/09/20 [History] Past Medical History HEENT History: Reports: Allergic Rhinitis Other HEENT History: GLASSES Cardiovascular History: Reports: Afib, Arrhythmia, Heart Murmur, Pacemaker, SOB on Exertion Respiratory History: Reports: None Gastrointestinal History: Reports: GERD Genitourinary History: Reports: BPH Other Genitourinary History: OVERACTIVE BLADDER Musculoskeletal History: Reports: Arthritis Neurological History: Reports: Seizure Psychiatric History: Reports: Depression, Suicide Attempt Endocrine/Metabolic History: Reports: Obesity/BMI 30+ Hematologic History: Reports: Anticoagulation Therapy - Past Surgical History Head Surgeries/Procedures: Reports: None HEENT Surgical History: Reports: None Cardiovascular Surgical History: Reports: Cardiac Ablation, Pacer, Other (See Below) Other Cardiovascular Surgeries/Procedures: heart valve placed Respiratory Surgical History: Reports: None GI Surgical History: Reports: Colonoscopy Musculoskeletal Surgical History: Reports: Knee Replacement Social & Family History - Family History Family Medical History: No Pertinent Family History Cardiac: Reports: High Cholesterol, Hypertension - Tobacco Use Tobacco Use Status *Q: Never Tobacco User Second Hand Smoke Exposure: No - Caffeine Use Caffeine Use: Reports: None - Living Situation & Occupation Living situation: Reports: , Alone Occupation: Retired ED ROS GENERAL - Review of Systems Review Of Systems: See Below Constitutional: Reports: Weakness, Fatigue. Denies: Fever, Chills, Malaise, Decreased Appetite HEENT: Denies: Ear Pain, Throat Pain, Other Respiratory: Denies: Shortness of Breath, Cough Cardiovascular: Denies: Chest Pain, Edema, Lightheadedness Endocrine: Denies: Fatigue GI/Abdominal: Reports: Abdominal Pain, Constipation, Nausea. Denies: Vomiting : Reports: No Symptoms Musculoskeletal: Reports: No Symptoms Skin: Reports: No Symptoms Neurological: Reports: No Symptoms ED EXAM, GENERAL - Physical Exam Exam: See Below Exam Limited By: No Limitations General Appearance: Alert, WD/WN, No Apparent Distress Ears: Normal External Exam, Normal TMs Nose: Normal Inspection, Normal Mucosa, No Blood Throat/Mouth: Normal Inspection, Normal Oropharynx Head: Normocephalic Neck: Normal Inspection, Supple, Non-Tender Respiratory/Chest: No Respiratory Distress, Lungs Clear, Normal Breath Sounds Cardiovascular: Regular Rate, Rhythm GI/Abdominal: Normal Bowel Sounds, Soft, Tender (diffusely throughout) Extremities: Normal Inspection, No Pedal Edema Neurological: Alert, Oriented Skin Exam: Warm, Dry Course - Vital Signs Last Recorded V/S: Last Vital Signs Temp 98.4 F 05/17/20 16:00 Pulse 86 05/17/20 16:00 Resp 18 05/17/20 16:00 BP 116/68 05/17/20 16:00 Pulse Ox 98 05/17/20 16:00 - Orders/Labs/Meds Orders: Active Orders 24 hr Category Date Time Status Abdomen Pelvis w Cont [CT] Stat Exams 05/16/20 20:49 Taken Chest w Cont [CT] Stat Exams 05/16/20 21:30 Taken Sodium Chloride 0.9% [Normal Saline] 1,000 ml Med 05/16/20 21:45 Active IV ASDIRECTED Medication Orders Acetaminophen (Tylenol) 650 mg PO Q4H PRN PRN Reason: Pain (Mild 1-3)/fever Last Admin: 05/17/20 17:09 Dose: 650 mg Documented by: BRENDA Apixaban (Eliquis) 5 mg PO BID [facility] Last Admin: 05/17/20 09:50 Dose: 5 mg Documented by: SYED Furosemide (Lasix) 20 mg PO ASDIRECTED PRN PRN Reason: Edema Sodium Chloride (Normal Saline) 1,000 mls @ 125 mls/hr IV ASDIRECTED [facility] Last Admin: 05/16/20 22:10 Dose: 125 mls/hr Documented by: DARLENE Carbamazepine [ Tegretol Xr] 100 Mg Ptom 0 mg PO BID [facility] Last Admin: 05/17/20 09:49 Dose: 100 mg Documented by: SYED Carbamazepine [ Tegretol Xr] 200 Mg Ptom 0 mg PO BID [facility] Last Admin: 05/17/20 09:50 Dose: 200 mg Documented by: SYED Losartan 50mg Tab (Ptom) 0 each PO BID [facility] Last Admin: 05/17/20 09:50 Dose: 1 each Documented by: SYED Pantoprazole 40mg (Tab Ptom) 0 mg PO ACBREAKFAST [facility] Last Admin: 05/17/20 09:52 Dose: 40 mg Documented by: SYED Sitagliptin Phosphate [Januvia] 50 Mg Ptom 0 mg PO DAILY [facility] Last Admin: 05/17/20 09:51 Dose: 50 mg Documented by: SYED Ondansetron HCl (Zofran Odt) 4 mg PO Q6H PRN PRN Reason: Nausea Last Admin: 05/17/20 18:10 Dose: 4 mg Documented by: BRENDA Ondansetron HCl (Zofran Odt) 4 mg PO Q4H PRN PRN Reason: nausea, able to take PO Ondansetron HCl (Zofran) 4 mg IV Q4H PRN PRN Reason: Nausea/Vomiting Pantoprazole Sodium (Protonix Iv) 40 mg IVPUSH Q24H [facility] Last Admin: 05/17/20 09:41 Dose: 40 mg Documented by: SYED Paroxetine HCl (Paxil) 40 mg PO BEDTIME [facility] Sodium Chloride (Saline Flush) 10 ml FLUSH ASDIRECTED PRN PRN Reason: Keep Vein Open Tamsulosin HCl (Flomax) 0.4 mg PO BEDTIME OWEN Temazepam (Restoril) 15 mg PO BEDTIME PRN PRN Reason: Sleep Labs: Laboratory Tests 05/16/20 05/16/20 05/16/20 Range/Units 20:15 20:18 20:18 WBC 7.5 (5.0-10.0) 10^3/uL RBC 4.70 (4.50-6.00) 10^6/uL Hgb 14.5 (14.0-18.0) g/dL Hct 40.5 (40.0-54.0) % MCV 86.2 (82.0-94.0) fL MCH 30.9 (27.0-32.0) pg MCHC 35.8 (33.0-38.0) g/dL RDW Coeff of Helen 12.9 (11.0-15.0) % Plt Count 235 (150-400) 10^3/uL Neut % (Auto) 72.5 (35-85) % Lymph % (Auto) 15.4 (10-55) % [place] % (Auto) 10.7 (0-16) % Eos % (Auto) 1.3 (0-5) % Baso % (Auto) 0.1 (0-3) % Neut # (Auto) 5.44 (1.80-7.00) 10^3/uL Lymph # (Auto) 1.16 (1.00-4.80) 10^3/uL [place] # (Auto) 0.80 (0.00-0.80) 10^3/uL Eos # (Auto) 0.10 (0.00-0.45) 10^3/uL Baso # (Auto) 0.01 10^3/uL Sodium 124 L* (136-145) mEq/L Potassium 4.4 (3.5-5.0) mEq/L Chloride 89 L (98-106) mEq/L Carbon Dioxide 26 (21-32) mmol/L BUN 13 (7-18) mg/dL Creatinine 1.0 (0.7-1.3) mg/dL Est Cr Clr Drug Dosing 71.13 mL/min Estimated GFR (MDRD) > 60 (>=60) mL/min Glucose 141 H (75-99) mg/dL Calcium 9.0 (8.4-10.1) mg/dL Total Bilirubin 0.5 (0.0-1.0) mg/dL AST 27 (15-37) U/L ALT 25 (12-78) U/L Alkaline Phosphatase 139 H (46-116) U/L C-Reactive Protein 1.0 H (0.2-0.8) mg/dL Total Protein 8.0 (6.4-8.2) g/dL Albumin 3.4 (3.4-5.0) g/dL Amylase 67 (25-115) U/L Lipase 202 (73-393) U/L Urine Color Yellow (YELLOW) Urine Appearance Clear (CLEAR) Urine pH 7.0 (4.5-8.0) Ur Specific [place] 1.020 (1.003-1.020) Urine Protein 30 H (NEGATIVE) mg/dL Urine Glucose (UA) Negative (NEGATIVE) mg/dL Urine Ketones Negative (NEGATIVE) mg/dL Urine Occult Blood Negative (NEGATIVE) Urine Nitrite Negative (NEGATIVE) Urine Bilirubin Negative (NEGATIVE) Urine Urobilinogen 0.2 (0.2-1.0) EU/dL Ur Leukocyte Esterase Negative (NEGATIVE) Urine RBC Not seen (0-5) /HPF Urine WBC Not seen (0-5) /HPF Ur Epithelial Cells Occasional H (NOT SEEN) /HPF Urine Mucus Few H (NOT SEEN) /HPF Meds: Medications Generic Name Dose Route Start Last Admin Trade Name Freq PRN Reason Stop Dose Admin Acetaminophen 650 mg 05/16/20 22:30 05/17/20 17:09 Tylenol PO 650 mg Q4H PRN Administration Pain (Mild 1-3)/fever Apixaban 5 mg 05/17/20 09:45 05/17/20 09:50 Eliquis PO 5 mg BID OWEN Administration Furosemide 20 mg 05/16/20 22:15 Lasix PO ASDIRECTED PRN Edema Sodium Chloride 1,000 mls @ 125 mls/hr 05/16/20 21:45 05/16/20 22:10 Normal Saline IV 125 mls/hr ASDIRECTED OWEN Administration Carbamazepine [ 0 mg 05/17/20 09:30 05/17/20 09:49 Tegretol Xr] 100 Mg PO 100 mg Ptom BID OWEN Administration Carbamazepine [ 0 mg 05/17/20 09:45 05/17/20 09:50 Tegretol Xr] 200 Mg PO 200 mg Ptom BID OWEN Administration Losartan 50mg Tab 0 each 05/17/20 09:45 05/17/20 09:50 Ptom PO 1 each BID OWEN Administration Pantoprazole 40mg 0 mg 05/17/20 09:45 05/17/20 09:52 Tab Ptom PO 40 mg ACBREAKFAST OWEN Administration Sitagliptin 0 mg 05/17/20 09:45 05/17/20 09:51 Phosphate [Januvia] PO 50 mg 50 Mg Ptom DAILY OWEN Administration Ondansetron HCl 4 mg 05/16/20 22:04 05/17/20 18:10 Zofran Odt PO 4 mg Q6H PRN Administration Nausea Ondansetron HCl 4 mg 05/16/20 22:30 Zofran Odt PO Q4H PRN nausea, able to take PO Ondansetron HCl 4 mg 05/16/20 22:30 Zofran IV Q4H PRN Nausea/Vomiting Pantoprazole Sodium 40 mg 05/17/20 09:30 05/17/20 09:41 Protonix Iv IVPUSH 40 mg Q24H OWEN Administration Paroxetine HCl 40 mg 05/18/20 20:00 Paxil PO BEDTIME [facility] Sodium Chloride 10 ml 05/16/20 22:30 Saline Flush FLUSH ASDIRECTED PRN Keep Vein Open Tamsulosin HCl 0.4 mg 05/17/20 20:00 Flomax PO BEDTIME OWEN Temazepam 15 mg 05/16/20 22:30 Restoril PO BEDTIME PRN Sleep Discontinued Medications Generic Name Dose Route Start Last Admin Trade Name Freq PRN Reason Stop Dose Admin Clonazepam 0.25 mg 05/17/20 11:01 05/17/20 11:32 Klonopin PO 05/17/20 11:02 Not Given ONETIME ONE Clonazepam 0.25 mg 05/17/20 11:30 05/17/20 11:25 Klonopin PO 05/17/20 11:31 0.25 mg ONETIME ONE Administration Clopidogrel Bisulfate 75 mg 05/17/20 08:00 05/17/20 11:29 Plavix PO Not Given DAILY [facility] Fentanyl 25 mcg 05/16/20 22:19 Fentanyl IVPUSH Q4H PRN Pain Iopamidol 100 ml 05/16/20 21:04 05/16/20 21:33 Isovue-370 (76%) IVPUSH 05/16/20 21:05 100 ml ONETIME ONE Administration Non-Formulary Medication 0.25 mg 05/17/20 08:00 05/17/20 11:29 Clonazepam [Clonazepam] PO Not Given BID [facility] Paroxetine HCl 40 mg 05/17/20 11:15 05/17/20 11:22 Paxil PO 05/17/20 11:16 40 mg ONETIME ONE Administration - Re-Assessments/Exams Free Text/Narrative Re-Assessment/Exam: 05/16/20 05/16/205 Labs reviewed. All essentially normal except sodium low again at 124, unsure if related to use of magnesium citrate today as had history of same concern last weekend with covid. Will obtain CT scan of chest, abdomen and pelvis due to persisting pain without identifiable cause. Admit to observation for sodium replacement. Departure - Departure Time of Disposition: 22:30 Disposition: Refer to Observation Condition: Fair Clinical Impression: Hyponatremia, Abdominal pain, epigastric - Discharge Information *PRESCRIPTION DRUG MONITORING PROGRAM REVIEWED*: No *COPY OF PRESCRIPTION DRUG MONITORING REPORT IN PATIENT ROBIN: No Sepsis Event Note (ED) - Evaluation Sepsis Screening Result: No Definite Risk - Problem List & Annotations (1) Abdominal pain, epigastric SNOMED Code(s): 32705806 Code(s): R10.13 - EPIGASTRIC PAIN Status: Acute Priority: High Current Visit: Yes (2) Hyponatremia SNOMED Code(s): 82874204 Code(s): E87.1 - HYPO-OSMOLALITY AND HYPONATREMIA Status: Acute Priority: High Current Visit: Yes - Problem List Review Problem List Initiated/Reviewed/Updated: Yes - My Orders Last 24 Hours: My Active Orders 05/16/20 20:49 Abdomen Pelvis w Cont [CT] Stat 05/16/20 21:30 Chest w Cont [CT] Stat 05/16/20 21:45 Sodium Chloride 0.9% [Normal Saline] 1,000 ml IV ASDIRECTED - Assessment/Plan Admission H&P: Please use this note as an admission H&P Last 24 Hours: My Active Orders 05/16/20 20:49 Abdomen Pelvis w Cont [CT] Stat 05/16/20 21:30 Chest w Cont [CT] Stat 05/16/20 21:45 Sodium Chloride 0.9% [Normal Saline] 1,000 ml IV ASDIRECTED Assessment:: Hyponatremia ABdominal pain Plan: Admit to observation. IV normal saline. Await CT report for any further intervention
[2020-05-16 20:45] LABS: CHLORIDE,CL 89 mEq/L (98-106); SODIUM,NA 124 mEq/L (136-145)
[2020-05-16] MEDS ORDERED: Iopamidol 755 Mg/ML 100 ML Bottle IVPUSH ONE (21:04)
[2020-05-16] MEDS ORDERED: Sodium Chloride 0.9% 1,000 ML IV SCH (21:45)
[2020-05-16] MEDS ORDERED: Ondansetron 4 MG Tab.DIS PO PRN ×2 (22:04→22:30)
[2020-05-16] MEDS ORDERED: Furosemide 40 MG Tab PO PRN (22:15)
[2020-05-16] MEDS ORDERED: fentaNYL 50 MCG/ML SDV IVPUSH PRN (22:19)
[2020-05-16] MEDS ORDERED: Acetaminophen 325 MG Tab PO PRN (22:30)
[2020-05-16] MEDS ORDERED: Ondansetron 4 MG/2 ML SDV IV PRN (22:30)
[2020-05-16] MEDS ORDERED: Sodium Chloride 0.9% 10 ML Syringe FLUSH PRN (22:30)
[2020-05-16] MEDS ORDERED: Temazepam 15 MG Cap PO PRN (22:30)
[2020-05-17 07:30] LABS: CHLORIDE,CL 94 mEq/L (98-106); SODIUM,NA 127 mEq/L (136-145)
[2020-05-17] MEDS ORDERED: Clopidogrel 75 MG Tab PO SCH (08:00)
[2020-05-17] MEDS ORDERED: CLONAZEPAM 0.25 MG PO SCH (08:00)
[2020-05-17] MEDS ORDERED: Pantoprazole 40 MG Vial IVPUSH SCH (09:30)
--- NOTE | 2020-05-17 09:33 | PCM.PN ---
- General Info Date of Service: 05/17/20 Subjective Update: Marty is a 75 yo male who was initially seen in the ED yesterday for constipation. Patient was given enemas and Magnesium Sulfate. Was discharged home and had a large bowel movement. Started to have some abdominal discomfort and returned to the ED. Patient was admitted for hyponatremia and abdominal pain. CT of the chest/abdomen/pelvis was negative last night for any acute findings. 05/17/2020 Marty is sleeping this morning. Upon waking up he admits to ongoing stomach pain. States his stomach hurts partially because he misses his . He did eat 1/2 of his breakfast. No vomiting but does admit to nausea. Has no other complaints. - Review of Systems General: Denies: Fever HEENT: Reports: No Symptoms Pulmonary: Reports: No Symptoms Cardiovascular: Reports: No Symptoms Gastrointestinal: Reports: Abdominal Pain. Denies: Constipation, Diarrhea, Nausea, Vomiting Genitourinary: Reports: No Symptoms Musculoskeletal: Reports: No Symptoms Skin: Reports: No Symptoms Neurological: Reports: No Symptoms Psychiatric: Reports: Depression - Patient Data Vitals - Most Recent: Last Vital Signs Temp 97.5 F 05/17/20 07:21 Pulse 77 05/17/20 07:21 Resp 18 05/17/20 07:21 BP 154/93 H 05/17/20 07:21 Pulse Ox 96 05/17/20 07:21 Weight - Most Recent: 261 lb 11.2 oz Lab Results Last 24 Hours: Laboratory Results - last 24 hr 05/16/20 05/16/20 05/16/20 Range/Units 20:15 20:18 20:18 WBC 7.5 (5.0-10.0) 10^3/uL RBC 4.70 (4.50-6.00) 10^6/uL Hgb 14.5 (14.0-18.0) g/dL Hct 40.5 (40.0-54.0) % MCV 86.2 (82.0-94.0) fL MCH 30.9 (27.0-32.0) pg MCHC 35.8 (33.0-38.0) g/dL RDW Coeff of [place] 12.9 (11.0-15.0) % Plt Count 235 (150-400) 10^3/uL Neut % (Auto) 72.5 (35-85) % Lymph % (Auto) 15.4 (10-55) % [place] % (Auto) 10.7 (0-16) % Eos % (Auto) 1.3 (0-5) % Baso % (Auto) 0.1 (0-3) % Neut # (Auto) 5.44 (1.80-7.00) 10^3/uL Lymph # (Auto) 1.16 (1.00-4.80) 10^3/uL [place] # (Auto) 0.80 (0.00-0.80) 10^3/uL Eos # (Auto) 0.10 (0.00-0.45) 10^3/uL Baso # (Auto) 0.01 10^3/uL Sodium 124 L* (136-145) mEq/L Potassium 4.4 (3.5-5.0) mEq/L Chloride 89 L (98-106) mEq/L Carbon Dioxide 26 (21-32) mmol/L BUN 13 (7-18) mg/dL Creatinine 1.0 (0.7-1.3) mg/dL Est Cr Clr Drug Dosing 71.13 mL/min Estimated GFR (MDRD) > 60 (>=60) mL/min Glucose 141 H (75-99) mg/dL Calcium 9.0 (8.4-10.1) mg/dL Total Bilirubin 0.5 (0.0-1.0) mg/dL AST 27 (15-37) U/L ALT 25 (12-78) U/L Alkaline Phosphatase 139 H (46-116) U/L C-Reactive Protein 1.0 H (0.2-0.8) mg/dL Total Protein 8.0 (6.4-8.2) g/dL Albumin 3.4 (3.4-5.0) g/dL Amylase 67 (25-115) U/L Lipase 202 (73-393) U/L Urine Color Yellow (YELLOW) Urine Appearance Clear (CLEAR) Urine pH 7.0 (4.5-8.0) Ur Specific [place] 1.020 (1.003-1.020) Urine Protein 30 H (NEGATIVE) mg/dL Urine Glucose (UA) Negative (NEGATIVE) mg/dL Urine Ketones Negative (NEGATIVE) mg/dL Urine Occult Blood Negative (NEGATIVE) Urine Nitrite Negative (NEGATIVE) Urine Bilirubin Negative (NEGATIVE) Urine Urobilinogen 0.2 (0.2-1.0) EU/dL Ur Leukocyte Esterase Negative (NEGATIVE) Urine RBC Not seen (0-5) /HPF Urine WBC Not seen (0-5) /HPF Ur Epithelial Cells Occasional H (NOT SEEN) /HPF Urine Mucus Few H (NOT SEEN) /HPF 05/17/20 05/17/20 Range/Units 06:45 06:45 WBC 5.3 (5.0-10.0) 10^3/uL RBC 4.29 L (4.50-6.00) 10^6/uL Hgb 13.2 L (14.0-18.0) g/dL Hct 37.7 L (40.0-54.0) % MCV 87.9 (82.0-94.0) fL MCH 30.8 (27.0-32.0) pg MCHC 35.0 (33.0-38.0) g/dL RDW Coeff of [place] 12.9 (11.0-15.0) % Plt Count 224 (150-400) 10^3/uL Neut % (Auto) 70.2 (35-85) % Lymph % (Auto) 15.0 (10-55) % [place] % (Auto) 12.7 (0-16) % Eos % (Auto) 1.9 (0-5) % Baso % (Auto) 0.2 (0-3) % Neut # (Auto) 3.70 (1.80-7.00) 10^3/uL Lymph # (Auto) 0.79 L (1.00-4.80) 10^3/uL [place] # (Auto) 0.67 (0.00-0.80) 10^3/uL Eos # (Auto) 0.10 (0.00-0.45) 10^3/uL Baso # (Auto) 0.01 10^3/uL Sodium 127 L (136-145) mEq/L Potassium 4.7 (3.5-5.0) mEq/L Chloride 94 L (98-106) mEq/L Carbon Dioxide 27 (21-32) mmol/L BUN 10 (7-18) mg/dL Creatinine 0.8 (0.7-1.3) mg/dL Est Cr Clr Drug Dosing 88.92 mL/min Estimated GFR (MDRD) > 60 (>=60) mL/min Glucose 124 H (75-99) mg/dL Calcium 8.4 (8.4-10.1) mg/dL Total Bilirubin (0.0-1.0) mg/dL AST (15-37) U/L ALT (12-78) U/L Alkaline Phosphatase (46-116) U/L C-Reactive Protein 0.7 (0.2-0.8) mg/dL Total Protein (6.4-8.2) g/dL Albumin (3.4-5.0) g/dL Amylase (25-115) U/L Lipase (73-393) U/L Urine Color (YELLOW) Urine Appearance (CLEAR) Urine pH (4.5-8.0) Ur Specific [place] (1.003-1.020) Urine Protein (NEGATIVE) mg/dL Urine Glucose (UA) (NEGATIVE) mg/dL Urine Ketones (NEGATIVE) mg/dL Urine Occult Blood (NEGATIVE) Urine Nitrite (NEGATIVE) Urine Bilirubin (NEGATIVE) Urine Urobilinogen (0.2-1.0) EU/dL Ur Leukocyte Esterase (NEGATIVE) Urine RBC (0-5) /HPF Urine WBC (0-5) /HPF Ur Epithelial Cells (NOT SEEN) /HPF Urine Mucus (NOT SEEN) /HPF Med Orders - Current: Current Medications Acetaminophen (Tylenol) 650 mg PO Q4H PRN PRN Reason: Pain (Mild 1-3)/fever Apixaban (Eliquis) 5 mg PO BID OWEN Clopidogrel Bisulfate (Plavix) 75 mg PO DAILY OWEN Fentanyl (Fentanyl) 25 mcg IVPUSH Q4H PRN PRN Reason: Pain Furosemide (Lasix) 40 mg PO ASDIRECTED OWEN Sodium Chloride (Normal Saline) 1,000 mls @ 125 mls/hr IV ASDIRECTED OWEN Last Admin: 05/16/20 22:10 Dose: 125 mls/hr Documented by: Losartan Potassium (Cozaar) 50 mg PO BID OWEN Non-Formulary Medication (Carbamazepine [Tegretol Xr]) 100 mg PO BID OWEN Non-Formulary Medication (Carbamazepine [Tegretol Xr]) 200 mg PO BID OWEN Non-Formulary Medication (Clonazepam [Clonazepam]) 0.25 mg PO BID OWEN Non-Formulary Medication (Omeprazole [Prilosec]) 20 mg PO DAILY OWEN Non-Formulary Medication (Paroxetine Hcl [Paroxetine Hcl]) 20 mg PO DAILY OWEN Non-Formulary Medication (Sitagliptin Phosphate [Januvia]) 50 mg PO DAILY OWEN Ondansetron HCl (Zofran Odt) 4 mg PO Q6H PRN PRN Reason: Nausea Ondansetron HCl (Zofran Odt) 4 mg PO Q4H PRN PRN Reason: nausea, able to take PO Ondansetron HCl (Zofran) 4 mg IV Q4H PRN PRN Reason: Nausea/Vomiting Pantoprazole Sodium (Protonix Iv) 40 mg IVPUSH Q24H [facility] Sodium Chloride (Saline Flush) 10 ml FLUSH ASDIRECTED PRN PRN Reason: Keep Vein Open Tamsulosin HCl (Flomax) 0.4 mg PO DAILY [facility] Temazepam (Restoril) 15 mg PO BEDTIME PRN PRN Reason: Sleep Discontinued Medications Iopamidol (Isovue-370 (76%)) 100 ml IVPUSH ONETIME ONE Stop: 05/16/20 21:05 Last Admin: 05/16/20 21:33 Dose: 100 ml Documented by: - Exam General: Alert, Oriented, Cooperative, No Acute Distress Lungs: Clear to Auscultation, Normal Respiratory Effort Cardiovascular: Regular Rate, Regular Rhythm GI/Abdominal Exam: Normal Bowel Sounds, Soft, No Organomegaly, No Mass, Tender (epigastric). No: Guarding Extremities: Normal Inspection, No Pedal Edema Skin: Warm, Dry, Intact Psy/Mental Status: Alert, Normal Affect, Normal Mood Sepsis Event Note - Evaluation Sepsis Screening Result: No Definite Risk - Focused Exam Vital Signs: Vital Signs Temp Pulse Resp BP Pulse Ox 05/17/20 07:21 97.5 F 77 18 154/93 H 96 05/17/20 04:00 84 05/16/20 23:58 98.1 F 75 18 122/63 96 05/16/20 22:30 97 F 73 18 130/72 97 - Problem List & Annotations (1) Abdominal pain, epigastric SNOMED Code(s): 29148376 Code(s): R10.13 - EPIGASTRIC PAIN Status: Acute Current Visit: Yes (2) Hyponatremia SNOMED Code(s): 25176575 Code(s): E87.1 - HYPO-OSMOLALITY AND HYPONATREMIA Status: Acute Priority: High Current Visit: No - Problem List Review Problem List Initiated/Reviewed/Updated: Yes - My Orders Last 24 Hours: My Active Orders 05/17/20 08:45 Pantoprazole [ProTONIX IV] 40 mg IVPUSH Q24H - Plan Plan:: 05/17/2020 Will start IV protonix today as patient is not currently taking PPI. Will see how he does this morning. Repeat laboratory work is unremarkable this morning. Will possibly plan for discharge this afternoon or in am. Will consult with Dr. Garrett in regards to Marty's condition as well.
[2020-05-17] MEDS: CARBAMAZEPINE 100 MG PO SCH ×2 (09:49→19:32)
[2020-05-17] MEDS: Apixaban 5 MG Tab **PTOM PO SCH ×2 (09:50→19:31)
[2020-05-17] MEDS: CARBAMAZEPINE 200 MG PO SCH ×2 (09:50→19:32)
[2020-05-17] MEDS: LOSARTAN 50 MG PO SCH ×2 (09:50→19:31)
[2020-05-17] MEDS: SITAGLIPTIN PHOSPHATE 50 MG PO SCH (09:51)
[2020-05-17] MEDS: PANTOPRAZOLE 40 MG PO SCH (09:52)
[2020-05-17] MEDS ORDERED: ClonazePAM 1 MG Tab PO ONE ×2 (11:01→11:30)
[2020-05-17] MEDS ORDERED: PARoxetine 20 MG Tab PO ONE (11:15)
[2020-05-17] MEDS ORDERED: Tamsulosin 0.4 MG Cap.ER **PTOM PO SCH (20:00)
--- NOTE | 2020-05-17 20:42 | PCM.CONSBH ---
Hx. Present Illness - - General Date of Service: 05/17/20 Admit Problem/Dx: Admission Diagnosis/Problem Admission Diagnosis/Problem Hyponatremia History of Depression Source of Information: Reports: Patient, RN Notes Reviewed - Related Data Allergies/Adverse Reactions: Allergies Allergy/AdvReac Type Severity Reaction Status Date / Time clarithromycin [From Biaxin] Allergy Rash Verified 05/16/20 21:08 doxycycline Allergy Rash Verified 05/16/20 21:08 Penicillins Allergy Rash Verified 05/16/20 21:08 Home Medications: Home Meds Omeprazole [Prilosec] 20 mg PO DAILY 05/01/13 [History] Tamsulosin HCl 0.4 mg PO DAILY 03/11/15 [History] Apixaban [Eliquis] 5 mg PO BID 05/28/17 [History] Losartan Potassium 50 mg PO BID 07/07/19 [History] Clopidogrel [Plavix] 75 mg PO DAILY 10/23/19 [History] Furosemide [Lasix] 40 mg PO ASDIRECTED 10/28/19 [History] PARoxetine HCL [Paroxetine HCl] 20 mg PO DAILY 10/28/19 [History] carBAMazepine [TEGretol XR] 100 mg PO BID 10/28/19 [History] carBAMazepine [TEGretol XR] 200 mg PO BID 10/28/19 [History] Ondansetron [Zofran ODT] 4 mg PO Q6H PRN 05/09/20 [History] clonazePAM [Clonazepam] 0.25 mg PO BID 05/09/20 [History] sitaGLIPtin Phosphate [Januvia] 50 mg PO DAILY 05/09/20 [History] Past Medical Hx - Other EENT Hx: GLASSES 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 Gastrointestinal Hx: Reports: GERD, Inflammatory Colon Polyps Other Hx: OVERACTIVE BLADDER Musculoskeletal Hx: Reports: Other (See Below) Neurological Hx: Reports: Migraines, Other (See Below) Psychiatric Hx: Reports: Anxiety, Depression Other Cardiovascular Surgical Hx: heart valve placed Social & Family History - - Living Situation & Occupation Occupation: Retired Review of Systems - - Review of Systems: Review Of Systems: See Below Psychiatric: Reports: Depression, Anxiety Exam - - Exam Exam: See Below - Vital Signs Vital Signs: Last Vital Signs Temp 36.6 C 05/17/20 19:38 Pulse 72 05/17/20 19:38 Resp 18 05/17/20 19:38 BP 122/58 L 05/17/20 19:38 Pulse Ox 97 05/17/20 19:38 - Exam General: Alert, Oriented Psychiatric: Alert, Anxious, Depressed (tearful) - [place] I, II, III (1) History of depression SNOMED Code(s): 539933393 ICD Code: Z86.59 - PERSONAL HISTORY OF OTHER MENTAL AND BEHAVIORAL DISORDERS Status: Chronic Current Visit: Yes Problem Details: Patient sitting up in recliner during consult. He is tearful at times. Patient has complaints of feeling nervous and that his head hurts from missing his , who about one year ago. He reports wanting to be with his . Patient denies having a plan or intent and states he just wants to feel better. The patient has been visiting with Father Lazaro however over the last couple weeks this has not occurred due to Marty recovering from Covid and Father Lazaro recovering form Covid. Patient does report a support system of Father Lazaro, other deaf interpreter friends, Jaxon, and Ramón. - Plan FREE TEXT/NARRATIVE: Patient will receive one time order of Clonazepam to help with his anxiety t alondra. He is encouraged to start seeing Father Lazaro again as he reports this as helpful. Patient encouraged to reach out to his support system once discharged from the hospital. Therapy recommended for prolonged grief. - Orders Orders Last 24hrs: Active Orders 24 hr Category Date Time Status Patient Status [ADT] Routine ADT 05/16/20 22:30 Active Cardiac Monitoring [RC] 0800,1999 Care 05/16/20 22:30 Active Notify Provider Consults [RC] ASDIRECTED Care 05/17/20 10:07 Active Oxygen Therapy [RC] .PRN Care 05/16/20 22:30 Active Up With Assistance [RC] .PRN Care 05/16/20 22:30 Active Vital Signs [RC] 0000,0400,0800,1200,1600,2000 Care 05/16/20 22:30 Active Consult to Physician [CONS] Routine Cons 05/17/20 10:07 Active Abdomen Pelvis w Cont [CT] Stat Exams 05/16/20 20:49 Taken Chest w Cont [CT] Stat Exams 05/16/20 21:30 Taken Acetaminophen [TylenoL] Med 05/16/20 22:30 Active 650 mg PO Q4H PRN Apixaban [Eliquis] Med 05/17/20 09:45 Active 5 mg PO BID Furosemide [Lasix] Med 05/16/20 22:15 Active 20 mg PO ASDIRECTED PRN Non-Formulary Medication [NF Drug] Med 05/17/20 09:45 Active 0 each PO BID Omeprazole [Prilosec] Med 05/17/20 09:45 Active 0 mg PO ACBREAKFAST Ondansetron [Zofran ODT] Med 05/16/20 22:30 Active 4 mg PO Q4H PRN Ondansetron [Zofran ODT] Med 05/16/20 22:04 Active 4 mg PO Q6H PRN Ondansetron [Zofran] Med 05/16/20 22:30 Active 4 mg IV Q4H PRN PARoxetine [Paxil] Med 05/18/20 20:00 Active 40 mg PO BEDTIME Pantoprazole [ProTONIX IV] Med 05/17/20 09:30 Active 40 mg IVPUSH Q24H Sodium Chloride 0.9% [Normal Saline] 1,000 ml Med 05/16/20 21:45 Active IV ASDIRECTED Sodium Chloride 0.9% [Saline Flush] Med 05/16/20 22:30 Active 10 ml FLUSH ASDIRECTED PRN Tamsulosin [Flomax] Med 05/17/20 20:00 Active 0.4 mg PO BEDTIME Temazepam [Restoril] Med 05/16/20 22:30 Active 15 mg PO BEDTIME PRN carBAMazepine [TEGretol XR] Med 05/17/20 09:30 Active 0 mg PO BID carBAMazepine [TEGretol XR] Med 05/17/20 09:45 Active 0 mg PO BID sitaGLIPtin Phosphate [Januvia] Med 05/17/20 09:45 Active 0 mg PO DAILY Saline Lock Insert [OM.PC] Routine Oth 05/16/20 22:30 Ordered Resuscitation Status Routine Resus Stat 05/16/20 21:57 Ordered Medication Orders Acetaminophen (Tylenol) 650 mg PO Q4H PRN PRN Reason: Pain (Mild 1-3)/fever Last Admin: 05/17/20 17:09 Dose: 650 mg Documented by: BRENDA Apixaban (Eliquis) 5 mg PO BID [facility] Last Admin: 05/17/20 19:31 Dose: 5 mg Documented by: Admin: 05/17/20 09:50 Dose: 5 mg Documented by: SYED Furosemide (Lasix) 20 mg PO ASDIRECTED PRN PRN Reason: Edema Sodium Chloride (Normal Saline) 1,000 mls @ 125 mls/hr IV ASDIRECTED [facility] Last Admin: 05/16/20 22:10 Dose: 125 mls/hr Documented by: DARLENE Carbamazepine [ Tegretol Xr] 100 Mg Ptom 0 mg PO BID [facility] Last Admin: 05/17/20 19:32 Dose: 100 mg Documented by: Admin: 05/17/20 09:49 Dose: 100 mg Documented by: SYED Carbamazepine [ Tegretol Xr] 200 Mg Ptom 0 mg PO BID [facility] Last Admin: 05/17/20 19:32 Dose: 200 mg Documented by: Admin: 05/17/20 09:50 Dose: 200 mg Documented by: SYED Losartan 50mg Tab (Ptom) 0 each PO BID [facility] Last Admin: 05/17/20 19:31 Dose: 1 each Documented by: Admin: 05/17/20 09:50 Dose: 1 each Documented by: SYED Pantoprazole 40mg (Tab Ptom) 0 mg PO ACBREAKFAST [facility] Last Admin: 05/17/20 09:52 Dose: 40 mg Documented by: SYED Sitagliptin Phosphate [Januvia] 50 Mg Ptom 0 mg PO DAILY [facility] Last Admin: 05/17/20 09:51 Dose: 50 mg Documented by: SYED Ondansetron HCl (Zofran Odt) 4 mg PO Q6H PRN PRN Reason: Nausea Last Admin: 05/17/20 18:10 Dose: 4 mg Documented by: BRENDA Ondansetron HCl (Zofran Odt) 4 mg PO Q4H PRN PRN Reason: nausea, able to take PO Ondansetron HCl (Zofran) 4 mg IV Q4H PRN PRN Reason: Nausea/Vomiting Pantoprazole Sodium (Protonix Iv) 40 mg IVPUSH Q24H [facility] Last Admin: 05/17/20 09:41 Dose: 40 mg Documented by: [id number] Paroxetine HCl (Paxil) 40 mg PO BEDTIME [facility]EN Sodium Chloride (Saline Flush) 10 ml FLUSH ASDIRECTED PRN PRN Reason: Keep Vein Open Tamsulosin HCl (Flomax) 0.4 mg PO BEDTIME [facility] Last Admin: 05/17/20 19:30 Dose: 0.4 mg Documented by: DARLENE Temazepam (Restoril) 15 mg PO BEDTIME PRN PRN Reason: Sleep TeleHealth - TeleHealth Patient Service Facility: [facility]: [facility] Informed Consent: Telemedicine Audio/Visual Informed Consent: The risks, benefits, and alternatives to the telehealth visit were explained to the patient and the patient consented to this modality of care. The telehealth visit was carried out via a secure, web-based conferencing system. This telemedicine service was a real-time, two-way interactive video and communication between the patient and the provider. All the parties involved were identified and approved by the patient prior to the visit. Any physical exam was assisted by the patient. Unless noted otherwise, the provider was located at their usual clinic location, and the patient was at their place of residence. Patient identity was confirmed by having the patient state their name and date of . All communications with the patient (verbal, audiovisual, and written) were documented in the patients medical record per documentation standards.
[2020-05-18] MEDS: CARBAMAZEPINE 100 MG PO SCH (07:26)
[2020-05-18] MEDS: CARBAMAZEPINE 200 MG PO SCH (07:26)
[2020-05-18] MEDS: PANTOPRAZOLE 40 MG PO SCH (07:26)
[2020-05-18] MEDS: Apixaban 5 MG Tab **PTOM PO SCH (07:27)
[2020-05-18] MEDS: LOSARTAN 50 MG PO SCH (07:27)
[2020-05-18] MEDS: SITAGLIPTIN PHOSPHATE 50 MG PO SCH (07:27)
[2020-05-18 08:23] VITALS: BP 134/82; PULSE 72
--- NOTE | 2020-05-18 08:29 | PCM.DCSUM1 ---
Discharge Summary - Hospital Course Diagnosis: Stroke: No - Discharge Data Discharge Date: 05/18/20 Discharge Disposition: Home, Self-Care 01 Condition: Good - Referral to Home Health Primary Care Physician: Zheng Garrett MD - Discharge Diagnosis/Problem(s) (1) Abdominal pain, epigastric SNOMED Code(s): 51764746 ICD Code: R10.13 - EPIGASTRIC PAIN Status: Resolved Priority: High Current Visit: Yes (2) Hyponatremia SNOMED Code(s): 54244801 ICD Code: E87.1 - HYPO-OSMOLALITY AND HYPONATREMIA Status: Resolved Prio rity: High Current Visit: Yes (3) Depression SNOMED Code(s): 78544423 ICD Code: F32.9 - MAJOR DEPRESSIVE DISORDER, SINGLE EPISODE, UNSPECIFIED Status: Acute Priority: Medium Current Visit: No Qualifiers: Depression Type: unspecified Qualified Code(s): F32.9 - Major depressive disorder, single episode, unspecified - Patient Summary/Data Consults: Consultations 05/17/20 10:07 Consult to Physician [CONS] Routine - Patient Instructions Diet: Usual Diet as Tolerated Activity: As Tolerated Notify Provider of: Increased Pain, Nausea and/or Vomiting - Discharge Plan *PRESCRIPTION DRUG MONITORING PROGRAM REVIEWED*: No *COPY OF PRESCRIPTION DRUG MONITORING REPORT IN PATIENT ROBIN: No Prescriptions/Med Rec: Pantoprazole [ProTONIX] 40 mg PO DAILY #30 tab.cr Home Medications: Home Meds Tamsulosin HCl 0.4 mg PO DAILY 03/11/15 [History] Apixaban [Eliquis] 5 mg PO BID 05/28/17 [History] Losartan Potassium 50 mg PO BID 07/07/19 [History] Furosemide [Lasix] 40 mg PO ASDIRECTED 10/28/19 [History] PARoxetine HCL [Paroxetine HCl] 20 mg PO DAILY 10/28/19 [History] carBAMazepine [TEGretol XR] 100 mg PO BID 10/28/19 [History] carBAMazepine [TEGretol XR] 200 mg PO BID 10/28/19 [History] Ondansetron [Zofran ODT] 4 mg PO Q6H PRN 05/09/20 [History] sitaGLIPtin Phosphate [Januvia] 50 mg PO DAILY 05/09/20 [History] Pantoprazole [ProTONIX] 40 mg PO DAILY #30 tab.cr 05/18/20 [Rx] Forms: ED Department Discharge Referrals: Zheng Garrett MD [Primary Care Provider] - - Discharge Summary/Plan Comment DC Time >30 min.: Yes Discharge Summary/Plan Comment: Marty denies any discomfort this morning and states mentally he is feeling a lot better. Ready to go home. Vital signs stable. Will follow up with Dr. Garrett next week and regular scheduled hospital follow up. Strongly encouraged Marty to get out and socialize and continue seeing Father Lazaro regularly. - General Info Date of Service: 05/18/20 Subjective Update: Marty is a 75 yo male who was initially seen in the ED yesterday for constipation. Patient was given enemas and Magnesium Sulfate. Was discharged home and had a large bowel movement. Started to have some abdominal discomfort and returned to the ED. Patient was admitted for hyponatremia and abdominal pain. CT of the chest/abdomen/pelvis was negative last night for any acute findings. 05/17/2020 Marty is sleeping this morning. Upon waking up he admits to ongoing stomach pain. States his stomach hurts partially because he misses his . He did eat 1/2 of his breakfast. No vomiting but does admit to nausea. Has no other complaints. 05/17/2020 Marty is in good spirits this morning. Currently asymptomatic with no complaints of stomach pain. Admits his stomach seems to hurt when he is having increased anxiety/depression. Feels as if he needs to make changes in his life to continue to get better. States he is ready to go home today. Functional Status: Reports: Pain Controlled, Tolerating Diet, Ambulating, Urinating - Review of Systems General: Reports: No Symptoms HEENT: Reports: No Symptoms Pulmonary: Reports: No Symptoms Cardiovascular: Reports: No Symptoms Gastrointestinal: Reports: No Symptoms Genitourinary: Reports: No Symptoms Musculoskeletal: Reports: No Symptoms Skin: Reports: No Symptoms Neurological: Reports: No Symptoms - Patient Data Vitals - Most Recent: Last Vital Signs Temp 97.6 F 05/18/20 08:00 Pulse 72 05/18/20 08:00 Resp 16 05/18/20 08:00 BP 134/82 05/18/20 08:00 Pulse Ox 98 05/18/20 08:00 Weight - Most Recent: 261 lb 11.2 oz Med Orders - Current: Current Medications Acetaminophen (Tylenol) 650 mg PO Q4H PRN PRN Reason: Pain (Mild 1-3)/fever Last Admin: 05/17/20 17:09 Dose: 650 mg Documented by: Apixaban (Eliquis) 5 mg PO BID [facility] Last Admin: 05/18/20 07:27 Dose: 5 mg Documented by: Furosemide (Lasix) 20 mg PO ASDIRECTED PRN PRN Reason: Edema Sodium Chloride (Normal Saline) 1,000 mls @ 125 mls/hr IV ASDIRECTED [facility] Last Admin: 05/16/20 22:10 Dose: 125 mls/hr Documented by: Carbamazepine [ Tegretol Xr] 100 Mg Ptom 0 mg PO BID [facility] Last Admin: 05/18/20 07:26 Dose: 100 mg Documented by: Carbamazepine [ Tegretol Xr] 200 Mg Ptom 0 mg PO BID [facility] Last Admin: 05/18/20 07:26 Dose: 200 mg Documented by: Losartan 50mg Tab (Ptom) 0 each PO BID [facility] Last Admin: 05/18/20 07:27 Dose: 1 each Documented by: Pantoprazole 40mg (Tab Ptom) 0 mg PO ACBREAKFAST [facility] Last Admin: 05/18/20 07:26 Dose: 40 mg Documented by: Sitagliptin Phosphate [Januvia] 50 Mg Ptom 0 mg PO DAILY [facility] Last Admin: 05/18/20 07:27 Dose: 50 mg Documented by: Ondansetron HCl (Zofran Odt) 4 mg PO Q6H PRN PRN Reason: Nausea Last Admin: 05/17/20 18:10 Dose: 4 mg Documented by: Ondansetron HCl (Zofran Odt) 4 mg PO Q4H PRN PRN Reason: nausea, able to take PO Ondansetron HCl (Zofran) 4 mg IV Q4H PRN PRN Reason: Nausea/Vomiting Pantoprazole Sodium (Protonix Iv) 40 mg IVPUSH Q24H [facility] Last Admin: 05/17/20 09:41 Dose: 40 mg Documented by: Paroxetine HCl (Paxil) 40 mg PO BEDTIME [facility] Sodium Chloride (Saline Flush) 10 ml FLUSH ASDIRECTED PRN PRN Reason: Keep Vein Open Tamsulosin HCl (Flomax) 0.4 mg PO BEDTIME [facility] Last Admin: 05/17/20 19:30 Dose: 0.4 mg Documented by: Temazepam (Restoril) 15 mg PO BEDTIME PRN PRN Reason: Sleep Discontinued Medications Clonazepam (Klonopin) 0.25 mg PO ONETIME ONE Stop: 05/17/20 11:02 Last Admin: 05/17/20 11:32 Dose: Not Given Documented by: Clonazepam (Klonopin) 0.25 mg PO ONETIME ONE Stop: 05/17/20 11:31 Last Admin: 05/17/20 11:25 Dose: 0.25 mg Documented by: Clopidogrel Bisulfate (Plavix) 75 mg PO DAILY [facility] Last Admin: 05/17/20 11:29 Dose: Not Given Documented by: Fentanyl (Fentanyl) 25 mcg IVPUSH Q4H PRN PRN Reason: Pain Iopamidol (Isovue-370 (76%)) 100 ml IVPUSH ONETIME ONE Stop: 05/16/20 21:05 Last Admin: 05/16/20 21:33 Dose: 100 ml Documented by: Non-Formulary Medication (Clonazepam [Clonazepam]) 0.25 mg PO BID [facility] Last Admin: 05/17/20 11:29 Dose: Not Given Documented by: Paroxetine HCl (Paxil) 40 mg PO ONETIME ONE Stop: 05/17/20 11:16 Last Admin: 05/17/20 11:22 Dose: 40 mg Documented by: - Exam General: Reports: Alert, Oriented Neck: Reports: Supple Lungs: Reports: Clear to Auscultation, Normal Respiratory Effort Cardiovascular: Reports: Regular Rate, Regular Rhythm, No Murmurs GI/Abdominal Exam: Normal Bowel Sounds, Soft, Non-Tender, No Organomegaly, No Distention Extremities: Normal Inspection, No Pedal Edema Skin: Reports: Warm, Dry, Intact Neurological: Reports: No New Focal Deficit Psy/Mental Status: Reports: Alert, Normal Affect, Normal Mood. Denies: Anxious, Depressed
[2020-05-18] MEDS ORDERED: PARoxetine 20 MG Tab PO SCH (20:00)
== END 2020-05-18 08:24 | disposition home or self-care (01) ==
LOC: CC.ED 19:56 → CC.MS 21:30 → UNDOADMOB 21:30 → CC.MS 21:56
PROVIDERS: ADMIT Physician Assistant Medical; ATTEND Family Medicine
DX: R10.13 Epigastric pain (principal); K59.00 Constipation, unspecified; N40.0 Benign prostatic hyperplasia without lower urinary tract symptoms; E66.9 Obesity, unspecified; E87.1 Hypo-osmolality and hyponatremia; Z88.1 Allergy status to other antibiotic agents; Z88.0 Allergy status to penicillin; Z79.899 Other long term (current) drug therapy; Z98.890 Other specified postprocedural states; Z68.35 Body mass index [BMI] 35.0-35.9, adult; I48.91 Unspecified atrial fibrillation; K21.9 Gastro-esophageal reflux disease without esophagitis; R56.9 Unspecified convulsions; Z79.01 Long term (current) use of anticoagulants; Z79.02 Long term (current) use of antithrombotics/antiplatelets
CPT/HCPCS: 36415; 71260; 74019; 74177; 80048; 80053; 81001; 82150; 83690; 85025; 86140; 96372; 96374; 99217; 99220; 99225; 99283; 99285-25; A9270-GY; C9113; G0378; J2405; J7030; Q9967

== ENCOUNTER 2020-11-02 08:28 | Emergency (ER) | payer MEDICARE, OTHER ==
[2020-11-02 08:45] VITALS: PULSE 73
[2020-11-02 09:10] LABS: CHLORIDE,CL 93 mEq/L (98-106); SODIUM,NA 127 mEq/L (136-145)
--- NOTE | 2020-11-02 09:20 | EDM.PDOC ---
ED HPI GENERAL MEDICAL PROBLEM - General Chief Complaint: General Stated Complaint: "Near sycopal episode" Time Seen by Provider: 11/02/20 09:00 Source of Information: Reports: Patient, EMS Notes Reviewed, RN History Limitations: Reports: No Limitations - History of Present Illness INITIAL COMMENTS - FREE TEXT/NARRATIVE: Marty is a 75 yo male who is brought into the ED via [facility] with concerns of near syncope. Patient states he got up this morning and had his normal daily routine and took his morning medications. He went and got dressed. Decided to go up town for breakfast and coffee. Remembers ordering coffee. Got up to go to the bathroom and states it just hit him. States everything started to spin and was able to get himself to sit on the ground. States he has been extremely tired lately. States all he wants to do is sleep. EMS state he was very difficult to arouse en route. States he would sleep and they would have to go give him a sternal rub. He would then answer questions. He is alert and answering all questions appropriately upon my entrance. Admits to having a cough and taking Nyquil all thru the night last night. States he doesn't measure it ou t just takes a swig whenever he feels like it. - Related Data Allergies Allergy/AdvReac Type Severity Reaction Status Date / Time clarithromycin [From Biaxin] Allergy Rash Verified 05/16/20 21:08 doxycycline Allergy Rash Verified 05/16/20 21:08 Penicillins Allergy Rash Verified 05/16/20 21:08 Home Meds: Home Meds Tamsulosin HCl 0.4 mg PO DAILY 03/11/15 [History] Apixaban [Eliquis] 5 mg PO BID 05/28/17 [History] Losartan Potassium 50 mg PO BID 07/07/19 [History] Furosemide [Lasix] 20 mg PO ASDIRECTED PRN 10/28/19 [History] PARoxetine HCL [Paroxetine HCl] 40 mg PO DAILY 10/28/19 [History] carBAMazepine [TEGretol XR] 100 mg PO BID 10/28/19 [History] carBAMazepine [TEGretol XR] 200 mg PO BID 10/28/19 [History] Ondansetron [Zofran ODT] 4 mg PO Q6H PRN 05/09/20 [History] sitaGLIPtin Phosphate [Januvia] 50 mg PO DAILY 05/09/20 [History] Pantoprazole [ProTONIX] 40 mg PO DAILY #30 tab.cr 05/18/20 [Rx] Past Medical History HEENT History: Reports: Allergic Rhinitis Other HEENT History: GLASSES Cardiovascular History: Reports: Afib, Arrhythmia, Heart Murmur, Pacemaker, SOB on Exertion Respiratory History: Reports: None Gastrointestinal History: Reports: GERD Genitourinary History: Reports: BPH Other Genitourinary History: OVERACTIVE BLADDER Musculoskeletal History: Reports: Arthritis Neurological History: Reports: Seizure Psychiatric History: Reports: Depression, Suicide Attempt Endocrine/Metabolic History: Reports: Obesity/BMI 30+ Hematologic History: Reports: Anticoagulation Therapy - Past Surgical History Other Cardiovascular Surgeries/Procedures: heart valve placed Social & Family History - Family History Family Medical History: No Pertinent Family History Cardiac: Reports: High Cholesterol, Hypertension - Caffeine Use Caffeine Use: Reports: None - Living Situation & Occupation Living situation: Reports: , Alone Occupation: Retired ED ROS GENERAL - Review of Systems Review Of Systems: See Below Constitutional: Reports: Fatigue. Denies: Fever, Chills, Weakness, Decreased Appetite HEENT: Reports: Rhinitis. Denies: Eye Pain, Sinus Problem, Vision Change Respiratory: Reports: Shortness of Breath, Cough Cardiovascular: Reports: Dyspnea on Exertion, Lightheadedness. Denies: Chest Pain, Edema, Palpitations GI/Abdominal: Reports: Constipation. Denies: Abdominal Pain, Diarrhea, Nausea, Vomiting : Denies: Dysuria, Frequency, Hematuria, Pain Musculoskeletal: Reports: No Symptoms. Denies: Neck Pain, Back Pain Neurological: Reports: No Symptoms. Denies: Confusion, Dizziness, Headache, Syncope Psychiatric: Reports: Depression. Denies: Suicidal Ideation ED EXAM, GENERAL - Physical Exam Exam: See Below Exam Limited By: No Limitations General Appearance: Alert, No Apparent Distress, Obese Eye Exam: Bilateral Eye: EOMI, Normal Inspection, PERRL Ears: Normal External Exam, Normal Canal, Hearing Grossly Normal, Normal TMs Nose: Normal Inspection, No Blood Throat/Mouth: Normal Inspection, Normal Lips, Normal Teeth, Normal Gums, Normal Oropharynx, No Airway Compromise Head: Atraumatic, Normocephalic Neck: Normal Inspection, Supple Respiratory/Chest: No Respiratory Distress, Lungs Clear, Normal Breath Sounds, No Accessory Muscle Use Cardiovascular: Regular Rate, Rhythm, No Edema, No Murmur GI/Abdominal: Soft, Non-Tender, No Organomegaly, No Distention, No Abnormal Bruit Extremities: Normal Inspection, No Pedal Edema Neurological: Alert, Oriented, Normal Cognition, No Motor/Sensory Deficits Psychiatric: Depressed Mood, Tearful Skin Exam: Warm, Dry, Intact. No: Rash #1 Interpretation EKG Date: 11/02/20 Time: 08:42 Rhythm: Other (Wide QRS rhythm) [place]: LAD-Left [place] Deviation QRS: LBBB Comparison: No Change Course - Vital Signs Last Recorded V/S: Last Vital Signs Temp 98.0 F 11/02/20 08:41 Pulse 73 11/02/20 08:41 Resp 19 11/02/20 08:41 BP 177/101 H 11/02/20 11:51 Pulse Ox 94 L 11/02/20 08:41 - Orders/Labs/Meds Orders: Active Orders 24 hr Category Date Time Status Head wo Cont [CT] Stat Exams 11/02/20 08:49 Taken Labs: Laboratory Tests 11/02/20 11/02/20 11/02/20 Range/Units 08:50 08:50 08:50 WBC 5.7 (4.0-11.0) 10^3/uL RBC 4.55 (4.50-6.00) x10^6/uL Hgb 14.0 (14.0-18.0) g/dL Hct 40.5 L (42.0-52.0) % MCV 89.0 (83.0-97.0) fL MCH 30.8 (27.0-32.0) pg MCHC 34.6 (32.0-36.0) g/dL RDW Coeff of Helen 13.2 (11.0-15.0) % Plt Count 175 (150-400) 10^3/uL Immature Gran % (Auto) 0.4 (0.0-4.9) % Neut % (Auto) 70.0 (41-71) % Lymph % (Auto) 11.4 L (24-44) % [place] % (Auto) 10.4 H (0-10) % Eos % (Auto) 7.4 H (0-6) % Baso % (Auto) 0.4 (0-1) % Neut # (Auto) 3.99 (1.80-8.00) x10^3/uL Lymph # (Auto) 0.65 (0.60-5.00) 10^3/uL Davie # (Auto) 0.59 (0.00-1.50) 10^3/uL Eos # (Auto) 0.42 (0.00-1.50) 10^3/uL Baso # (Auto) 0.02 (0.00-0.50) 10^3/uL Immature Gran # (Auto) 0.02 (0.00-0.49) 10^3/uL PT 11.1 (9.7-12.3) SEC INR 1.02 (0.92-1.18) Sodium 127 L (136-145) mEq/L Potassium 4.2 (3.5-5.0) mEq/L Chloride 93 L (98-106) mEq/L Carbon Dioxide 25 (21-32) mmol/L BUN 15 (7-18) mg/dL Creatinine 0.7 (0.7-1.3) mg/dL Est Cr Clr Drug Dosing 101.62 mL/min Estimated GFR (MDRD) > 60 (>=60) mL/min Glucose 135 H (75-99) mg/dL Calcium 8.3 L (8.4-10.1) mg/dL Magnesium 1.8 (1.8-2.4) mg/dL Total Bilirubin 0.3 (0.0-1.0) mg/dL AST 20 (15-37) U/L ALT 19 (12-78) U/L Alkaline Phosphatase 135 H (46-116) U/L Lactate Dehydrogenase 206 H (100-190) U/L Creatine Kinase 57 (35-232) U/L Troponin I < 0.017 (0.00-0.06) ng/mL Total Protein 7.2 (6.4-8.2) g/dL Albumin 3.2 L (3.4-5.0) g/dL Lipase 102 (73-393) U/L Urine Color (YELLOW) Urine Appearance (CLEAR) Urine pH (4.5-8.0) Ur Specific [place] (1.003-1.020) Urine Protein (NEGATIVE) mg/dL Urine Glucose (UA) (NEGATIVE) mg/dL Urine Ketones (NEGATIVE) mg/dL Urine Occult Blood (NEGATIVE) Urine Nitrite (NEGATIVE) Urine Bilirubin (NEGATIVE) Urine Urobilinogen (0.2-1.0) EU/dL Ur Leukocyte Esterase (NEGATIVE) Urine RBC (0-5) /HPF Urine WBC (0-5) /HPF 11/02/20 Range/Units 09:20 WBC (4.0-11.0) 10^3/uL RBC (4.50-6.00) x10^6/uL Hgb (14.0-18.0) g/dL Hct (42.0-52.0) % MCV (83.0-97.0) fL MCH (27.0-32.0) pg MCHC (32.0-36.0) g/dL RDW Coeff of Helen (11.0-15.0) % Plt Count (150-400) 10^3/uL Immature Gran % (Auto) (0.0-4.9) % Neut % (Auto) (41-71) % Lymph % (Auto) (24-44) % Davie % (Auto) (0-10) % Eos % (Auto) (0-6) % Baso % (Auto) (0-1) % Neut # (Auto) (1.80-8.00) x10^3/uL Lymph # (Auto) (0.60-5.00) 10^3/uL Davie # (Auto) (0.00-1.50) 10^3/uL Eos # (Auto) (0.00-1.50) 10^3/uL Baso # (Auto) (0.00-0.50) 10^3/uL Immature Gran # (Auto) (0.00-0.49) 10^3/uL PT (9.7-12.3) SEC INR (0.92-1.18) Sodium (136-145) mEq/L Potassium (3.5-5.0) mEq/L Chloride (98-106) mEq/L Carbon Dioxide (21-32) mmol/L BUN (7-18) mg/dL Creatinine (0.7-1.3) mg/dL Est Cr Clr Drug Dosing mL/min Estimated GFR (MDRD) (>=60) mL/min Glucose (75-99) mg/dL Calcium (8.4-10.1) mg/dL Magnesium (1.8-2.4) mg/dL Total Bilirubin (0.0-1.0) mg/dL AST (15-37) U/L ALT (12-78) U/L Alkaline Phosphatase (46-116) U/L Lactate Dehydrogenase (100-190) U/L Creatine Kinase (35-232) U/L Troponin I (0.00-0.06) ng/mL Total Protein (6.4-8.2) g/dL Albumin (3.4-5.0) g/dL Lipase (73-393) U/L Urine Color Yellow (YELLOW) Urine Appearance Clear (CLEAR) Urine pH 7.0 (4.5-8.0) Ur Specific [place] 1.020 (1.003-1.020) Urine Protein 100 H (NEGATIVE) mg/dL Urine Glucose (UA) Negative (NEGATIVE) mg/dL Urine Ketones Negative (NEGATIVE) mg/dL Urine Occult Blood Negative (NEGATIVE) Urine Nitrite Negative (NEGATIVE) Urine Bilirubin Negative (NEGATIVE) Urine Urobilinogen 0.2 (0.2-1.0) EU/dL Ur Leukocyte Esterase Negative (NEGATIVE) Urine RBC 0-5 (0-5) /HPF Urine WBC 0-5 (0-5) /HPF Meds: Medications Discontinued Medications Generic Name Dose Route Start Last Admin Trade Name Moq PRN Reason Stop Dose Admin Amlodipine Besylate 5 mg 11/02/20 11:39 11/02/20 11:51 Amlodipine 2.5 Mg Tab PO 11/02/20 11:40 5 mg ONETIME ONE Administration Departure - Departure Time of Disposition: 12:07 Disposition: Home, Self-Care 01 Clinical Impression: Sleep problem caused by drug, Elevated blood pressure reading - Discharge Information Referrals: Zheng Garrett MD [Primary Care Provider] - Forms: ED Department Discharge Additional Instructions: 1) Advise to stop taking Nyquil due to over using and sedation affect. 2) Tessalon Perles prescribed for cough. Sent to pharmacy 3) Blood pressure is high today, will initiate Amlodipine 5mg daily. Sent to pharmacy as well 4) Recheck with Dr. Garrett in 1-2 weeks 5) Rest today 6) Follow up or return if any concerns. Sepsis Event Note (ED) - Evaluation Sepsis Screening Result: No Definite Risk - Focused Exam Vital Signs: Vital Signs Temp Pulse Resp BP BP Pulse Ox 11/02/20 11:51 177/101 H 11/02/20 08:41 98.0 F 73 19 183/104 H 94 L - Problem List & Annotations (1) Pre-syncope SNOMED Code(s): 344152182 Code(s): R55 - SYNCOPE AND COLLAPSE Status: Suspected Priority: High Current Visit: No (2) Elevated blood pressure reading SNOMED Code(s): 30283692 Code(s): R03.0 - ELEVATED BLOOD-PRESSURE READING, W/O DIAGNOSIS OF HTN Status: Acute Current Visit: Yes (3) Sleep problem caused by drug SNOMED Code(s): 891716618 Code(s): F19.982 - OTH PSYCHOACTIVE SUBSTANCE USE, UNSP W SLEEP DISORDER Status: Acute Current Visit: Yes - Problem List Review Problem List Initiated/Reviewed/Updated: No - My Orders Last 24 Hours: My Active Orders 11/02/20 08:49 Head wo Cont [CT] Stat - Assessment/Plan Last 24 Hours: My Active Orders 11/02/20 08:49 Head wo Cont [CT] Stat Plan: Marty has been tired while in the ED but shows not sign of distress. CT head was negative for any acute findings. Laboratory work is stable. Has chronic hyponatremia. Advised Marty to stop taking Nyquil which likely caused sedation. Consulted with Dr. Garrett and will discharge patient today. Patient will be started on Amlodipine for elevated blood pressure. Tessalon perles for cough. Patient verbalized understanding. To be discharged in satisfactory condition.
[2020-11-02] MEDS ORDERED: amLODIPine 2.5 MG Tab PO ONE (11:39)
[2020-11-02 11:52] VITALS: BP 177/101
== END 2020-11-02 12:44 | disposition home or self-care (01) ==
LOC: CC.ED 08:28
DX: F15.182 Other stimulant abuse with stimulant-induced sleep disorder (principal); I48.91 Unspecified atrial fibrillation; K21.9 Gastro-esophageal reflux disease without esophagitis; E66.9 Obesity, unspecified; Z79.01 Long term (current) use of anticoagulants; Z79.899 Other long term (current) drug therapy; Z95.0 Presence of cardiac pacemaker; Z88.0 Allergy status to penicillin; Z88.1 Allergy status to other antibiotic agents; Z68.37 Body mass index [BMI] 37.0-37.9, adult
CPT/HCPCS: 36415; 70450; 80053; 81001; 82550; 83615; 83690; 83735; 84484; 85025; 85610; 93005; 93010; 99284; 99284-25; A9270-GY

== ENCOUNTER 2021-01-29 05:45 | Emergency (ER) | payer MEDICARE, OTHER ==
[2021-01-29 06:23] VITALS: BP 175/96; PULSE 71
[2021-01-29] MEDS ORDERED: ClonazePAM 1 MG Tab PO STA (06:31)
--- NOTE | 2021-01-29 06:54 | EDM.PDOC ---
ED HPI GENERAL MEDICAL PROBLEM - General Chief Complaint: General Stated Complaint: panic attack Time Seen by Provider: 01/29/21 06:10 Source of Information: Reports: Patient History Limitations: Reports: No Limitations - History of Present Illness INITIAL COMMENTS - FREE TEXT/NARRATIVE: Marty is a 75 year old male who presents with the presents to ER with concerns of anxiety/panic attack. States his mind is racing, he can't stop jerking or control "the craziness". Apparently called the cell inspector with these concerns, worried about suicidal ideation. Patient admits "he just can't go on like this". Requesting something to help settle down his mind. Has had suicidal intent, ideation in the past. Not currently on anything "that helps with my nerves". patient admits he has not done well without his . She has been gone for nearly 2 years now but "I just don't know how to live without her". Has friends but relates only sees them at coffee each morning. Does talk to Father Lazaro 3 times per week, did call him this am to help with his current situation but was felt he needed to be evaluated for this. Patient feels he "needs to stay here for a couple days to settle my mind down". Has been "in the psych [facility] in [place] and do not want to go there as did not like it there". Feels dizzy at times. Denies any chest pain. Short of breath at times with the anxiety. No recent fevers, congestion or nausea/vomiting. Onset: Today Duration: Day(s):, Getting Worse Location: Reports: Generalized Improves with: Reports: None Associated Symptoms: Reports: Weakness. Denies: Confusion, Chest Pain, Cough, Fever/Chills, Loss of Appetite, Malaise, Nausea/Vomiting, Shortness of Breath - Related Data Allergies Allergy/AdvReac Type Severity Reaction Status Date / Time clarithromycin [From Biaxin] Allergy Rash Verified 05/16/20 21:08 doxycycline Allergy Rash Verified 05/16/20 21:08 Penicillins Allergy Rash Verified 05/16/20 21:08 Home Meds: Home Meds Tamsulosin HCl 0.4 mg PO DAILY 03/11/15 [History] Apixaban [Eliquis] 5 mg PO BID 05/28/17 [History] Losartan Potassium 50 mg PO BID 07/07/19 [History] Furosemide [Lasix] 20 mg PO ASDIRECTED PRN 10/28/19 [History] PARoxetine HCL [Paroxetine HCl] 40 mg PO DAILY 10/28/19 [History] carBAMazepine [TEGretol XR] 100 mg PO BID 10/28/19 [History] carBAMazepine [TEGretol XR] 200 mg PO BID 10/28/19 [History] Ondansetron [Zofran ODT] 4 mg PO Q6H PRN 05/09/20 [History] sitaGLIPtin Phosphate [Januvia] 50 mg PO DAILY 05/09/20 [History] Pantoprazole [ProTONIX] 40 mg PO DAILY #30 tab.cr 05/18/20 [Rx] Past Medical History HEENT History: Reports: Allergic Rhinitis Other HEENT History: GLASSES Cardiovascular History: Reports: Afib, Arrhythmia, Heart Murmur, Pacemaker, SOB on Exertion Respiratory History: Reports: None Gastrointestinal History: Reports: GERD Genitourinary History: Reports: BPH Other Genitourinary History: OVERACTIVE BLADDER Musculoskeletal History: Reports: Arthritis Neurological History: Reports: Seizure Psychiatric History: Reports: Depression, Suicide Attempt Endocrine/Metabolic History: Reports: Obesity/BMI 30+ Hematologic History: Reports: Anticoagulation Therapy - Past Surgical History Other Cardiovascular Surgeries/Procedures: heart valve placed Social & Family History - Family History Family Medical History: No Pertinent Family History Cardiac: Reports: High Cholesterol, Hypertension - Tobacco Use Tobacco Use Status *Q: Unknown Ever Used Tobacco - Caffeine Use Caffeine Use: Reports: None - Living Situation & Occupation Living situation: Reports: , Alone Occupation: Retired ED ROS GENERAL - Review of Systems Review Of Systems: See Below Constitutional: Reports: Weakness, Fatigue. Denies: Fever, Chills, Malaise HEENT: Denies: Ear Pain, Sinus Problem, Throat Pain, Vertigo Respiratory: Denies: Shortness of Breath, Cough Cardiovascular: Denies: Chest Pain, Edema, Lightheadedness Endocrine: Reports: Fatigue GI/Abdominal: Denies: Abdominal Pain, Constipation, Diarrhea, Nausea, Vomiting : Reports: No Symptoms Musculoskeletal: Reports: No Symptoms Skin: Reports: No Symptoms Neurological: Reports: No Symptoms Psychiatric: Reports: Anxiety ED EXAM, GENERAL - Physical Exam Exam: See Below Exam Limited By: No Limitations General Appearance: Alert, WD/WN, No Apparent Distress Ears: Normal External Exam, Normal TMs Nose: Normal Inspection, Normal Mucosa, No Blood Throat/Mouth: Normal Inspection, Normal Oropharynx Head: Normocephalic Neck: Normal Inspection, Supple, Non-Tender Respiratory/Chest: No Respiratory Distress, Lungs Clear, Normal Breath Sounds Cardiovascular: Irregularly Irregular Neurological: Alert, Oriented Psychiatric: Anxious Skin Exam: Warm, Dry Course - Vital Signs Last Recorded V/S: Last Vital Signs Temp 99.1 F 01/29/21 06:20 Pulse 71 01/29/21 06:20 Resp 18 01/29/21 06:20 BP 175/96 H 01/29/21 06:20 Pulse Ox 96 01/29/21 06:20 - Orders/Labs/Meds Meds: Medications Discontinued Medications Generic Name Dose Route Start Last Admin Trade Name Krys PRN Reason Stop Dose Admin Clonazepam 1 mg 01/29/21 06:31 01/29/21 07:06 Clonazepam 1 Mg Tab PO 01/29/21 06:32 1 mg STAT STA Administration - Re-Assessments/Exams Free Text/Narrative Re-Assessment/Exam: 01/29/21 0700-Much discussion held with patient. Does calm down with conversati on. Will give Clonazepam and reevaluate later. 01/29/21 11:30 Patient was given a dose of Clonazepam this am. has slept well. Admits to feeling much better. Requesting to go home and promises to no self harm. Did agree to send home #8 tablets of 0.5 mg clonazepam with patient with the consent to take them as directed and if feeling any suicidal thoughts to return back to ER. Will need to follow up with Dr. Garrett if increased anxiety persists. Departure - Departure Time of Disposition: 11:31 Disposition: Home, Self-Care 01 Condition: Good Clinical Impression: Anxiety, Suicidal ideation - Discharge Information *PRESCRIPTION DRUG MONITORING PROGRAM REVIEWED*: No *COPY OF PRESCRIPTION DRUG MONITORING REPORT IN PATIENT ROBIN: No Instructions: Managing Anxiety, Adult Referrals: PCP,None [Primary Care Provider] - Forms: ED Department Discharge Additional Instructions: 1. Rest 2. Consider resuming care with Dr. Hernandez 3. Clonazepam 0.5 mg every 8 hours as needed for anxiety, may take 2 tabs at bedtime. 4. See Dr. Garrett early next week if ongoing concerns with anxiety 5. Return to ER if any further suicidal ideation Sepsis Event Note (ED) - Evaluation Sepsis Screening Result: No Definite Risk - Focused Exam Vital Signs: Vital Signs Temp Pulse Resp BP Pulse Ox 01/29/21 06:20 99.1 F 71 18 175/96 H 96
== END 2021-01-29 13:12 | disposition home or self-care (01) ==
LOC: CC.ED 05:45
DX: F41.9 Anxiety disorder, unspecified (principal); R45.851 Suicidal ideations; I48.91 Unspecified atrial fibrillation; K21.9 Gastro-esophageal reflux disease without esophagitis; N40.0 Benign prostatic hyperplasia without lower urinary tract symptoms; M19.90 Unspecified osteoarthritis, unspecified site; E66.9 Obesity, unspecified; Z68.35 Body mass index [BMI] 35.0-35.9, adult; Z79.01 Long term (current) use of anticoagulants; Z88.1 Allergy status to other antibiotic agents; Z88.0 Allergy status to penicillin; Z79.899 Other long term (current) drug therapy
CPT/HCPCS: 99283; 99284; A9270

== ENCOUNTER 2021-06-26 15:33 | Emergency (ER) | payer MEDICARE, OTHER ==
[2021-06-26] MEDS: Ondansetron 4 MG Tab.DIS PO ONE (16:10)
[2021-06-26] MEDS: HYDROmorphone 1 MG/ML Syringe SUBCUT ONE (16:11)
[2021-06-26 16:13] LABS: CHLORIDE,CL 97 mEq/L (98-106); SODIUM,NA 136 mEq/L (136-145)
[2021-06-26] MEDS ORDERED: Take Home: Cyclobenzaprine 10 MG Tab, 4 Tab Pack ONE (18:08)
[2021-06-26] MEDS ORDERED: Take Home: Ondansetron 4 MG Tab.DIS, 2 Tab Pack ONE (18:08)
[2021-06-26] MEDS ORDERED: Take Home: Cyclobenzaprine 10 MG Tab, 4 Tab Pack PO ONE (18:09)
[2021-06-26] MEDS ORDERED: Take Home: Ondansetron 4 MG Tab.DIS, 2 Tab Pack PO ONE (18:20)
== END 2021-06-26 19:19 | disposition home or self-care (01) ==
LOC: CC.ED 15:33
DX: S10.91XA Abrasion of unspecified part of neck, initial encounter (principal); M54.50 Low back pain, unspecified; I48.91 Unspecified atrial fibrillation; K21.9 Gastro-esophageal reflux disease without esophagitis; N40.0 Benign prostatic hyperplasia without lower urinary tract symptoms; E66.9 Obesity, unspecified; Z88.0 Allergy status to penicillin; Z88.1 Allergy status to other antibiotic agents; Z68.34 Body mass index [BMI] 34.0-34.9, adult; Z79.01 Long term (current) use of anticoagulants; Z79.899 Other long term (current) drug therapy; W17.89XA Other fall from one level to another, initial encounter
CPT/HCPCS: 36415; 70450; 71045; 72125; 72131; 80053; 85025; 85610; 93005; 96372; 99284; 99284-25; A9270-GY; J1170

== ENCOUNTER 2021-10-02 05:51 | Emergency (ER) | payer MEDICARE, OTHER ==
[2021-10-02 06:03] VITALS: PULSE 70
[2021-10-02] MEDS: Alum Hydrox/Mag Hydrox/Simeth 30 ML, Lidocaine 2% 15 ML PO ONE ×2 (06:29)
[2021-10-02 06:33] VITALS: BP 168/99
== END 2021-10-02 07:15 | disposition home or self-care (01) ==
LOC: CC.ED 05:51
DX: F41.9 Anxiety disorder, unspecified (principal); K21.9 Gastro-esophageal reflux disease without esophagitis; I48.91 Unspecified atrial fibrillation; Z79.899 Other long term (current) drug therapy; Z88.0 Allergy status to penicillin; Z88.8 Allergy status to other drugs, medicaments and biological substances
CPT/HCPCS: 36415; 71045; 80053; 82150; 83690; 84484; 85025; 93005; 99284; 99284-25; A9270-GY

== ENCOUNTER 2022-01-20 13:00 | Inpatient (IN) | payer MEDICARE, OTHER ==
[2022-01-20 13:13] VITALS: PULSE 70
[2022-01-20] MEDS ORDERED: Morphine 2 MG/ML SYRINGE IVPUSH ONE ×2 (13:50→17:30)
[2022-01-20] MEDS: Iopamidol 755 Mg/ML 100 ML Bottle IVPUSH ONE ×2 (13:50→14:20)
[2022-01-20] MEDS ORDERED: Famotidine 20 MG/2 ML SDV IVPUSH ONE (14:44)
[2022-01-20] MEDS ORDERED: Lidocaine 1% 30 ML SDV ONE (15:57)
[2022-01-20] MEDS ORDERED: fentaNYL 50 MCG/ML SDV ONE (15:57)
[2022-01-20] MEDS ORDERED: Midazolam 1 MG/ML 2 ML SDV ONE (15:57)
[2022-01-20 16:02] LABS: AMPHETAMINES,URINE NEGATIVE (NEGATIVE); BARBITURATES,URINE NEGATIVE (NEGATIVE); BENZODIAZEPINE,URINE NEGATIVE (NEGATIVE); MDMA (ECSTASY), URINE NEGATIVE (NEGATIVE); METHADONE,URINE NEGATIVE (NEGATIVE); METHAMPHETAMINES,URINE NEGATIVE (NEGATIVE); OPIATES,URINE NEGATIVE (NEGATIVE); OXYCODONE,URINE NEGATIVE (NEGATIVE); PHENCYCLIDINE,URINE NEGATIVE (NEGATIVE); TCA,URINE NEGATIVE (NEGATIVE)
[2022-01-20] MEDS ORDERED: fentaNYL 50 MCG/ML SDV IVPUSH ONE (16:25)
[2022-01-20] MEDS ORDERED: Midazolam 1 MG/ML 2 ML SDV IVPUSH ONE (16:32)
[2022-01-20] MEDS: Midazolam 1 MG/ML 2 ML SDV IVPUSH ONE ×2 (16:32→16:36)
[2022-01-20] MEDS ORDERED: Lidocaine 1% 30 ML SDV INJECT ONE (16:35)
[2022-01-20] MEDS ORDERED: ceFAZolin 1 GM Vial IVPUSH ONE (16:45)
[2022-01-20] MEDS ORDERED: Morphine 2 MG/ML SYRINGE IM ONE (17:07)
[2022-01-20 18:46] VITALS: BP 120/54
[2022-01-20] MEDS ORDERED: Sennosides 8.6 MG Tab PO ONE (20:00)
[2022-01-20] MEDS ORDERED: Acetaminophen 325 MG Tab PO ONE (20:00)
[2022-01-20] MEDS ORDERED: Apixaban 5 MG Tab PO ONE (20:00)
[2022-01-20] MEDS ORDERED: Gabapentin 100 MG Cap PO ONE (20:00)
[2022-01-20] MEDS ORDERED: Tamsulosin 0.4 MG Cap.ER PO ONE (20:00)
[2022-01-21] MEDS ORDERED: Sodium Chloride 0.9% 1,000 ML IV ONE ×2 (00:20→07:00)
[2022-01-21] MEDS ORDERED: Ondansetron 4 MG Tab.DIS PO ONE (00:20)
[2022-01-21] MEDS ORDERED: Acetaminophen/oxyCODONE 325-5 MG Tab PO ONE ×3 (00:20→23:20)
[2022-01-21] MEDS ORDERED: Cyclobenzaprine 10 MG Tab PO ONE ×2 (04:00→20:00)
[2022-01-21] MEDS ORDERED: Morphine 2 MG/ML SYRINGE IV ONE (07:15)
[2022-01-21] MEDS ORDERED: Lidocaine 5% 700 MG Patch TRDERM ONE (08:00)
[2022-01-21] MEDS ORDERED: Pantoprazole 40 MG Tab.CR PO ONE (08:00)
[2022-01-21] MEDS ORDERED: Clopidogrel 75 MG Tab PO ONE (08:00)
[2022-01-21] MEDS ORDERED: Apixaban 5 MG Tab PO ONE ×2 (08:00→20:00)
[2022-01-21] MEDS ORDERED: Sennosides 8.6 MG Tab PO ONE ×2 (08:00→20:00)
[2022-01-21] MEDS ORDERED: metFORMIN 500 MG Tab PO ONE ×2 (08:00→17:30)
[2022-01-21] MEDS ORDERED: Ibuprofen 200 MG Tab PO ONE (08:00)
[2022-01-21] MEDS ORDERED: amLODIPine 10 MG Tab PO ONE (08:00)
[2022-01-21] MEDS ORDERED: Magnesium Hydroxide 400 MG/5 ML Susp 30 ML Cup PO ONE (08:00)
[2022-01-21] MEDS ORDERED: Losartan 100 MG Tab PO ONE (08:00)
[2022-01-21] MEDS ORDERED: carBAMazepine 200 MG Tab PO ONE ×2 (08:00→20:00)
[2022-01-21] MEDS ORDERED: Polyethylene Glycol 3350 Powder 17 GM Packet PO ONE (08:00)
[2022-01-21] MEDS ORDERED: Gabapentin 100 MG Cap PO ONE ×3 (08:00→20:00)
[2022-01-21] MEDS ORDERED: PARoxetine 20 MG Tab PO ONE (12:00)
[2022-01-21] MEDS ORDERED: Acetaminophen 325 MG Tab PO ONE ×2 (14:00→20:00)
[2022-01-21] MEDS ORDERED: Tamsulosin 0.4 MG Cap.ER PO ONE (20:00)
== END 2022-01-23 11:10 | disposition swing bed (61) | DRG 200 ==
LOC: CC.ED 13:00 → CC.MS 18:27
PROVIDERS: ADMIT Nurse Practitioner Family; ATTEND Nurse Practitioner Family
PROC: 0W9930Z Drainage of Right Pleural Cavity with Drainage Device, Percutaneous Approach (ICD-10-PCS; principal; 2022-01-20)
DX: S27.0XXA Traumatic pneumothorax, initial encounter (principal); S22.41XA Multiple fractures of ribs, right side, initial encounter for closed fracture; I48.91 Unspecified atrial fibrillation; E66.9 Obesity, unspecified; F32.A Depression, unspecified; Z88.0 Allergy status to penicillin; K21.9 Gastro-esophageal reflux disease without esophagitis; W17.89XA Other fall from one level to another, initial encounter; N40.0 Benign prostatic hyperplasia without lower urinary tract symptoms; Z79.899 Other long term (current) drug therapy; Z79.01 Long term (current) use of anticoagulants; Z88.1 Allergy status to other antibiotic agents; Z95.0 Presence of cardiac pacemaker; W10.9XXA Fall (on) (from) unspecified stairs and steps, initial encounter
CPT/HCPCS: 32551; 36415; 70450; 71045; 71260; 72125; 72170; 74177; 80053; 80305-QW; 81001; 82150; 85025; 85610; 86850; 86900; 86901; 93005; 96374; 96375; 96376; 97161-GP; 99285-25; A9270-GY; J0690; J2250; J2270; J3010; J3490; J7030; Q9967

== ENCOUNTER 2022-03-19 08:50 | Emergency (ER) | payer MEDICARE, OTHER ==
[2022-03-19] MEDS ORDERED: Ondansetron 4 MG Tab.DIS PO ONE (10:15)
[2022-03-19] MEDS ORDERED: Sodium Chloride 0.9% 500 ML IV ONE (10:29)
[2022-03-19] MEDS ORDERED: Sodium Chloride 0.9% 10 ML Syringe FLUSH PRN (10:29)
[2022-03-19] MEDS ORDERED: Sodium Chloride 0.9% 1,000 ML IV ONE (10:29)
[2022-03-19] MEDS ORDERED: Ondansetron 4 MG/2 ML SDV IVPUSH ONE (10:29)
[2022-03-19 19:00] VITALS: BP 123/70; PULSE 70
== END 2022-03-19 13:37 | disposition home or self-care (01) ==
LOC: CC.ED 08:50
DX: R04.0 Epistaxis (principal); I48.91 Unspecified atrial fibrillation; K21.9 Gastro-esophageal reflux disease without esophagitis; N40.0 Benign prostatic hyperplasia without lower urinary tract symptoms; E66.9 Obesity, unspecified; Z95.0 Presence of cardiac pacemaker; Z88.0 Allergy status to penicillin; Z88.1 Allergy status to other antibiotic agents; Z79.02 Long term (current) use of antithrombotics/antiplatelets; Z79.899 Other long term (current) drug therapy; Z79.01 Long term (current) use of anticoagulants; Z68.33 Body mass index [BMI] 33.0-33.9, adult
CPT/HCPCS: 30901; 30905; 36415; 85025; 85610; 96361; 96374; 99283; 99283-25; A9270-GY; J2405; J7030

== ENCOUNTER 2022-03-20 15:50 | Observation (INO) | payer MEDICARE, OTHER ==
[2022-03-20] MEDS ORDERED: Sodium Chloride 0.65% Nasal Spray 45 ML Bottle NAS ONE (16:25)
[2022-03-20 16:58] LABS: CHLORIDE,CL 95 mEq/L (98-106); ESTIMATED GFR 89 mL/min (>=60); SODIUM,NA 132 mEq/L (136-145)
[2022-03-20 17:04] LABS: PTT,PARTIAL THROMBOPLSTIN TIME 26.5 SEC (23.2-32.3)
[2022-03-20] MEDS ORDERED: Sodium Chloride 0.9% 1,000 ML IV ONE (17:08)
[2022-03-20] MEDS ORDERED: Sodium Chloride 0.9% 1,000 ML ONE (17:41)
[2022-03-20] MEDS ORDERED: Ondansetron 4 MG Tab.DIS PO PRN (18:14)
[2022-03-20] MEDS ORDERED: Acetaminophen 325 MG Tab PO PRN (18:14)
[2022-03-20] MEDS ORDERED: Water For Injection, Sterile 10 ML SDV INJECT ONE (18:26)
[2022-03-20] MEDS ORDERED: Gabapentin 100 MG Cap PO SCH (20:00)
[2022-03-20] MEDS ORDERED: CARBAMAZEPINE 100 MG PO SCH (20:00)
[2022-03-20] MEDS ORDERED: Tamsulosin 0.4 MG Cap.ER PO SCH (20:00)
[2022-03-20] MEDS ORDERED: LORazepam 0.5 MG Tab PO ONE (20:16)
[2022-03-20] MEDS ORDERED: cloNIDine 0.1 MG Tab PO SCH (21:15)
[2022-03-20] MEDS ORDERED: Tranexamic Acid 1,000 MG in Sodium Chloride 0.9% 100 ML IV ONE (21:23)
[2022-03-21 00:07] VITALS: BP 172/90; PULSE 69
[2022-03-21] MEDS ORDERED: Pantoprazole 40 MG Tab.CR PO SCH (07:00)
[2022-03-21] MEDS ORDERED: Gabapentin 100 MG Cap PO SCH (08:00)
[2022-03-21] MEDS ORDERED: Clopidogrel 75 MG Tab PO SCH (08:00)
[2022-03-21] MEDS ORDERED: Non-Formulary Medication 1 Each (Sitagliptin 100 MG Tablet) PO SCH (08:00)
[2022-03-21] MEDS ORDERED: Losartan 100 MG Tab PO SCH (08:00)
[2022-03-21] MEDS ORDERED: PARoxetine 20 MG Tab PO SCH (12:00)
[2022-03-21] MEDS ORDERED: amLODIPine 2.5 MG Tab PO SCH (12:00)
== END 2022-03-20 23:45 | disposition critical access hospital (66) ==
LOC: CC.ED 16:11 → UNDOADMOB 17:22 → CC.MS 17:22 → UNDOADMOB 18:01 → CC.MS 18:01 → UNDODISOB 23:45
PROVIDERS: ADMIT Nurse Practitioner Family; ATTEND Nurse Practitioner Family
DX: R04.0 Epistaxis (principal); R55 Syncope and collapse; K21.9 Gastro-esophageal reflux disease without esophagitis; I48.91 Unspecified atrial fibrillation; M19.90 Unspecified osteoarthritis, unspecified site; G40.909 Epilepsy, unspecified, not intractable, without status epilepticus; F32.A Depression, unspecified; E66.9 Obesity, unspecified; Z68.30 Body mass index [BMI] 30.0-30.9, adult; Z88.1 Allergy status to other antibiotic agents; Z96.659 Presence of unspecified artificial knee joint; Z79.899 Other long term (current) drug therapy
CPT/HCPCS: 30905; 36415; 80053; 85025; 85610; 85730; 96360; 96361; 96374; 99284-25; A9270-GY; G0378; J7030

== ENCOUNTER 2022-03-22 23:33 | Observation (INO) | payer MEDICARE, OTHER ==
[2022-03-23] MEDS ORDERED: Mupirocin Oint 22 GM Tube TOP ONE (00:16)
[2022-03-23] MEDS: Sodium Chloride 0.65% Nasal Spray 45 ML Bottle NAS SCH ×7 (00:26→13:35)
[2022-03-23] MEDS ORDERED: Oxymetazoline 0.05% Nasal Spray 30 ML Bottle NAS ONE (02:25)
[2022-03-23] MEDS ORDERED: cloNIDine 0.1 MG Tab PO STA (02:27)
[2022-03-23] MEDS ORDERED: LORazepam 0.5 MG Tab PO ONE (10:15)
[2022-03-23] MEDS ORDERED: Ondansetron 4 MG Tab.DIS PO PRN (12:13)
[2022-03-23] MEDS ORDERED: Acetaminophen 325 MG Tab PO PRN (12:13)
[2022-03-23] MEDS ORDERED: Oxymetazoline 0.05% Nasal Spray 30 ML Bottle NASRT ONE (13:00)
[2022-03-23] MEDS: Gabapentin 100 MG Cap *PTOM PO SCH (13:26)
[2022-03-23] MEDS: Mupirocin Oint 22 GM Tube TOP SCH ×2 (13:33→19:44)
[2022-03-23] MEDS: Sodium Chloride 0.65% Nasal Spray 45 ML Bottle NAS PRN (13:34)
[2022-03-23] MEDS: CARBAMAZEPINE 200 MG PO SCH (17:11)
[2022-03-23] MEDS: CARBAMAZEPINE 100 MG PO SCH (17:11)
[2022-03-23] MEDS ORDERED: Polyethylene Glycol 3350 Powder 17 GM Packet PO PRN (17:54)
[2022-03-23] MEDS: CLONAZEPAM 0.5 MG PO PRN (18:11)
[2022-03-23] MEDS: Gabapentin 100 MG Cap **PTOM PO SCH (19:42)
[2022-03-23] MEDS: Tamsulosin 0.4 MG Cap.ER **PTOM PO SCH (19:44)
[2022-03-24] MEDS: Mupirocin Oint 22 GM Tube TOP SCH ×3 (07:55→20:33)
[2022-03-24] MEDS: Sodium Chloride 0.65% Nasal Spray 45 ML Bottle NAS PRN ×2 (07:55→20:04)
[2022-03-24] MEDS: CARBAMAZEPINE 100 MG PO SCH ×2 (07:59→18:10)
[2022-03-24] MEDS: CARBAMAZEPINE 200 MG PO SCH ×2 (08:00→18:11)
[2022-03-24] MEDS: SITAGLIPTIN 100 MG PO SCH (08:02)
[2022-03-24] MEDS: Losartan 100 MG Tab **PTOM PO SCH (08:03)
[2022-03-24] MEDS: Gabapentin 100 MG Cap *PTOM PO SCH ×2 (08:05→14:54)
[2022-03-24] MEDS ORDERED: AMLODIPINE 5 MG PO SCH (17:30)
[2022-03-24] MEDS ORDERED: PAROXETINE HCL 40 MG PO SCH (17:30)
[2022-03-24] MEDS: Tamsulosin 0.4 MG Cap.ER **PTOM PO SCH (19:58)
[2022-03-24] MEDS: Gabapentin 100 MG Cap **PTOM PO SCH (20:01)
[2022-03-24] MEDS: CLONAZEPAM 0.5 MG PO PRN (21:21)
[2022-03-25] MEDS: CARBAMAZEPINE 100 MG PO SCH (07:42)
[2022-03-25] MEDS: Losartan 100 MG Tab **PTOM PO SCH (07:43)
[2022-03-25] MEDS: CARBAMAZEPINE 200 MG PO SCH (07:43)
[2022-03-25 07:45] VITALS: BP 152/85
[2022-03-25] MEDS: SITAGLIPTIN 100 MG PO SCH (07:45)
[2022-03-25] MEDS: CLONAZEPAM 0.5 MG PO PRN (07:46)
[2022-03-25] MEDS: Gabapentin 100 MG Cap *PTOM PO SCH (07:46)
[2022-03-25] MEDS: Mupirocin Oint 22 GM Tube TOP SCH (07:47)
[2022-03-25 08:51] VITALS: PULSE 73
== END 2022-03-25 10:40 | disposition home or self-care (01) ==
LOC: CC.ED 23:33 → SUPCPDRO 23:33 → CC.MS 03-23 12:00
PROVIDERS: ADMIT Nurse Practitioner Family; ATTEND Nurse Practitioner Family
DX: I10 Essential (primary) hypertension (principal); K21.9 Gastro-esophageal reflux disease without esophagitis; E66.9 Obesity, unspecified; M19.90 Unspecified osteoarthritis, unspecified site; J30.9 Allergic rhinitis, unspecified; N40.0 Benign prostatic hyperplasia without lower urinary tract symptoms; Z79.899 Other long term (current) drug therapy; Z88.0 Allergy status to penicillin; Z88.1 Allergy status to other antibiotic agents; Z96.653 Presence of artificial knee joint, bilateral
CPT/HCPCS: 36415; 80053; 85014; 85018; 85025; 99217; 99220; 99225; 99284; A9270-GY; G0378

== ENCOUNTER 2022-03-26 08:58 | Emergency (ER) | payer MEDICARE, OTHER ==
[2022-03-26 09:27] VITALS: BP 122/78; PULSE 64
== END 2022-03-26 12:03 | disposition home or self-care (01) ==
LOC: CC.ED 08:58
DX: R04.0 Epistaxis (principal); I48.91 Unspecified atrial fibrillation; K21.9 Gastro-esophageal reflux disease without esophagitis; M19.90 Unspecified osteoarthritis, unspecified site; E66.9 Obesity, unspecified; Z68.33 Body mass index [BMI] 33.0-33.9, adult; Z88.1 Allergy status to other antibiotic agents; Z88.0 Allergy status to penicillin; Z79.01 Long term (current) use of anticoagulants; Z79.02 Long term (current) use of antithrombotics/antiplatelets; Z79.899 Other long term (current) drug therapy
CPT/HCPCS: 30901; 99283; 99284

== ENCOUNTER 2022-04-04 14:24 | Inpatient (IN) | payer MEDICARE, OTHER ==
[2022-04-04 14:52] LABS: CHLORIDE,CL 91 mEq/L (98-106); SODIUM,NA 127 mEq/L (136-145)
[2022-04-04 15:08] LABS: ESTIMATED GFR 89 mL/min (>=60)
[2022-04-04] MEDS ORDERED: Acetaminophen 325 MG Tab PO ONE (16:39)
[2022-04-04] MEDS ORDERED: Aluminum Hydroxide/Magnesium Hydroxide/Simethicone Susp 30 ML Cup PO PRN (17:25)
[2022-04-04] MEDS ORDERED: Docusate Sodium 100 MG Cap PO PRN (17:25)
[2022-04-04] MEDS ORDERED: Sodium Chloride 0.65% Nasal Spray 45 ML Bottle NAS PRN (17:31)
[2022-04-04] MEDS ORDERED: Ondansetron 4 MG/2 ML SDV IVPUSH PRN (17:44)
[2022-04-04] MEDS ORDERED: Sodium Chloride 0.9% 10 ML Syringe FLUSH PRN (17:46)
[2022-04-04] MEDS ORDERED: Sodium Chloride 0.9% 1,000 ML IV ONE (17:46)
[2022-04-04] MEDS ORDERED: ClonazePAM 1 MG Tab PO PRN (18:09)
[2022-04-04] MEDS: Levofloxacin/Dextrose 5%-Water 750 MG in Premix Bag 1 BAG IV SCH (18:16)
[2022-04-04] MEDS: Mupirocin Oint 22 GM Tube TOP SCH (20:16)
[2022-04-04] MEDS: Apixaban 5 MG Tab PO SCH (20:20)
[2022-04-04] MEDS: Tamsulosin 0.4 MG Cap.ER PO SCH (20:20)
[2022-04-04] MEDS: Gabapentin 100 MG Cap PO SCH (20:20)
[2022-04-04] MEDS ORDERED: carBAMazepine 200 MG Tab PO ONE (21:00)
[2022-04-05] MEDS: Acetaminophen 325 MG Tab PO PRN ×2 (00:13→16:28)
[2022-04-05] MEDS ORDERED: Acetaminophen 325 MG Tab PO ONE (01:10)
[2022-04-05] MEDS: Pantoprazole 40 MG Tab.CR PO SCH (06:06)
[2022-04-05] MEDS: Apixaban 5 MG Tab PO SCH ×2 (08:44→19:31)
[2022-04-05] MEDS: Gabapentin 100 MG Cap PO SCH ×3 (08:44→19:32)
[2022-04-05] MEDS: Losartan 100 MG Tab PO SCH (08:44)
[2022-04-05] MEDS: Clopidogrel 75 MG Tab PO SCH (08:44)
[2022-04-05] MEDS: amLODIPine 2.5 MG Tab PO SCH (08:44)
[2022-04-05] MEDS: Mupirocin Oint 22 GM Tube TOP SCH ×3 (08:46→22:51)
[2022-04-05] MEDS: CARBAMAZEPINE 200 MG PO SCH ×2 (09:57→17:23)
[2022-04-05] MEDS: CARBAMAZEPINE 100 MG PO SCH ×2 (09:58→17:22)
[2022-04-05] MEDS: PARoxetine 20 MG Tab PO SCH (12:21)
[2022-04-05] MEDS: Levofloxacin/Dextrose 5%-Water 750 MG in Premix Bag 1 BAG IV SCH (17:57)
[2022-04-05] MEDS: Tamsulosin 0.4 MG Cap.ER PO SCH (19:31)
[2022-04-06] MEDS: Acetaminophen 325 MG Tab PO PRN (00:13)
[2022-04-06] MEDS: Pantoprazole 40 MG Tab.CR PO SCH (07:30)
[2022-04-06] MEDS: amLODIPine 2.5 MG Tab PO SCH (07:31)
[2022-04-06] MEDS: Clopidogrel 75 MG Tab PO SCH (07:31)
[2022-04-06] MEDS: CARBAMAZEPINE 200 MG PO SCH (07:31)
[2022-04-06] MEDS: Gabapentin 100 MG Cap PO SCH ×2 (07:31→11:58)
[2022-04-06] MEDS: Losartan 100 MG Tab PO SCH (07:31)
[2022-04-06] MEDS: Mupirocin Oint 22 GM Tube TOP SCH (07:32)
[2022-04-06] MEDS: Apixaban 5 MG Tab PO SCH (07:32)
[2022-04-06] MEDS: CARBAMAZEPINE 100 MG PO SCH (07:32)
[2022-04-06 11:48] VITALS: PULSE 71
[2022-04-06] MEDS: PARoxetine 20 MG Tab PO SCH (11:58)
[2022-04-06 12:21] VITALS: BP 129/65
== END 2022-04-06 13:25 | disposition home or self-care (01) | DRG 728 ==
LOC: CC.MS 14:24 → CC.FCMC 14:24 → CC.MS 15:55 → UNDOADMIN 15:55 → CC.MS 17:25
PROVIDERS: ADMIT Family Medicine; ATTEND Nurse Practitioner Family
DX: N41.0 Acute prostatitis (principal); N39.0 Urinary tract infection, site not specified; E87.1 Hypo-osmolality and hyponatremia; G40.909 Epilepsy, unspecified, not intractable, without status epilepticus; F41.9 Anxiety disorder, unspecified; K21.9 Gastro-esophageal reflux disease without esophagitis; I50.9 Heart failure, unspecified; I11.0 Hypertensive heart disease with heart failure; R04.0 Epistaxis; R31.9 Hematuria, unspecified; I08.0 Rheumatic disorders of both mitral and aortic valves; N40.0 Benign prostatic hyperplasia without lower urinary tract symptoms; N32.81 Overactive bladder; M19.90 Unspecified osteoarthritis, unspecified site; E11.65 Type 2 diabetes mellitus with hyperglycemia; F32.A Depression, unspecified; E66.9 Obesity, unspecified; I48.91 Unspecified atrial fibrillation; Z95.0 Presence of cardiac pacemaker; Z88.1 Allergy status to other antibiotic agents; Z79.899 Other long term (current) drug therapy; Z79.02 Long term (current) use of antithrombotics/antiplatelets; Z79.01 Long term (current) use of anticoagulants; Z88.0 Allergy status to penicillin; Z88.8 Allergy status to other drugs, medicaments and biological substances
CPT/HCPCS: 36415; 80053; 81001; 85025; 86140; 87040; 87086; 87088; 87186; A9270-GY; J1956; J2405; J7030

== ENCOUNTER 2022-05-11 07:24 | Emergency (ER) | payer MEDICARE, OTHER ==
[2022-05-11 07:36] VITALS: BP 158/85; PULSE 79
[2022-05-11] MEDS: Alum Hydrox/Mag Hydrox/Simeth 30 ML, Lidocaine 2% 15 ML PO ONE ×2 (07:44)
== END 2022-05-11 09:38 | disposition home or self-care (01) ==
LOC: CC.ED 07:24
DX: K59.00 Constipation, unspecified (principal); I48.91 Unspecified atrial fibrillation; K21.9 Gastro-esophageal reflux disease without esophagitis; E66.9 Obesity, unspecified; Z68.34 Body mass index [BMI] 34.0-34.9, adult; Z79.01 Long term (current) use of anticoagulants; Z79.899 Other long term (current) drug therapy; Z88.0 Allergy status to penicillin; Z88.1 Allergy status to other antibiotic agents; Z79.02 Long term (current) use of antithrombotics/antiplatelets
CPT/HCPCS: 74019; 99283; 99284; A9270-GY

== ENCOUNTER 2023-01-08 13:29 | Observation (INO) | payer MEDICARE, OTHER ==
[2023-01-08 13:53] LABS: BASOPHILS ABSOLUTE AUTO 0.03 10^3/uL (0.00-0.50); BASOPHILS PERCENT AUTO 0.4 % (0-1); EOSINOPHILS ABSOLUTE AUTO 0.22 10^3/uL (0.00-1.50); EOSINOPHILS PERCENT AUTO 2.7 % (0-6); HEMATOCRIT 34.4 % (42.0-52.0); HEMOGLOBIN 11.8 g/dL (14.0-18.0); IMMATURE GRAN ABSOLUTE AUTO 0.03 10^3/uL (0.00-0.49); IMMATURE GRAN PERCENT AUTO 0.4 % (0.0-4.9); LYMPHOCYTES ABSOLUTE AUTO 0.85 10^3/uL (0.60-5.00); LYMPHOCYTES PERCENT AUTO 10.5 % (24-44); MEAN CORPUSCULAR HEMOGLOBIN 28.9 pg (27.0-32.0); MEAN CORPUSCULAR HGB CONC 34.3 g/dL (32.0-36.0); MEAN CORPUSCULAR VOLUME 84.1 fL (83.0-97.0); MONOCYTES ABSOLUTE AUTO 0.79 10^3/uL (0.00-1.50); MONOCYTES PERCENT AUTO 9.8 % (0-10); NEUTROPHILS ABSOLUTE AUTO 6.17 x10^3/uL (1.80-8.00); NEUTROPHILS PERCENT AUTO 76.2 % (41-71); PLATELET COUNT,PLT 214 10^3/uL (150-400); RED BLOOD CELL COUNT 4.09 x10^6/uL (4.50-6.00); WHITE BLOOD CELL COUNT,WBC 8.1 10^3/uL (4.0-11.0)
[2023-01-08 14:10] LABS: ALANINE AMINOTRANSFERASE,ALT 16 U/L (12-78); ALBUMIN 3.4 g/dL (3.4-5.0); ALKALINE PHOSPHATASE 162 U/L (46-116); ASPARTATE AMNIOTRANSFERASE,AST 17 U/L (15-37); BILIRUBIN TOTAL 0.3 mg/dL (0.0-1.0); BLOOD UREA NITROGEN,BUN 13 mg/dL (7-18); C-REACTIVE PROTEIN 2.04 mg/dL (<=0.30); CALCIUM 9.3 mg/dL (8.4-10.1); CARBON DIOXIDE,CO2 26 mmol/L (21-32); CHLORIDE,CL 93 mEq/L (98-106); CREATININE 0.8 mg/dL (0.7-1.3); GLUCOSE RANDOM 121 mg/dL (75-99); POTASSIUM,K 4.5 mEq/L (3.5-5.0); PROTEIN TOTAL,TP 7.6 g/dL (6.4-8.2); SODIUM,NA 127 mEq/L (136-145)
[2023-01-08 14:13] LABS: ESTIMATED GFR 92 mL/min (>=60)
[2023-01-08 14:29] LABS: APPEARANCE,URINE CLEAR (CLEAR); BILIRUBIN,URINE NEGATIVE (NEGATIVE); COLOR,URINE YELLOW (YELLOW); GLUCOSE,URINE NEGATIVE (NEGATIVE); KETONES,URINE NEGATIVE (NEGATIVE); LEUKOCYTE ESTERASE,URINE MODERATE (NEGATIVE); NITRITE,URINE NEGATIVE (NEGATIVE); OCCULT BLOOD,URINE TRACE-INTACT (NEGATIVE); PROTEIN,URINE 100 mg/dL (NEGATIVE); UROBILINOGEN,URINE 0.2 EU/dL (0.2-1.0)
[2023-01-08 14:36] LABS: EPITHELIAL CELLS,URINE NOT SEEN /HPF (NOT SEEN); WBC,URINE 40-50 /HPF (0-5)
[2023-01-08 14:37] LABS: BACTERIA,URINE OCCASIONAL /HPF (NOT SEEN); MUCUS,URINE OCCASIONAL /HPF (NOT SEEN)
[2023-01-08] MEDS ORDERED: Ondansetron 4 MG Tab.DIS PO PRN (15:00)
[2023-01-08] MEDS ORDERED: Sodium Chloride 0.9% 1,000 ML IV SCH (15:00)
[2023-01-08] MEDS ORDERED: Sodium Chloride 0.9% 10 ML Syringe FLUSH PRN (15:00)
[2023-01-08] MEDS ORDERED: Polyethylene Glycol 3350 Powder 17 GM Packet PO PRN (15:00)
[2023-01-08] MEDS ORDERED: Docusate Sodium 100 MG Cap PO PRN (15:00)
[2023-01-08] MEDS ORDERED: Ondansetron 4 MG/2 ML SDV IV PRN (15:00)
[2023-01-08] MEDS ORDERED: Take Home: LORazepam 0.5 MG Tab, 2 Tab Pack PO PRN (15:23)
[2023-01-08] MEDS ORDERED: ClonazePAM 1 MG Tab PO PRN (15:58)
[2023-01-08] MEDS ORDERED: cefTRIAXone 1 GM Vial IVPUSH SCH (16:00)
[2023-01-08] MEDS ORDERED: diphenhydrAMINE 50 MG/ML SDV IVPUSH PRN (16:13)
[2023-01-08] MEDS: Gabapentin 100 MG Cap PO SCH (19:51)
[2023-01-08] MEDS: Apixaban 5 MG Tab PO SCH (19:52)
[2023-01-08] MEDS: Tamsulosin 0.4 MG Cap.ER PO SCH (19:52)
[2023-01-08] MEDS ORDERED: carBAMazepine 200 MG Tab PO ONE (20:00)
[2023-01-08] MEDS: Acetaminophen 325 MG Tab PO PRN (20:22)
[2023-01-09] MEDS: Acetaminophen 325 MG Tab PO PRN (04:18)
[2023-01-09] MEDS: Pantoprazole 40 MG Tab.CR PO SCH (06:20)
[2023-01-09] MEDS: Ciprofloxacin 500 MG Tab PO SCH ×2 (06:20→18:38)
[2023-01-09] MEDS: Furosemide 40 MG Tab PO SCH (07:31)
[2023-01-09] MEDS: Losartan 100 MG Tab PO SCH (07:31)
[2023-01-09 07:32] LABS: BASOPHILS ABSOLUTE AUTO 0.02 10^3/uL (0.00-0.50); BASOPHILS PERCENT AUTO 0.3 % (0-1); EOSINOPHILS ABSOLUTE AUTO 0.21 10^3/uL (0.00-1.50); EOSINOPHILS PERCENT AUTO 3.1 % (0-6); HEMATOCRIT 33.6 % (42.0-52.0); HEMOGLOBIN 11.7 g/dL (14.0-18.0); IMMATURE GRAN ABSOLUTE AUTO 0.01 10^3/uL (0.00-0.49); IMMATURE GRAN PERCENT AUTO 0.1 % (0.0-4.9); LYMPHOCYTES ABSOLUTE AUTO 0.79 10^3/uL (0.60-5.00); LYMPHOCYTES PERCENT AUTO 11.5 % (24-44); MEAN CORPUSCULAR HGB CONC 34.8 g/dL (32.0-36.0); MEAN CORPUSCULAR VOLUME 83.4 fL (83.0-97.0); MONOCYTES PERCENT AUTO 8.8 % (0-10); NEUTROPHILS ABSOLUTE AUTO 5.21 x10^3/uL (1.80-8.00); NEUTROPHILS PERCENT AUTO 76.2 % (41-71); PLATELET COUNT,PLT 208 10^3/uL (150-400); RED BLOOD CELL COUNT 4.03 x10^6/uL (4.50-6.00); WHITE BLOOD CELL COUNT,WBC 6.8 10^3/uL (4.0-11.0)
[2023-01-09] MEDS: amLODIPine 10 MG Tab PO SCH (07:32)
[2023-01-09] MEDS: Gabapentin 100 MG Cap PO SCH ×3 (07:32→20:05)
[2023-01-09] MEDS: Apixaban 5 MG Tab PO SCH ×2 (07:33→20:05)
[2023-01-09] MEDS: Clopidogrel 75 MG Tab PO SCH (07:33)
[2023-01-09 07:58] LABS: C-REACTIVE PROTEIN 1.88 mg/dL (<=0.30); CALCIUM 8.8 mg/dL (8.4-10.1); CREATININE 0.7 mg/dL (0.7-1.3); EST CRCL DRUG DOSING (CG) 98.54 mL/min; POTASSIUM,K 4.5 mEq/L (3.5-5.0)
[2023-01-09] MEDS: CARBAMAZEPINE 100 MG PO SCH ×2 (08:43→20:06)
[2023-01-09] MEDS: CARBAMAZEPINE 200 MG PO SCH ×2 (08:45→20:06)
[2023-01-09] MEDS ORDERED: Sodium Chloride 1 GM Tab PO ONE (11:00)
[2023-01-09] MEDS ORDERED: PARoxetine 20 MG Tab PO SCH (20:00)
[2023-01-09] MEDS: Tamsulosin 0.4 MG Cap.ER PO SCH (20:05)
[2023-01-10] MEDS: Ciprofloxacin 500 MG Tab PO SCH (06:45)
[2023-01-10] MEDS: Pantoprazole 40 MG Tab.CR PO SCH (06:45)
[2023-01-10] MEDS: amLODIPine 10 MG Tab PO SCH (07:33)
[2023-01-10] MEDS: Apixaban 5 MG Tab PO SCH (07:33)
[2023-01-10] MEDS: Clopidogrel 75 MG Tab PO SCH (07:33)
[2023-01-10 07:34] VITALS: BP 163/92
[2023-01-10] MEDS: Losartan 100 MG Tab PO SCH (07:34)
[2023-01-10] MEDS: Gabapentin 100 MG Cap PO SCH (07:34)
[2023-01-10] MEDS: Furosemide 40 MG Tab PO SCH (07:34)
[2023-01-10 07:36] VITALS: PULSE 70
[2023-01-10 07:45] LABS: BASOPHILS ABSOLUTE AUTO 0.02 10^3/uL (0.00-0.50); BASOPHILS PERCENT AUTO 0.3 % (0-1); EOSINOPHILS ABSOLUTE AUTO 0.24 10^3/uL (0.00-1.50); EOSINOPHILS PERCENT AUTO 4.1 % (0-6); HEMATOCRIT 36.4 % (42.0-52.0); HEMOGLOBIN 12.6 g/dL (14.0-18.0); IMMATURE GRAN ABSOLUTE AUTO 0.02 10^3/uL (0.00-0.49); IMMATURE GRAN PERCENT AUTO 0.3 % (0.0-4.9); LYMPHOCYTES PERCENT AUTO 11.9 % (24-44); MEAN CORPUSCULAR HEMOGLOBIN 28.8 pg (27.0-32.0); MEAN CORPUSCULAR HGB CONC 34.6 g/dL (32.0-36.0); MEAN CORPUSCULAR VOLUME 83.1 fL (83.0-97.0); MONOCYTES ABSOLUTE AUTO 0.68 10^3/uL (0.00-1.50); MONOCYTES PERCENT AUTO 11.6 % (0-10); NEUTROPHILS ABSOLUTE AUTO 4.22 x10^3/uL (1.80-8.00); NEUTROPHILS PERCENT AUTO 71.8 % (41-71); PLATELET COUNT,PLT 228 10^3/uL (150-400); RED BLOOD CELL COUNT 4.38 x10^6/uL (4.50-6.00); WHITE BLOOD CELL COUNT,WBC 5.9 10^3/uL (4.0-11.0)
[2023-01-10 07:53] LABS: C-REACTIVE PROTEIN 1.94 mg/dL (<=0.30); CALCIUM 9.2 mg/dL (8.4-10.1); CREATININE 0.8 mg/dL (0.7-1.3); EST CRCL DRUG DOSING (CG) 86.22 mL/min; POTASSIUM,K 4.2 mEq/L (3.5-5.0)
[2023-01-10] MEDS: CARBAMAZEPINE 100 MG PO SCH (08:14)
[2023-01-10] MEDS: CARBAMAZEPINE 200 MG PO SCH (08:14)
== END 2023-01-10 10:46 | disposition home or self-care (01) ==
LOC: CC.FCMC 13:29 → CC.MS 13:29 → UNDOADMOB 14:53 → CC.MS 15:00
PROVIDERS: ADMIT Nurse Practitioner Family; ATTEND Nurse Practitioner Family
DX: N30.01 Acute cystitis with hematuria (principal); E87.1 Hypo-osmolality and hyponatremia; R41.0 Disorientation, unspecified; R53.1 Weakness; R47.81 Slurred speech; Z79.02 Long term (current) use of antithrombotics/antiplatelets; Z79.899 Other long term (current) drug therapy
CPT/HCPCS: 36415; 70450; 80048; 80053; 81001; 82947; 83735; 83880; 85025; 86140; 87086; 87088; 87186; 96374; 96375; 97161-GP; 99223; 99233; 99239; A9270-GY; G0378; J0696; J1200; J7030

== ENCOUNTER 2023-03-15 13:46 | Observation (INO) | payer MEDICARE, OTHER ==
[2023-03-15 14:23] LABS: BASOPHILS ABSOLUTE AUTO 0.03 10^3/uL (0.00-0.50); BASOPHILS PERCENT AUTO 0.3 % (0-1); EOSINOPHILS ABSOLUTE AUTO 0.41 10^3/uL (0.00-1.50); EOSINOPHILS PERCENT AUTO 4.8 % (0-6); HEMATOCRIT 34.9 % (42.0-52.0); HEMOGLOBIN 11.6 g/dL (14.0-18.0); IMMATURE GRAN ABSOLUTE AUTO 0.04 10^3/uL (0.00-0.49); IMMATURE GRAN PERCENT AUTO 0.5 % (0.0-4.9); LYMPHOCYTES ABSOLUTE AUTO 0.73 10^3/uL (0.60-5.00); LYMPHOCYTES PERCENT AUTO 8.5 % (24-44); MEAN CORPUSCULAR HEMOGLOBIN 27.4 pg (27.0-32.0); MEAN CORPUSCULAR HGB CONC 33.2 g/dL (32.0-36.0); MEAN CORPUSCULAR VOLUME 82.5 fL (83.0-97.0); MONOCYTES ABSOLUTE AUTO 0.81 10^3/uL (0.00-1.50); MONOCYTES PERCENT AUTO 9.4 % (0-10); NEUTROPHILS PERCENT AUTO 76.5 % (41-71); PLATELET COUNT,PLT 248 10^3/uL (150-400); RED BLOOD CELL COUNT 4.23 x10^6/uL (4.50-6.00); WHITE BLOOD CELL COUNT,WBC 8.6 10^3/uL (4.0-11.0)
[2023-03-15 14:41] LABS: LACTIC ACID 1.8 mmol/L (0.4-2.0)
[2023-03-15 14:42] LABS: ALBUMIN 3.6 g/dL (3.4-5.0); BILIRUBIN TOTAL 0.3 mg/dL (0.0-1.0); C-REACTIVE PROTEIN 1.75 mg/dL (<=0.30); CALCIUM 9.2 mg/dL (8.4-10.1); CREATININE 0.8 mg/dL (0.7-1.3); EST CRCL DRUG DOSING (CG) 84.88 mL/min; POTASSIUM,K 4.2 mEq/L (3.5-5.0); PROTEIN TOTAL,TP 7.8 g/dL (6.4-8.2)
[2023-03-15 14:56] LABS: CORONAVIRUS COVID-19 NAA NEGATIVE (NEGATIVE); INFLUENZA A NAA NEGATIVE (NEGATIVE); INFLUENZA B NAA NEGATIVE (NEGATIVE); RESPIRATORY SYNCYTIAL VIR NAA NEGATIVE (NEGATIVE)
[2023-03-15] MEDS: Sodium Chloride 0.9% 1,000 ML IV SCH (15:30)
[2023-03-15] MEDS ORDERED: Ondansetron 4 MG Tab.DIS PO PRN (16:20)
[2023-03-15] MEDS ORDERED: Ondansetron 4 MG/2 ML SDV IV PRN (16:20)
[2023-03-15] MEDS ORDERED: Acetaminophen 325 MG Tab PO PRN (16:20)
[2023-03-15] MEDS ORDERED: Sodium Chloride 1 GM Tab PO ONE (16:20)
[2023-03-15 16:27] LABS: APPEARANCE,URINE CLEAR (CLEAR); BILIRUBIN,URINE NEGATIVE (NEGATIVE); COLOR,URINE YELLOW (YELLOW); GLUCOSE,URINE 250 mg/dL (NEGATIVE); KETONES,URINE NEGATIVE (NEGATIVE); LEUKOCYTE ESTERASE,URINE NEGATIVE (NEGATIVE); NITRITE,URINE NEGATIVE (NEGATIVE); OCCULT BLOOD,URINE NEGATIVE (NEGATIVE); PROTEIN,URINE 30 mg/dL (NEGATIVE); UROBILINOGEN,URINE 0.2 EU/dL (0.2-1.0)
[2023-03-15 16:33] LABS: AMPHETAMINES,URINE NEGATIVE (NEGATIVE); BARBITURATES,URINE NEGATIVE (NEGATIVE); BENZODIAZEPINE,URINE NEGATIVE (NEGATIVE); MDMA (ECSTASY), URINE NEGATIVE (NEGATIVE); METHADONE,URINE NEGATIVE (NEGATIVE); METHAMPHETAMINES,URINE NEGATIVE (NEGATIVE); OPIATES,URINE NEGATIVE (NEGATIVE); OXYCODONE,URINE NEGATIVE (NEGATIVE); PHENCYCLIDINE,URINE NEGATIVE (NEGATIVE); TCA,URINE NEGATIVE (NEGATIVE)
[2023-03-15 16:37] LABS: BACTERIA,URINE OCCASIONAL /HPF (NOT SEEN); EPITHELIAL CELLS,URINE OCCASIONAL /HPF (NOT SEEN); RBC,URINE 0-5 /HPF (0-5); WBC,URINE 0-5 /HPF (0-5)
[2023-03-15] MEDS: carBAMazepine 200 MG Tab PO SCH (19:22)
[2023-03-15] MEDS: Tamsulosin 0.4 MG Cap.ER PO SCH (19:22)
[2023-03-15] MEDS: Apixaban 5 MG Tab PO SCH (19:22)
[2023-03-15] MEDS: Sodium Chloride 1 GM Tab PO SCH (19:24)
[2023-03-15] MEDS: Gabapentin 100 MG Cap PO SCH (19:24)
[2023-03-15] MEDS ORDERED: CARBAMAZEPINE 100 MG PO SCH (20:00)
[2023-03-16] MEDS: Sodium Chloride 0.9% 1,000 ML IV SCH ×3 (02:00→22:23)
[2023-03-16] MEDS: Apixaban 5 MG Tab PO SCH ×2 (08:05→19:48)
[2023-03-16] MEDS: Clopidogrel 75 MG Tab PO SCH (08:06)
[2023-03-16] MEDS: amLODIPine 2.5 MG Tab PO SCH (08:06)
[2023-03-16] MEDS: carBAMazepine 200 MG Tab PO SCH ×2 (08:07→19:49)
[2023-03-16] MEDS: Losartan 100 MG Tab PO SCH (08:08)
[2023-03-16] MEDS: Gabapentin 100 MG Cap PO SCH ×3 (08:08→19:48)
[2023-03-16] MEDS: Pantoprazole 40 MG Tab.CR PO SCH (08:09)
[2023-03-16] MEDS: Sodium Chloride 1 GM Tab PO SCH ×2 (08:09→19:49)
[2023-03-16] MEDS: PARoxetine 20 MG Tab PO SCH (08:10)
[2023-03-16 08:21] LABS: ALBUMIN 2.9 g/dL (3.4-5.0); BILIRUBIN TOTAL 0.3 mg/dL (0.0-1.0); CALCIUM 8.6 mg/dL (8.4-10.1); CREATININE 0.7 mg/dL (0.7-1.3); EST CRCL DRUG DOSING (CG) 85.67 mL/min; POTASSIUM,K 4.1 mEq/L (3.5-5.0); PROTEIN TOTAL,TP 6.7 g/dL (6.4-8.2)
[2023-03-16 08:34] LABS: BASOPHILS ABSOLUTE AUTO 0.03 10^3/uL (0.00-0.50); BASOPHILS PERCENT AUTO 0.4 % (0-1); EOSINOPHILS ABSOLUTE AUTO 0.31 10^3/uL (0.00-1.50); EOSINOPHILS PERCENT AUTO 4.6 % (0-6); HEMATOCRIT 31.9 % (42.0-52.0); HEMOGLOBIN 10.4 g/dL (14.0-18.0); IMMATURE GRAN ABSOLUTE AUTO 0.03 10^3/uL (0.00-0.49); IMMATURE GRAN PERCENT AUTO 0.4 % (0.0-4.9); LYMPHOCYTES ABSOLUTE AUTO 0.76 10^3/uL (0.60-5.00); LYMPHOCYTES PERCENT AUTO 11.3 % (24-44); MEAN CORPUSCULAR HEMOGLOBIN 27.2 pg (27.0-32.0); MEAN CORPUSCULAR HGB CONC 32.6 g/dL (32.0-36.0); MEAN CORPUSCULAR VOLUME 83.5 fL (83.0-97.0); MONOCYTES ABSOLUTE AUTO 0.75 10^3/uL (0.00-1.50); MONOCYTES PERCENT AUTO 11.1 % (0-10); NEUTROPHILS ABSOLUTE AUTO 4.86 x10^3/uL (1.80-8.00); NEUTROPHILS PERCENT AUTO 72.2 % (41-71); PLATELET COUNT,PLT 219 10^3/uL (150-400); RED BLOOD CELL COUNT 3.82 x10^6/uL (4.50-6.00); WHITE BLOOD CELL COUNT,WBC 6.7 10^3/uL (4.0-11.0)
[2023-03-16] MEDS ORDERED: Polyethylene Glycol 3350 Powder 17 GM Packet PO ONE (11:00)
[2023-03-16] MEDS: Tamsulosin 0.4 MG Cap.ER PO SCH (19:48)
[2023-03-16] MEDS ORDERED: Melatonin 3 MG Tab PO PRN (22:14)
[2023-03-17] MEDS: Gabapentin 100 MG Cap PO SCH (07:55)
[2023-03-17] MEDS: carBAMazepine 200 MG Tab PO SCH (07:55)
[2023-03-17] MEDS: Losartan 100 MG Tab PO SCH (07:55)
[2023-03-17] MEDS: amLODIPine 2.5 MG Tab PO SCH (07:55)
[2023-03-17] MEDS: Pantoprazole 40 MG Tab.CR PO SCH (07:55)
[2023-03-17] MEDS: Apixaban 5 MG Tab PO SCH (07:56)
[2023-03-17] MEDS: PARoxetine 20 MG Tab PO SCH (07:56)
[2023-03-17] MEDS: Clopidogrel 75 MG Tab PO SCH (07:56)
[2023-03-17] MEDS: Sodium Chloride 1 GM Tab PO SCH (07:56)
[2023-03-17 07:57] VITALS: BP 149/77; PULSE 70
[2023-03-17 08:07] LABS: BASOPHILS ABSOLUTE AUTO 0.03 10^3/uL (0.00-0.50); BASOPHILS PERCENT AUTO 0.4 % (0-1); EOSINOPHILS ABSOLUTE AUTO 0.34 10^3/uL (0.00-1.50); EOSINOPHILS PERCENT AUTO 4.8 % (0-6); HEMATOCRIT 31.6 % (42.0-52.0); HEMOGLOBIN 10.2 g/dL (14.0-18.0); IMMATURE GRAN ABSOLUTE AUTO 0.03 10^3/uL (0.00-0.49); IMMATURE GRAN PERCENT AUTO 0.4 % (0.0-4.9); LYMPHOCYTES ABSOLUTE AUTO 0.73 10^3/uL (0.60-5.00); LYMPHOCYTES PERCENT AUTO 10.3 % (24-44); MEAN CORPUSCULAR HEMOGLOBIN 27.1 pg (27.0-32.0); MEAN CORPUSCULAR HGB CONC 32.3 g/dL (32.0-36.0); MONOCYTES ABSOLUTE AUTO 0.74 10^3/uL (0.00-1.50); MONOCYTES PERCENT AUTO 10.4 % (0-10); NEUTROPHILS ABSOLUTE AUTO 5.22 x10^3/uL (1.80-8.00); NEUTROPHILS PERCENT AUTO 73.7 % (41-71); PLATELET COUNT,PLT 215 10^3/uL (150-400); RED BLOOD CELL COUNT 3.76 x10^6/uL (4.50-6.00); WHITE BLOOD CELL COUNT,WBC 7.1 10^3/uL (4.0-11.0)
[2023-03-17 08:18] LABS: ALBUMIN 2.9 g/dL (3.4-5.0); BILIRUBIN TOTAL 0.3 mg/dL (0.0-1.0); CALCIUM 8.6 mg/dL (8.4-10.1); CREATININE 0.6 mg/dL (0.7-1.3); EST CRCL DRUG DOSING (CG) 99.95 mL/min; POTASSIUM,K 4.3 mEq/L (3.5-5.0); PROTEIN TOTAL,TP 6.8 g/dL (6.4-8.2)
== END 2023-03-17 10:18 | disposition home or self-care (01) ==
LOC: CC.ED 13:46 → CC.MS 15:59 → UNDOADMOB 15:59 → CC.MS 16:16
PROVIDERS: ADMIT Nurse Practitioner Family; ATTEND Nurse Practitioner Family
DX: E87.1 Hypo-osmolality and hyponatremia (principal); J01.90 Acute sinusitis, unspecified; K44.9 Diaphragmatic hernia without obstruction or gangrene; K21.9 Gastro-esophageal reflux disease without esophagitis; F32.A Depression, unspecified; E66.9 Obesity, unspecified; E78.00 Pure hypercholesterolemia, unspecified; I10 Essential (primary) hypertension; I48.91 Unspecified atrial fibrillation; Z68.30 Body mass index [BMI] 30.0-30.9, adult; Z79.899 Other long term (current) drug therapy; Z79.01 Long term (current) use of anticoagulants
CPT/HCPCS: 0241U; 36415; 71045; 80053; 80305; 81001; 83605; 83880; 84484; 85025; 86140; 87040; 87070; 87205; 93005; 99285; A9270; J7030; 93010

== ENCOUNTER 2023-05-14 12:10 | Inpatient (IN) | payer MEDICARE, OTHER ==
[2023-05-14 12:38] LABS: BASOPHILS ABSOLUTE AUTO 0.04 10^3/uL (0.00-0.50); BASOPHILS PERCENT AUTO 0.4 % (0-1); EOSINOPHILS ABSOLUTE AUTO 0.39 10^3/uL (0.00-1.50); EOSINOPHILS PERCENT AUTO 3.4 % (0-6); HEMATOCRIT 34.9 % (42.0-52.0); HEMOGLOBIN 11.5 g/dL (14.0-18.0); IMMATURE GRAN ABSOLUTE AUTO 0.03 10^3/uL (0.00-0.49); IMMATURE GRAN PERCENT AUTO 0.3 % (0.0-4.9); LYMPHOCYTES ABSOLUTE AUTO 0.79 10^3/uL (0.60-5.00); LYMPHOCYTES PERCENT AUTO 6.9 % (24-44); MEAN CORPUSCULAR HEMOGLOBIN 27.1 pg (27.0-32.0); MEAN CORPUSCULAR VOLUME 82.3 fL (83.0-97.0); MONOCYTES ABSOLUTE AUTO 1.13 10^3/uL (0.00-1.50); MONOCYTES PERCENT AUTO 9.9 % (0-10); NEUTROPHILS ABSOLUTE AUTO 9.01 x10^3/uL (1.80-8.00); NEUTROPHILS PERCENT AUTO 79.1 % (41-71); PLATELET COUNT,PLT 207 10^3/uL (150-400); RED BLOOD CELL COUNT 4.24 x10^6/uL (4.50-6.00); WHITE BLOOD CELL COUNT,WBC 11.4 10^3/uL (4.0-11.0)
[2023-05-14 12:48] LABS: APPEARANCE,URINE CLEAR (CLEAR); BILIRUBIN,URINE NEGATIVE (NEGATIVE); COLOR,URINE YELLOW (YELLOW); GLUCOSE,URINE NEGATIVE (NEGATIVE); KETONES,URINE NEGATIVE (NEGATIVE); LEUKOCYTE ESTERASE,URINE NEGATIVE (NEGATIVE); NITRITE,URINE NEGATIVE (NEGATIVE); OCCULT BLOOD,URINE NEGATIVE (NEGATIVE); PROTEIN,URINE 100 mg/dL (NEGATIVE); UROBILINOGEN,URINE 0.2 EU/dL (0.2-1.0)
[2023-05-14 12:55] LABS: AMPHETAMINES,URINE NEGATIVE (NEGATIVE); BARBITURATES,URINE NEGATIVE (NEGATIVE); BENZODIAZEPINE,URINE NEGATIVE (NEGATIVE); MDMA (ECSTASY), URINE NEGATIVE (NEGATIVE); METHADONE,URINE NEGATIVE (NEGATIVE); METHAMPHETAMINES,URINE NEGATIVE (NEGATIVE); OPIATES,URINE NEGATIVE (NEGATIVE); OXYCODONE,URINE NEGATIVE (NEGATIVE); PHENCYCLIDINE,URINE NEGATIVE (NEGATIVE); TCA,URINE NEGATIVE (NEGATIVE)
[2023-05-14 13:00] LABS: BILIRUBIN TOTAL 0.5 mg/dL (0.0-1.0); C-REACTIVE PROTEIN 17.8 mg/dL (<=0.50); CALCIUM 9.2 mg/dL (8.4-10.1); CREATININE 0.8 mg/dL (0.7-1.3); EST CRCL DRUG DOSING (CG) 89.91 mL/min; MAGNESIUM 1.8 mg/dL (1.8-2.4); POTASSIUM,K 4.1 mEq/L (3.5-5.0); PROTEIN TOTAL,TP 7.2 g/dL (6.4-8.2)
[2023-05-14 13:09] LABS: BACTERIA,URINE FEW /HPF (NOT SEEN); EPITHELIAL CELLS,URINE FEW /HPF (NOT SEEN); RBC,URINE 0-5 /HPF (0-5)
[2023-05-14] MEDS ORDERED: Docusate Sodium 100 MG Cap PO PRN (13:41)
[2023-05-14] MEDS ORDERED: Ondansetron 4 MG Tab.DIS PO PRN (13:41)
[2023-05-14] MEDS ORDERED: Polyethylene Glycol 3350 Powder 17 GM Packet PO PRN (13:41)
[2023-05-14] MEDS ORDERED: Acetaminophen 650 MG Supp RECTAL PRN (13:41)
[2023-05-14] MEDS ORDERED: Sodium Chloride 0.9% 10 ML Syringe FLUSH PRN (13:41)
[2023-05-14] MEDS ORDERED: Ondansetron 4 MG/2 ML SDV IV PRN (13:41)
[2023-05-14] MEDS ORDERED: Albuterol 0.083% 2.5 MG/3 ML Neb Soln NEB PRN (13:41)
[2023-05-14] MEDS: Levofloxacin/Dextrose 5%-Water 750 MG in Premix Bag 1 BAG IV SCH (15:05)
[2023-05-14] MEDS: Furosemide 40 MG/4 ML VIAL IVPUSH ONE (15:05)
[2023-05-14] MEDS: Albuterol/Ipratropium 3.0-0.5 MG/3 ML Neb Soln NEB SCH (15:43)
[2023-05-14] MEDS: Sodium Chloride 1 GM Tab PO ONE (15:44)
[2023-05-14] MEDS: predniSONE 20 MG Tab PO SCH (15:44)
[2023-05-14] MEDS: LORazepam 0.5 MG Tab PO ONE (18:20)
[2023-05-14] MEDS: carBAMazepine 100 MG Cap.ER PO SCH (18:20)
[2023-05-14] MEDS: Apixaban 5 MG Tab PO SCH (19:21)
[2023-05-14] MEDS: Tamsulosin 0.4 MG Cap.ER PO SCH (19:22)
[2023-05-14] MEDS: Sodium Chloride 1 GM Tab PO SCH (19:23)
[2023-05-14] MEDS ORDERED: CARBAMAZEPINE 200 MG PO SCH (20:00)
[2023-05-14] MEDS: Acetaminophen 325 MG Tab PO PRN (22:35)
[2023-05-14] MEDS: ClonazePAM 1 MG Tab PO PRN (22:36)
[2023-05-15] MEDS ORDERED: Furosemide 40 MG Tab PO PRN (08:00)
[2023-05-15] MEDS: Gabapentin 100 MG Cap PO SCH (10:05)
[2023-05-15] MEDS: Losartan 100 MG Tab PO SCH (10:06)
[2023-05-15] MEDS: Clopidogrel 75 MG Tab PO SCH (10:06)
[2023-05-15] MEDS: Pantoprazole 40 MG Tab.CR PO SCH (10:06)
[2023-05-15] MEDS: amLODIPine 10 MG Tab PO SCH (10:07)
[2023-05-15] MEDS: Aluminum Hydroxide/Magnesium Hydroxide/Simethicone Susp 30 ML Cup PO ONE (10:30)
[2023-05-15 11:21] LABS: POTASSIUM,K 3.7 mEq/L (3.5-5.0)
[2023-05-15 11:22] LABS: ALBUMIN 2.9 g/dL (3.4-5.0); BILIRUBIN TOTAL 0.3 mg/dL (0.0-1.0); CALCIUM 9.2 mg/dL (8.4-10.1); CREATININE 0.8 mg/dL (0.7-1.3); EST CRCL DRUG DOSING (CG) 89.91 mL/min; PROTEIN TOTAL,TP 7.4 g/dL (6.4-8.2)
[2023-05-15 11:24] LABS: C-REACTIVE PROTEIN 14.13 mg/dL (<=0.50)
[2023-05-15 11:27] LABS: BASOPHILS ABSOLUTE AUTO 0.01 10^3/uL (0.00-0.50); BASOPHILS PERCENT AUTO 0.1 % (0-1); EOSINOPHILS ABSOLUTE AUTO 0.11 10^3/uL (0.00-1.50); EOSINOPHILS PERCENT AUTO 0.9 % (0-6); HEMATOCRIT 33.7 % (42.0-52.0); HEMOGLOBIN 11.3 g/dL (14.0-18.0); IMMATURE GRAN ABSOLUTE AUTO 0.02 10^3/uL (0.00-0.49); IMMATURE GRAN PERCENT AUTO 0.2 % (0.0-4.9); LYMPHOCYTES ABSOLUTE AUTO 0.88 10^3/uL (0.60-5.00); LYMPHOCYTES PERCENT AUTO 7.2 % (24-44); MEAN CORPUSCULAR HEMOGLOBIN 27.3 pg (27.0-32.0); MEAN CORPUSCULAR HGB CONC 33.5 g/dL (32.0-36.0); MEAN CORPUSCULAR VOLUME 81.4 fL (83.0-97.0); MONOCYTES ABSOLUTE AUTO 0.72 10^3/uL (0.00-1.50); MONOCYTES PERCENT AUTO 5.9 % (0-10); NEUTROPHILS ABSOLUTE AUTO 10.42 x10^3/uL (1.80-8.00); NEUTROPHILS PERCENT AUTO 85.7 % (41-71); PLATELET COUNT,PLT 220 10^3/uL (150-400); RED BLOOD CELL COUNT 4.14 x10^6/uL (4.50-6.00); WHITE BLOOD CELL COUNT,WBC 12.2 10^3/uL (4.0-11.0)
[2023-05-15] MEDS: Sodium Chloride 1 GM Tab PO ONE (13:23)
[2023-05-15] MEDS: Levofloxacin/Dextrose 5%-Water 750 MG in Premix Bag 1 BAG IV SCH (13:24)
[2023-05-15] MEDS: Aluminum Hydroxide/Magnesium Hydroxide/Simethicone Susp 30 ML Cup PO PRN (16:00)
[2023-05-15] MEDS ORDERED: PARoxetine 20 MG Tab PO SCH (17:30)
[2023-05-15] MEDS: Sertraline 100 MG Tab PO SCH (19:22)
[2023-05-15] MEDS: Sodium Chloride 1 GM Tab PO SCH (19:23)
[2023-05-16] MEDS: Melatonin 3 MG Tab PO PRN (22:52)
[2023-05-17 07:47] LABS: BASOPHILS ABSOLUTE AUTO 0.02 10^3/uL (0.00-0.50); BASOPHILS PERCENT AUTO 0.2 % (0-1); EOSINOPHILS ABSOLUTE AUTO 0.19 10^3/uL (0.00-1.50); EOSINOPHILS PERCENT AUTO 2.1 % (0-6); HEMOGLOBIN 10.7 g/dL (14.0-18.0); IMMATURE GRAN ABSOLUTE AUTO 0.03 10^3/uL (0.00-0.49); IMMATURE GRAN PERCENT AUTO 0.3 % (0.0-4.9); LYMPHOCYTES ABSOLUTE AUTO 1.33 10^3/uL (0.60-5.00); LYMPHOCYTES PERCENT AUTO 14.5 % (24-44); MEAN CORPUSCULAR HEMOGLOBIN 27.2 pg (27.0-32.0); MEAN CORPUSCULAR HGB CONC 33.4 g/dL (32.0-36.0); MEAN CORPUSCULAR VOLUME 81.2 fL (83.0-97.0); MONOCYTES ABSOLUTE AUTO 0.78 10^3/uL (0.00-1.50); MONOCYTES PERCENT AUTO 8.5 % (0-10); NEUTROPHILS ABSOLUTE AUTO 6.83 x10^3/uL (1.80-8.00); NEUTROPHILS PERCENT AUTO 74.4 % (41-71); PLATELET COUNT,PLT 226 10^3/uL (150-400); RED BLOOD CELL COUNT 3.94 x10^6/uL (4.50-6.00); WHITE BLOOD CELL COUNT,WBC 9.2 10^3/uL (4.0-11.0)
[2023-05-17 08:27] LABS: ALBUMIN 2.9 g/dL (3.4-5.0); BILIRUBIN TOTAL 0.4 mg/dL (0.0-1.0); C-REACTIVE PROTEIN 4.68 mg/dL (<=0.50); CALCIUM 9.2 mg/dL (8.4-10.1); CREATININE 0.7 mg/dL (0.7-1.3); EST CRCL DRUG DOSING (CG) 102.75 mL/min; POTASSIUM,K 4.2 mEq/L (3.5-5.0); PROTEIN TOTAL,TP 7.1 g/dL (6.4-8.2)
[2023-05-17 11:31] VITALS: BP 137/77; PULSE 74
[2023-05-17] MEDS: Levofloxacin 500 MG Tab PO SCH (12:29)
[2023-05-17] MEDS: Levofloxacin 500 MG Tab PO ONE (14:39)
== END 2023-05-17 16:22 | disposition home or self-care (01) | DRG 194 ==
LOC: SUPCPDRO 12:10 → CC.ED 12:10 → CC.MS 13:32 → UNDOADMIN 13:32 → CC.MS 13:41
PROVIDERS: ADMIT Nurse Practitioner Family; ATTEND Physician Assistant
DX: R06.02 Shortness of breath (principal); J18.9 Pneumonia, unspecified organism; R79.82 Elevated C-reactive protein (CRP); E87.1 Hypo-osmolality and hyponatremia; I48.91 Unspecified atrial fibrillation; K21.9 Gastro-esophageal reflux disease without esophagitis; N40.0 Benign prostatic hyperplasia without lower urinary tract symptoms; Z66 Do not resuscitate; M19.90 Unspecified osteoarthritis, unspecified site; E66.9 Obesity, unspecified; I50.9 Heart failure, unspecified; I11.0 Hypertensive heart disease with heart failure; F32.9 Major depressive disorder, single episode, unspecified; F41.9 Anxiety disorder, unspecified; Z96.659 Presence of unspecified artificial knee joint; F17.210 Nicotine dependence, cigarettes, uncomplicated; R10.13 Epigastric pain; Z88.1 Allergy status to other antibiotic agents; Z88.0 Allergy status to penicillin; Z79.01 Long term (current) use of anticoagulants; Z79.02 Long term (current) use of antithrombotics/antiplatelets; Z79.899 Other long term (current) drug therapy; Z79.84 Long term (current) use of oral hypoglycemic drugs; Z95.0 Presence of cardiac pacemaker; Z68.30 Body mass index [BMI] 30.0-30.9, adult; Z11.52 Encounter for screening for COVID-19
CPT/HCPCS: 36415; 71045; 80053; 80305-QW; 81001; 83605; 83735; 83880; 84484; 85025; 86140; 87040; 87070; 87205; 87804; 93005; 93010; 94640; 97161-GP; 99223; 99232; 99233; 99239; 99285; A9270-GY; J1940; J1956; J7512; J7620-GY; U0002

== ENCOUNTER 2023-09-24 13:45 | Emergency (ER) | payer MEDICARE, OTHER ==
[2023-09-24 14:09] VITALS: BP 143/83; PULSE 73
[2023-09-24 14:22] LABS: BASOPHILS ABSOLUTE AUTO 0.03 10^3/uL (0.00-0.50); BASOPHILS PERCENT AUTO 0.5 % (0-1); EOSINOPHILS ABSOLUTE AUTO 0.18 10^3/uL (0.00-1.50); EOSINOPHILS PERCENT AUTO 2.8 % (0-6); HEMATOCRIT 35.5 % (42.0-52.0); HEMOGLOBIN 11.6 g/dL (14.0-18.0); IMMATURE GRAN ABSOLUTE AUTO 0.02 10^3/uL (0.00-0.49); IMMATURE GRAN PERCENT AUTO 0.3 % (0.0-4.9); LYMPHOCYTES ABSOLUTE AUTO 0.71 10^3/uL (0.60-5.00); LYMPHOCYTES PERCENT AUTO 10.9 % (24-44); MEAN CORPUSCULAR HEMOGLOBIN 25.6 pg (27.0-32.0); MEAN CORPUSCULAR HGB CONC 32.7 g/dL (32.0-36.0); MEAN CORPUSCULAR VOLUME 78.2 fL (83.0-97.0); MONOCYTES ABSOLUTE AUTO 0.74 10^3/uL (0.00-1.50); MONOCYTES PERCENT AUTO 11.4 % (0-10); NEUTROPHILS ABSOLUTE AUTO 4.82 x10^3/uL (1.80-8.00); NEUTROPHILS PERCENT AUTO 74.1 % (41-71); PLATELET COUNT,PLT 240 10^3/uL (150-400); RED BLOOD CELL COUNT 4.54 x10^6/uL (4.50-6.00); WHITE BLOOD CELL COUNT,WBC 6.5 10^3/uL (4.0-11.0)
[2023-09-24 14:43] LABS: ALBUMIN 3.6 g/dL (3.4-5.0); BILIRUBIN TOTAL 0.4 mg/dL (0.0-1.0); CALCIUM 9.2 mg/dL (8.4-10.1); CREATININE 0.9 mg/dL (0.7-1.3); EST CRCL DRUG DOSING (CG) 79.92 mL/min; POTASSIUM,K 4.3 mEq/L (3.5-5.0); PROTEIN TOTAL,TP 7.5 g/dL (6.4-8.2)
[2023-09-24] MEDS: traMADol 50 MG Tab PO ONE (15:35)
== END 2023-09-24 16:02 | disposition home or self-care (01) ==
LOC: SUPCPDRO 13:45 → CC.ED 13:45
DX: R55 Syncope and collapse (principal); I10 Essential (primary) hypertension; K21.9 Gastro-esophageal reflux disease without esophagitis; E66.9 Obesity, unspecified; Z68.28 Body mass index [BMI] 28.0-28.9, adult; Z88.0 Allergy status to penicillin; Z88.1 Allergy status to other antibiotic agents; Z88.8 Allergy status to other drugs, medicaments and biological substances; Z79.899 Other long term (current) drug therapy; Z87.891 Personal history of nicotine dependence
CPT/HCPCS: 36415; 80053; 84484; 85025; 93005; 99284; A9270

== ENCOUNTER 2023-10-26 18:33 | Emergency (ER) | payer MEDICARE, OTHER ==
[2023-10-26 18:54] LABS: BASOPHILS ABSOLUTE AUTO 0.03 10^3/uL (0.00-0.50); BASOPHILS PERCENT AUTO 0.5 % (0-1); EOSINOPHILS ABSOLUTE AUTO 0.28 10^3/uL (0.00-1.50); EOSINOPHILS PERCENT AUTO 4.2 % (0-6); HEMATOCRIT 31.8 % (42.0-52.0); HEMOGLOBIN 10.8 g/dL (14.0-18.0); IMMATURE GRAN ABSOLUTE AUTO 0.02 10^3/uL (0.00-0.49); IMMATURE GRAN PERCENT AUTO 0.3 % (0.0-4.9); LYMPHOCYTES ABSOLUTE AUTO 0.93 10^3/uL (0.60-5.00); MEAN CORPUSCULAR HEMOGLOBIN 25.8 pg (27.0-32.0); MEAN CORPUSCULAR VOLUME 75.9 fL (83.0-97.0); MONOCYTES ABSOLUTE AUTO 0.73 10^3/uL (0.00-1.50); NEUTROPHILS ABSOLUTE AUTO 4.65 x10^3/uL (1.80-8.00); PLATELET COUNT,PLT 189 10^3/uL (150-400); RED BLOOD CELL COUNT 4.19 x10^6/uL (4.50-6.00); WHITE BLOOD CELL COUNT,WBC 6.6 10^3/uL (4.0-11.0)
[2023-10-26 19:06] LABS: INR 1.11 (0.92-1.18); PROTHROMBIN TIME 11.5 SEC (9.3-11.3); PTT,PARTIAL THROMBOPLSTIN TIME 28.3 SEC (20.0-30.0)
[2023-10-26 19:07] LABS: ALANINE AMINOTRANSFERASE,ALT 13 U/L (12-78); ALBUMIN 3.2 g/dL (3.4-5.0); ALKALINE PHOSPHATASE 159 U/L (46-116); ASPARTATE AMNIOTRANSFERASE,AST 16 U/L (15-37); BILIRUBIN TOTAL 0.4 mg/dL (0.0-1.0); BLOOD UREA NITROGEN,BUN 9 mg/dL (7-18); CALCIUM 8.7 mg/dL (8.4-10.1); CARBON DIOXIDE,CO2 24 mmol/L (21-32); CHLORIDE,CL 90 mEq/L (98-106); CREATININE 0.9 mg/dL (0.7-1.3); GLUCOSE RANDOM 115 mg/dL (75-99); POTASSIUM,K 4.4 mEq/L (3.5-5.0); PROTEIN TOTAL,TP 6.8 g/dL (6.4-8.2)
[2023-10-26 19:12] LABS: ESTIMATED GFR 88 mL/min (>=60); SODIUM,NA 123 mEq/L (136-145)
[2023-10-26] MEDS: Lidocaine 1% 5 ML VIAL INJECT ONE (19:49)
[2023-10-26 19:50] LABS: AMPHETAMINES,URINE NEGATIVE (NEGATIVE); BARBITURATES,URINE NEGATIVE (NEGATIVE); BENZODIAZEPINE,URINE POSITIVE (NEGATIVE); MDMA (ECSTASY), URINE NEGATIVE (NEGATIVE); METHADONE,URINE NEGATIVE (NEGATIVE); METHAMPHETAMINES,URINE NEGATIVE (NEGATIVE); OPIATES,URINE NEGATIVE (NEGATIVE); OXYCODONE,URINE NEGATIVE (NEGATIVE); PHENCYCLIDINE,URINE NEGATIVE (NEGATIVE); TCA,URINE NEGATIVE (NEGATIVE)
[2023-10-26] MEDS ORDERED: Naloxone 2 MG/2 ML Syringe IVPUSH PRN (20:07)
[2023-10-26] MEDS: Tranexamic Acid 2,000 MG in Sodium Chloride 0.9% 100 ML IV SCH (20:07)
[2023-10-26] MEDS: HYDROmorphone 0.5 MG/0.5 ML Syringe IVPUSH ONE (20:33)
[2023-10-26] MEDS: levETIRAcetam in NaCl (iso-os) 1,000 MG in Premix Bag 1 BAG IV ONE (20:57)
[2023-10-26] MEDS: Factor IX Complex Human 500 UNIT VIAL IV ONE (21:19)
[2023-10-26] MEDS: Sodium Chloride 0.9% 100 ML ONE (21:21)
[2023-10-26] MEDS: Desmopressin 20 MCG in Sodium Chloride 0.9% 100 ML IV ONE (21:22)
[2023-10-26] MEDS: Tranexamic Acid 2,000 MG in Sodium Chloride 0.9% 100 ML IV ONE (21:22)
[2023-10-26] MEDS: Factor IX Complex Human 500 UNIT ONE (21:23)
[2023-10-26] MEDS: Sodium Chloride 0.9% 1,000 ML IV ONE (21:25)
== END 2023-10-26 21:42 ==
LOC: CC.ED 18:33
DX: S06.5X9A Traumatic subdural hemorrhage with loss of consciousness of unspecified duration, initial encounter (principal); I10 Essential (primary) hypertension; E66.9 Obesity, unspecified; F17.210 Nicotine dependence, cigarettes, uncomplicated; Z79.899 Other long term (current) drug therapy; K21.9 Gastro-esophageal reflux disease without esophagitis; Z88.0 Allergy status to penicillin; Z88.1 Allergy status to other antibiotic agents; Z88.8 Allergy status to other drugs, medicaments and biological substances; Z68.29 Body mass index [BMI] 29.0-29.9, adult; W19.XXXA Unspecified fall, initial encounter
CPT/HCPCS: 12002; 36415; 70450; 71045; 72125; 72170; 80053; 80305-QW; 83605; 85025; 85610; 85730; 93005; 96365; 96368; 96375; 99284; 99285-25; J1170; J1953; J2597; J3490; J7030; J7168

== ENCOUNTER 2023-12-09 20:32 | Emergency (ER) | payer MEDICARE ==
[2023-12-09 21:13] VITALS: BP 142/73; PULSE 70
[2023-12-09] MEDS: Acetaminophen 325 MG Tab PO ONE (21:15)
[2023-12-09] MEDS ORDERED: carBAMazepine 100 MG Cap.ER PO ONE (21:20)
[2023-12-09] MEDS ORDERED: Gabapentin 300 MG Cap PO ONE (21:20)
[2023-12-09] MEDS ORDERED: Apixaban 5 MG Tab PO ONE (21:20)
[2023-12-09] MEDS ORDERED: Acetaminophen 325 MG Tab PO ONE (21:20)
[2023-12-09] MEDS ORDERED: Tamsulosin 0.4 MG Cap.ER PO ONE (21:20)
[2023-12-09] MEDS ORDERED: busPIRone 5 MG Tab PO ONE (21:20)
[2023-12-09] MEDS ORDERED: amLODIPine 10 MG Tab PO STA (21:20)
[2023-12-09] MEDS ORDERED: Sodium Chloride 1 GM Tab PO ONE (21:20)
[2023-12-09] MEDS ORDERED: Sertraline 100 MG Tab PO SCH (21:30)
[2023-12-09] MEDS ORDERED: Losartan 25 MG Tab PO SCH (21:30)
[2023-12-09] MEDS ORDERED: Pantoprazole 40 MG Tab.CR PO ONE (21:55)
[2023-12-09] MEDS ORDERED: Losartan 25 MG Tab PO STA (21:55)
[2023-12-09] MEDS ORDERED: Sertraline 100 MG Tab PO STA (21:56)
[2023-12-10] MEDS ORDERED: Pantoprazole 40 MG Tab.CR PO SCH (07:00)
== END 2023-12-09 22:30 | disposition home or self-care (01) ==
LOC: CC.ED 20:32
DX: R51.9 Headache, unspecified (principal); I10 Essential (primary) hypertension; I48.91 Unspecified atrial fibrillation; E66.9 Obesity, unspecified; Z76.0 Encounter for issue of repeat prescription; Z87.891 Personal history of nicotine dependence; Z95.0 Presence of cardiac pacemaker; Z79.01 Long term (current) use of anticoagulants; Z79.899 Other long term (current) drug therapy; Z88.0 Allergy status to penicillin; Z88.1 Allergy status to other antibiotic agents
CPT/HCPCS: 99284; A9270

== ENCOUNTER 2023-12-20 11:19 | Observation (INO) | payer MEDICARE, OTHER ==
[2023-12-20 11:35] LABS: BASOPHILS ABSOLUTE AUTO 0.03 10^3/uL (0.00-0.50); BASOPHILS PERCENT AUTO 0.5 % (0-1); EOSINOPHILS ABSOLUTE AUTO 0.28 10^3/uL (0.00-1.50); EOSINOPHILS PERCENT AUTO 4.2 % (0-6); HEMATOCRIT 25.6 % (42.0-52.0); HEMOGLOBIN 8.1 g/dL (14.0-18.0); IMMATURE GRAN ABSOLUTE AUTO 0.02 10^3/uL (0.00-0.49); IMMATURE GRAN PERCENT AUTO 0.3 % (0.0-4.9); LYMPHOCYTES ABSOLUTE AUTO 0.54 10^3/uL (0.60-5.00); LYMPHOCYTES PERCENT AUTO 8.1 % (24-44); MEAN CORPUSCULAR HEMOGLOBIN 25.6 pg (27.0-32.0); MEAN CORPUSCULAR HGB CONC 31.6 g/dL (32.0-36.0); MEAN CORPUSCULAR VOLUME 80.8 fL (83.0-97.0); MONOCYTES ABSOLUTE AUTO 0.52 10^3/uL (0.00-1.50); MONOCYTES PERCENT AUTO 7.8 % (0-10); NEUTROPHILS ABSOLUTE AUTO 5.24 x10^3/uL (1.80-8.00); NEUTROPHILS PERCENT AUTO 79.1 % (41-71); PLATELET COUNT,PLT 228 10^3/uL (150-400); RED BLOOD CELL COUNT 3.17 x10^6/uL (4.50-6.00); WHITE BLOOD CELL COUNT,WBC 6.6 10^3/uL (4.0-11.0)
[2023-12-20] MEDS ORDERED: Docusate Sodium 100 MG Cap PO PRN (11:43)
[2023-12-20] MEDS ORDERED: Ondansetron 4 MG/2 ML SDV IV PRN (11:43)
[2023-12-20] MEDS ORDERED: Ondansetron 4 MG Tab.DIS PO PRN (11:43)
[2023-12-20] MEDS ORDERED: Polyethylene Glycol 3350 Powder 17 GM Packet PO PRN (11:43)
[2023-12-20 11:55] LABS: ALANINE AMINOTRANSFERASE,ALT 9 U/L (12-78); ALBUMIN 3.2 g/dL (3.4-5.0); ALKALINE PHOSPHATASE 125 U/L (46-116); ASPARTATE AMNIOTRANSFERASE,AST 13 U/L (15-37); BILIRUBIN TOTAL 0.2 mg/dL (0.0-1.0); BLOOD UREA NITROGEN,BUN 7 mg/dL (7-18); CALCIUM 8.8 mg/dL (8.4-10.1); CARBON DIOXIDE,CO2 25 mmol/L (21-32); CHLORIDE,CL 94 mEq/L (98-106); CREATININE 0.8 mg/dL (0.7-1.3); GLUCOSE RANDOM 130 mg/dL (75-99); MAGNESIUM 1.6 mg/dL (1.8-2.4); POTASSIUM,K 4.2 mEq/L (3.5-5.0); PRO B-TYPE NATRIUR PEPT,BNPPRO 1565 pg/mL (0-1000); PROTEIN TOTAL,TP 6.7 g/dL (6.4-8.2); SODIUM,NA 128 mEq/L (136-145)
[2023-12-20 11:58] LABS: ESTIMATED GFR 91 mL/min (>=60)
[2023-12-20 13:49] LABS: APPEARANCE,URINE SLIGHTLY CLOUDY (CLEAR); BILIRUBIN,URINE NEGATIVE (NEGATIVE); COLOR,URINE YELLOW (YELLOW); GLUCOSE,URINE NEGATIVE (NEGATIVE); KETONES,URINE NEGATIVE (NEGATIVE); LEUKOCYTE ESTERASE,URINE SMALL (NEGATIVE); NITRITE,URINE NEGATIVE (NEGATIVE); OCCULT BLOOD,URINE TRACE-INTACT (NEGATIVE); PH,URINE 6.5 (4.5-8.0); PROTEIN,URINE 30 mg/dL (NEGATIVE); UROBILINOGEN,URINE 0.2 EU/dL (0.2-1.0)
[2023-12-20 14:01] LABS: BACTERIA,URINE RARE /HPF (NOT SEEN); EPITHELIAL CELLS,URINE NOT SEEN /HPF (NOT SEEN); MUCUS,URINE OCCASIONAL /HPF (NOT SEEN); RBC,URINE NOT SEEN /HPF (0-5)
[2023-12-20] MEDS: Magnesium Sulfate/Water 2 GM in Premix Bag 1 BAG IV ONE (14:16)
[2023-12-20] MEDS: Furosemide 40 MG/4 ML VIAL IVPUSH ONE (14:16)
[2023-12-20] MEDS ORDERED: Sennosides/Docusate Sodium 50-8.6 MG Tab PO PRN (15:06)
[2023-12-20] MEDS: Gabapentin 100 MG Cap PO ONE (15:40)
[2023-12-20] MEDS: Gabapentin 100 MG Cap PO SCH ×2 (15:41→19:42)
[2023-12-20] MEDS: carBAMazepine 100 MG Cap.ER PO SCH (19:41)
[2023-12-20] MEDS: Sertraline 100 MG Tab PO SCH (19:41)
[2023-12-20] MEDS: Melatonin 3 MG Tab PO SCH (19:42)
[2023-12-20] MEDS: busPIRone 5 MG Tab PO SCH (19:42)
[2023-12-20] MEDS: Ferrous Sulfate 324 MG Tab.EC PO SCH (19:42)
[2023-12-20] MEDS: Magnesium Chloride 64 MG Tab.ER PO SCH (19:42)
[2023-12-20] MEDS: Tamsulosin 0.4 MG Cap.ER PO SCH (19:42)
[2023-12-20] MEDS: Apixaban 5 MG Tab PO SCH (19:42)
[2023-12-20] MEDS: Acetaminophen 325 MG Tab PO PRN (19:43)
[2023-12-20] MEDS ORDERED: CARBAMAZEPINE 200 MG PO SCH (20:00)
[2023-12-21] MEDS: Pantoprazole 40 MG Tab.CR PO SCH (06:06)
[2023-12-21 07:40] LABS: BASOPHILS ABSOLUTE AUTO 0.02 10^3/uL (0.00-0.50); BASOPHILS PERCENT AUTO 0.2 % (0-1); EOSINOPHILS ABSOLUTE AUTO 0.38 10^3/uL (0.00-1.50); EOSINOPHILS PERCENT AUTO 3.9 % (0-6); HEMATOCRIT 27.9 % (42.0-52.0); HEMOGLOBIN 8.8 g/dL (14.0-18.0); IMMATURE GRAN ABSOLUTE AUTO 0.02 10^3/uL (0.00-0.49); IMMATURE GRAN PERCENT AUTO 0.2 % (0.0-4.9); LYMPHOCYTES ABSOLUTE AUTO 0.57 10^3/uL (0.60-5.00); LYMPHOCYTES PERCENT AUTO 5.8 % (24-44); MEAN CORPUSCULAR HEMOGLOBIN 25.6 pg (27.0-32.0); MEAN CORPUSCULAR HGB CONC 31.5 g/dL (32.0-36.0); MEAN CORPUSCULAR VOLUME 81.1 fL (83.0-97.0); MONOCYTES PERCENT AUTO 9.2 % (0-10); NEUTROPHILS ABSOLUTE AUTO 7.91 x10^3/uL (1.80-8.00); NEUTROPHILS PERCENT AUTO 80.7 % (41-71); PLATELET COUNT,PLT 261 10^3/uL (150-400); RED BLOOD CELL COUNT 3.44 x10^6/uL (4.50-6.00); WHITE BLOOD CELL COUNT,WBC 9.8 10^3/uL (4.0-11.0)
[2023-12-21] MEDS: Furosemide 40 MG/4 ML VIAL IVPUSH SCH (07:47)
[2023-12-21] MEDS: amLODIPine 10 MG Tab PO SCH (07:49)
[2023-12-21] MEDS: Saxagliptin 2.5 MG Tab PO SCH (07:49)
[2023-12-21] MEDS: Losartan 100 MG Tab PO SCH (07:50)
[2023-12-21 07:51] VITALS: BP 143/78
[2023-12-21 08:14] LABS: CALCIUM 9.1 mg/dL (8.4-10.1); CREATININE 0.7 mg/dL (0.7-1.3); EST CRCL DRUG DOSING (CG) 99.88 mL/min; MAGNESIUM 1.9 mg/dL (1.8-2.4); POTASSIUM,K 3.9 mEq/L (3.5-5.0)
[2023-12-21 21:00] VITALS: PULSE 69
== END 2023-12-21 12:50 | disposition home or self-care (01) ==
LOC: UNDOADMOB 11:19 → CC.MS 11:19
PROVIDERS: ADMIT Nurse Practitioner; ATTEND Nurse Practitioner
DX: I11.0 Hypertensive heart disease with heart failure (principal); I50.9 Heart failure, unspecified; E87.1 Hypo-osmolality and hyponatremia; I48.91 Unspecified atrial fibrillation; K21.9 Gastro-esophageal reflux disease without esophagitis; E66.9 Obesity, unspecified; Z79.01 Long term (current) use of anticoagulants; Z79.899 Other long term (current) drug therapy; Z88.8 Allergy status to other drugs, medicaments and biological substances; Z88.1 Allergy status to other antibiotic agents; Z88.0 Allergy status to penicillin; Z68.28 Body mass index [BMI] 28.0-28.9, adult
CPT/HCPCS: 36415; 80048; 80053; 81001; 83735; 83880; 84484; 85025; 93005; 93010; 96365; 96366; 96375; 96376; 99223; 99238; A9270-GY; G0378; J1940; J3475

== ENCOUNTER 2023-12-28 13:17 | Emergency (ER) | payer MEDICARE ==
[2023-12-28 13:23] VITALS: BP 129/70; PULSE 70
[2023-12-28 13:51] LABS: BASOPHILS ABSOLUTE AUTO 0.05 10^3/uL (0.00-0.50); BASOPHILS PERCENT AUTO 0.9 % (0-1); EOSINOPHILS ABSOLUTE AUTO 0.29 10^3/uL (0.00-1.50); EOSINOPHILS PERCENT AUTO 4.9 % (0-6); HEMOGLOBIN 8.9 g/dL (14.0-18.0); IMMATURE GRAN ABSOLUTE AUTO 0.03 10^3/uL (0.00-0.49); IMMATURE GRAN PERCENT AUTO 0.5 % (0.0-4.9); LYMPHOCYTES ABSOLUTE AUTO 0.81 10^3/uL (0.60-5.00); LYMPHOCYTES PERCENT AUTO 13.8 % (24-44); MEAN CORPUSCULAR HEMOGLOBIN 25.9 pg (27.0-32.0); MEAN CORPUSCULAR HGB CONC 31.8 g/dL (32.0-36.0); MEAN CORPUSCULAR VOLUME 81.4 fL (83.0-97.0); MONOCYTES ABSOLUTE AUTO 0.57 10^3/uL (0.00-1.50); MONOCYTES PERCENT AUTO 9.7 % (0-10); NEUTROPHILS ABSOLUTE AUTO 4.13 x10^3/uL (1.80-8.00); NEUTROPHILS PERCENT AUTO 70.2 % (41-71); PLATELET COUNT,PLT 227 10^3/uL (150-400); RED BLOOD CELL COUNT 3.44 x10^6/uL (4.50-6.00); WHITE BLOOD CELL COUNT,WBC 5.9 10^3/uL (4.0-11.0)
[2023-12-28 14:04] LABS: ALBUMIN 3.3 g/dL (3.4-5.0); BILIRUBIN TOTAL 0.3 mg/dL (0.0-1.0); C-REACTIVE PROTEIN 1.45 mg/dL (<=0.50); CALCIUM 9.1 mg/dL (8.4-10.1); CREATININE 0.7 mg/dL (0.7-1.3); EST CRCL DRUG DOSING (CG) 94.13 mL/min; POTASSIUM,K 4.1 mEq/L (3.5-5.0); PROTEIN TOTAL,TP 7.1 g/dL (6.4-8.2)
== END 2023-12-28 14:54 | disposition home or self-care (01) ==
LOC: CC.ED 13:17
DX: R53.81 Other malaise (principal); I48.91 Unspecified atrial fibrillation; E66.9 Obesity, unspecified; K21.9 Gastro-esophageal reflux disease without esophagitis; F17.210 Nicotine dependence, cigarettes, uncomplicated; Z79.01 Long term (current) use of anticoagulants; Z79.899 Other long term (current) drug therapy; Z88.0 Allergy status to penicillin; Z88.1 Allergy status to other antibiotic agents; Z68.30 Body mass index [BMI] 30.0-30.9, adult
CPT/HCPCS: 36415; 80053; 85025; 86140; 99285

== ENCOUNTER 2024-01-08 14:13 | Observation (INO) | payer MEDICARE ==
[2024-01-08] MEDS ORDERED: Sodium Chloride 0.9% 10 ML Syringe FLUSH PRN (14:34)
[2024-01-08] MEDS ORDERED: Nitroglycerin 0.4 MG Tab.SL SL PRN (15:52)
[2024-01-08] MEDS ORDERED: Sennosides 8.6 MG Tab PO PRN (15:52)
[2024-01-08 16:03] LABS: BASOPHILS ABSOLUTE AUTO 0.03 10^3/uL (0.00-0.50); BASOPHILS PERCENT AUTO 0.3 % (0-1); EOSINOPHILS ABSOLUTE AUTO 0.27 10^3/uL (0.00-1.50); EOSINOPHILS PERCENT AUTO 3.1 % (0-6); HEMATOCRIT 30.3 % (42.0-52.0); HEMOGLOBIN 9.7 g/dL (14.0-18.0); IMMATURE GRAN ABSOLUTE AUTO 0.02 10^3/uL (0.00-0.49); IMMATURE GRAN PERCENT AUTO 0.2 % (0.0-4.9); LYMPHOCYTES ABSOLUTE AUTO 0.86 10^3/uL (0.60-5.00); LYMPHOCYTES PERCENT AUTO 9.8 % (24-44); MEAN CORPUSCULAR HEMOGLOBIN 25.5 pg (27.0-32.0); MEAN CORPUSCULAR VOLUME 79.5 fL (83.0-97.0); MONOCYTES ABSOLUTE AUTO 0.78 10^3/uL (0.00-1.50); MONOCYTES PERCENT AUTO 8.9 % (0-10); NEUTROPHILS ABSOLUTE AUTO 6.81 x10^3/uL (1.80-8.00); NEUTROPHILS PERCENT AUTO 77.7 % (41-71); PLATELET COUNT,PLT 260 10^3/uL (150-400); RED BLOOD CELL COUNT 3.81 x10^6/uL (4.50-6.00); WHITE BLOOD CELL COUNT,WBC 8.8 10^3/uL (4.0-11.0)
[2024-01-08 16:07] LABS: ALBUMIN 3.8 g/dL (3.4-5.0); BILIRUBIN TOTAL 0.4 mg/dL (0.0-1.0); C-REACTIVE PROTEIN 2.4 mg/dL (<=0.50); CALCIUM 9.7 mg/dL (8.4-10.1); CREATININE 0.8 mg/dL (0.7-1.3); EST CRCL DRUG DOSING (CG) 87.39 mL/min; POTASSIUM,K 4.3 mEq/L (3.5-5.0); PROTEIN TOTAL,TP 7.5 g/dL (6.4-8.2)
[2024-01-08] MEDS: busPIRone 5 MG Tab PO SCH (19:23)
[2024-01-08] MEDS: Ferrous Sulfate 324 MG Tab.EC PO SCH (19:24)
[2024-01-08] MEDS: Apixaban 5 MG Tab PO SCH (19:24)
[2024-01-08] MEDS: Tamsulosin 0.4 MG Cap.ER PO SCH (19:24)
[2024-01-08] MEDS: Magnesium Chloride 64 MG Tab.ER PO SCH (19:25)
[2024-01-08] MEDS: Melatonin 3 MG Tab PO SCH (19:26)
[2024-01-08] MEDS: Gabapentin 300 MG Cap PO SCH (19:26)
[2024-01-08] MEDS: Sertraline 100 MG Tab PO SCH (19:27)
[2024-01-08] MEDS: carBAMazepine 100 MG Cap.ER PO SCH (19:27)
[2024-01-08] MEDS: Acetaminophen 325 MG Tab PO PRN (19:29)
[2024-01-08] MEDS: ALPRAZolam 0.25 MG Tab PO PRN (23:21)
[2024-01-09] MEDS: Pantoprazole 40 MG Tab.CR PO SCH (06:17)
[2024-01-09] MEDS: Losartan 100 MG Tab PO SCH (07:48)
[2024-01-09] MEDS: Saxagliptin 2.5 MG Tab PO SCH (07:49)
[2024-01-09] MEDS: Furosemide 40 MG Tab PO SCH (07:50)
[2024-01-09] MEDS: amLODIPine 10 MG Tab PO SCH (07:50)
[2024-01-09 08:21] VITALS: BP 158/80; PULSE 72
== END 2024-01-09 10:28 | disposition home or self-care (01) ==
LOC: INTOOBSV 14:13 → CC.MS 14:13 → UNDOADMOB 14:13 → CC.MS 14:34
PROVIDERS: ADMIT Physician Assistant Medical; ATTEND Physician Assistant Medical
DX: R53.1 Weakness (principal); I10 Essential (primary) hypertension; I48.91 Unspecified atrial fibrillation; K21.9 Gastro-esophageal reflux disease without esophagitis; N40.0 Benign prostatic hyperplasia without lower urinary tract symptoms; F32.A Depression, unspecified; F17.210 Nicotine dependence, cigarettes, uncomplicated; Z79.01 Long term (current) use of anticoagulants; Z79.899 Other long term (current) drug therapy
CPT/HCPCS: 36415; 71111; 80053; 85025; 86140; A9270-GY; G0378

== ENCOUNTER 2024-01-12 12:15 | Emergency (ER) | payer MEDICARE ==
[2024-01-12 12:46] LABS: APPEARANCE,URINE CLEAR (CLEAR); BASOPHILS ABSOLUTE AUTO 0.03 10^3/uL (0.00-0.50); BASOPHILS PERCENT AUTO 0.3 % (0-1); BILIRUBIN,URINE NEGATIVE (NEGATIVE); COLOR,URINE YELLOW (YELLOW); EOSINOPHILS ABSOLUTE AUTO 0.22 10^3/uL (0.00-1.50); EOSINOPHILS PERCENT AUTO 2.1 % (0-6); GLUCOSE,URINE NEGATIVE (NEGATIVE); HEMATOCRIT 29.2 % (42.0-52.0); HEMOGLOBIN 9.3 g/dL (14.0-18.0); IMMATURE GRAN ABSOLUTE AUTO 0.05 10^3/uL (0.00-0.49); IMMATURE GRAN PERCENT AUTO 0.5 % (0.0-4.9); KETONES,URINE NEGATIVE (NEGATIVE); LEUKOCYTE ESTERASE,URINE TRACE (NEGATIVE); LYMPHOCYTES ABSOLUTE AUTO 0.76 10^3/uL (0.60-5.00); LYMPHOCYTES PERCENT AUTO 7.3 % (24-44); MEAN CORPUSCULAR HEMOGLOBIN 25.8 pg (27.0-32.0); MEAN CORPUSCULAR HGB CONC 31.8 g/dL (32.0-36.0); MEAN CORPUSCULAR VOLUME 80.9 fL (83.0-97.0); MONOCYTES ABSOLUTE AUTO 0.65 10^3/uL (0.00-1.50); MONOCYTES PERCENT AUTO 6.2 % (0-10); NEUTROPHILS ABSOLUTE AUTO 8.77 x10^3/uL (1.80-8.00); NEUTROPHILS PERCENT AUTO 83.6 % (41-71); NITRITE,URINE NEGATIVE (NEGATIVE); OCCULT BLOOD,URINE NEGATIVE (NEGATIVE); PLATELET COUNT,PLT 251 10^3/uL (150-400); PROTEIN,URINE NEGATIVE (NEGATIVE); RED BLOOD CELL COUNT 3.61 x10^6/uL (4.50-6.00); UROBILINOGEN,URINE 0.2 EU/dL (0.2-1.0); WHITE BLOOD CELL COUNT,WBC 10.5 10^3/uL (4.0-11.0)
[2024-01-12 12:51] LABS: BACTERIA,URINE NOT SEEN /HPF (NOT SEEN); EPITHELIAL CELLS,URINE RARE /HPF (NOT SEEN); RBC,URINE NOT SEEN /HPF (0-5); WBC,URINE 0-5 /HPF (0-5)
[2024-01-12 12:52] LABS: MUCUS,URINE NOT SEEN /HPF (NOT SEEN)
[2024-01-12 12:55] LABS: ALANINE AMINOTRANSFERASE,ALT 12 U/L (12-78); ALBUMIN 3.6 g/dL (3.4-5.0); ALKALINE PHOSPHATASE 149 U/L (46-116); ASPARTATE AMNIOTRANSFERASE,AST 16 U/L (15-37); BILIRUBIN TOTAL 0.4 mg/dL (0.0-1.0); BLOOD UREA NITROGEN,BUN 13 mg/dL (7-18); CALCIUM 9.2 mg/dL (8.4-10.1); CARBON DIOXIDE,CO2 29 mmol/L (21-32); CHLORIDE,CL 94 mEq/L (98-106); CREATININE 0.8 mg/dL (0.7-1.3); GLUCOSE RANDOM 128 mg/dL (75-99); LIPASE 32 U/L (16-77); POTASSIUM,K 3.4 mEq/L (3.5-5.0); PROTEIN TOTAL,TP 7.7 g/dL (6.4-8.2); SODIUM,NA 132 mEq/L (136-145)
[2024-01-12 12:56] LABS: ESTIMATED GFR 91 mL/min (>=60)
[2024-01-12 13:21] LABS: INR 1.11 (0.92-1.18); PROTHROMBIN TIME 11.5 SEC (9.3-11.3); PTT,PARTIAL THROMBOPLSTIN TIME 29.9 SEC (20.0-30.0)
[2024-01-12 16:55] VITALS: BP 118/70; PULSE 70
== END 2024-01-12 16:40 | disposition home or self-care (01) ==
LOC: CC.ED 12:15
DX: R51.9 Headache, unspecified (principal); I48.91 Unspecified atrial fibrillation; I10 Essential (primary) hypertension; K21.9 Gastro-esophageal reflux disease without esophagitis; E66.9 Obesity, unspecified; F17.200 Nicotine dependence, unspecified, uncomplicated; Z79.01 Long term (current) use of anticoagulants; Z88.0 Allergy status to penicillin; Z88.1 Allergy status to other antibiotic agents; W18.30XA Fall on same level, unspecified, initial encounter
CPT/HCPCS: 36415; 70450; 71045; 72170; 80053; 81001; 83690; 85025; 85610; 85730; 99284

== ENCOUNTER 2024-01-23 12:12 | Emergency (ER) | payer MEDICARE ==
[2024-01-23 12:29] VITALS: BP 114/66; PULSE 71
[2024-01-23 12:40] LABS: BASOPHILS ABSOLUTE AUTO 0.05 10^3/uL (0.00-0.50); BASOPHILS PERCENT AUTO 0.6 % (0-1); EOSINOPHILS PERCENT AUTO 2.4 % (0-6); HEMATOCRIT 29.9 % (42.0-52.0); HEMOGLOBIN 9.4 g/dL (14.0-18.0); IMMATURE GRAN ABSOLUTE AUTO 0.02 10^3/uL (0.00-0.49); IMMATURE GRAN PERCENT AUTO 0.2 % (0.0-4.9); LYMPHOCYTES ABSOLUTE AUTO 0.65 10^3/uL (0.60-5.00); LYMPHOCYTES PERCENT AUTO 7.7 % (24-44); MEAN CORPUSCULAR HGB CONC 31.4 g/dL (32.0-36.0); MEAN CORPUSCULAR VOLUME 79.5 fL (83.0-97.0); MONOCYTES ABSOLUTE AUTO 0.59 10^3/uL (0.00-1.50); NEUTROPHILS ABSOLUTE AUTO 6.93 x10^3/uL (1.80-8.00); NEUTROPHILS PERCENT AUTO 82.1 % (41-71); PLATELET COUNT,PLT 218 10^3/uL (150-400); RED BLOOD CELL COUNT 3.76 x10^6/uL (4.50-6.00); WHITE BLOOD CELL COUNT,WBC 8.4 10^3/uL (4.0-11.0)
[2024-01-23 12:59] LABS: ALBUMIN 3.4 g/dL (3.4-5.0); BILIRUBIN TOTAL 0.4 mg/dL (0.0-1.0); C-REACTIVE PROTEIN 3.91 mg/dL (<=0.50); CALCIUM 9.1 mg/dL (8.4-10.1); CREATININE 0.8 mg/dL (0.7-1.3); EST CRCL DRUG DOSING (CG) 84.88 mL/min; MAGNESIUM 1.7 mg/dL (1.8-2.4); POTASSIUM,K 3.8 mEq/L (3.5-5.0); PROTEIN TOTAL,TP 7.3 g/dL (6.4-8.2)
[2024-01-23 13:06] LABS: APPEARANCE,URINE CLEAR (CLEAR); BILIRUBIN,URINE NEGATIVE (NEGATIVE); COLOR,URINE YELLOW (YELLOW); GLUCOSE,URINE NEGATIVE (NEGATIVE); KETONES,URINE NEGATIVE (NEGATIVE); LEUKOCYTE ESTERASE,URINE TRACE (NEGATIVE); NITRITE,URINE NEGATIVE (NEGATIVE); OCCULT BLOOD,URINE NEGATIVE (NEGATIVE); PROTEIN,URINE NEGATIVE (NEGATIVE); UROBILINOGEN,URINE 0.2 EU/dL (0.2-1.0)
[2024-01-23 13:16] LABS: RBC,URINE 0-5 /HPF (0-5); WBC,URINE 0-5 /HPF (0-5)
== END 2024-01-23 14:20 | disposition home or self-care (01) ==
LOC: CC.ED 12:12
DX: R42 Dizziness and giddiness (principal); R53.1 Weakness; Z98.890 Other specified postprocedural states; I48.91 Unspecified atrial fibrillation; I10 Essential (primary) hypertension; K21.9 Gastro-esophageal reflux disease without esophagitis; E66.9 Obesity, unspecified; Z79.899 Other long term (current) drug therapy; Z79.01 Long term (current) use of anticoagulants; Z79.84 Long term (current) use of oral hypoglycemic drugs; Z88.1 Allergy status to other antibiotic agents; Z88.0 Allergy status to penicillin; Z88.8 Allergy status to other drugs, medicaments and biological substances; Z68.28 Body mass index [BMI] 28.0-28.9, adult
CPT/HCPCS: 36415; 70450; 71045; 80053; 81001; 83735; 84484; 85025; 86140; 93005; 93010; 99284; 99285

== ENCOUNTER 2024-06-26 13:55 | Emergency (ER) | payer MEDICARE ==
[2024-06-26 14:31] LABS: BASOPHILS ABSOLUTE AUTO 0.02 10^3/uL (0.00-0.50); BASOPHILS PERCENT AUTO 0.3 % (0-1); EOSINOPHILS ABSOLUTE AUTO 0.18 10^3/uL (0.00-1.50); EOSINOPHILS PERCENT AUTO 2.5 % (0-6); HEMATOCRIT 36.9 % (42.0-52.0); HEMOGLOBIN 11.8 g/dL (14.0-18.0); IMMATURE GRAN ABSOLUTE AUTO 0.01 10^3/uL (0.00-0.49); IMMATURE GRAN PERCENT AUTO 0.1 % (0.0-4.9); LYMPHOCYTES ABSOLUTE AUTO 0.93 10^3/uL (0.60-5.00); LYMPHOCYTES PERCENT AUTO 13.1 % (24-44); MEAN CORPUSCULAR HEMOGLOBIN 24.4 pg (27.0-32.0); MEAN CORPUSCULAR VOLUME 76.4 fL (83.0-97.0); MONOCYTES ABSOLUTE AUTO 0.49 10^3/uL (0.00-1.50); MONOCYTES PERCENT AUTO 6.9 % (0-10); NEUTROPHILS ABSOLUTE AUTO 5.45 x10^3/uL (1.80-8.00); NEUTROPHILS PERCENT AUTO 77.1 % (41-71); PLATELET COUNT,PLT 247 10^3/uL (150-400); RED BLOOD CELL COUNT 4.83 x10^6/uL (4.50-6.00); WHITE BLOOD CELL COUNT,WBC 7.1 10^3/uL (4.0-11.0)
[2024-06-26 14:56] LABS: ALANINE AMINOTRANSFERASE,ALT 14 U/L (12-78); ALBUMIN 3.9 g/dL (3.4-5.0); ALKALINE PHOSPHATASE 162 U/L (46-116); ASPARTATE AMNIOTRANSFERASE,AST 16 U/L (15-37); BILIRUBIN TOTAL 0.3 mg/dL (0.0-1.0); BLOOD UREA NITROGEN,BUN 19 mg/dL (7-18); CARBON DIOXIDE,CO2 27 mmol/L (21-32); CHLORIDE,CL 98 mEq/L (98-106); CREATININE 0.9 mg/dL (0.7-1.3); EST CRCL DRUG DOSING (CG) 76.45 mL/min; GLUCOSE RANDOM 203 mg/dL (75-99); MAGNESIUM 2.3 mg/dL (1.8-2.4); POTASSIUM,K 4.3 mEq/L (3.5-5.0); PROTEIN TOTAL,TP 8.3 g/dL (6.4-8.2); SODIUM,NA 133 mEq/L (136-145)
[2024-06-26 15:02] LABS: ACETAMINOPHEN < 2 ug/mL (10-30); ESTIMATED GFR 87 mL/min (>=60); ETHANOL BLOOD MEDICAL < 3 mg/dL (0-3)
[2024-06-26 15:28] LABS: INR 1.11 (0.92-1.18); PROTHROMBIN TIME 11.6 SEC (9.3-11.3); PTT,PARTIAL THROMBOPLSTIN TIME 26.7 SEC (20.0-30.0)
[2024-06-26 15:59] LABS: APPEARANCE,URINE CLEAR (CLEAR); BILIRUBIN,URINE NEGATIVE (NEGATIVE); COLOR,URINE YELLOW (YELLOW); GLUCOSE,URINE NEGATIVE (NEGATIVE); KETONES,URINE NEGATIVE (NEGATIVE); LEUKOCYTE ESTERASE,URINE SMALL (NEGATIVE); NITRITE,URINE NEGATIVE (NEGATIVE); OCCULT BLOOD,URINE NEGATIVE (NEGATIVE); PROTEIN,URINE 100 mg/dL (NEGATIVE); UROBILINOGEN,URINE 0.2 EU/dL (0.2-1.0)
[2024-06-26 16:00] LABS: AMPHETAMINES,URINE NEGATIVE (NEGATIVE); BARBITURATES,URINE NEGATIVE (NEGATIVE); BENZODIAZEPINE,URINE NEGATIVE (NEGATIVE); MDMA (ECSTASY), URINE NEGATIVE (NEGATIVE); METHADONE,URINE NEGATIVE (NEGATIVE); METHAMPHETAMINES,URINE NEGATIVE (NEGATIVE); OPIATES,URINE NEGATIVE (NEGATIVE); OXYCODONE,URINE NEGATIVE (NEGATIVE); PHENCYCLIDINE,URINE NEGATIVE (NEGATIVE); TCA,URINE NEGATIVE (NEGATIVE)
[2024-06-26 16:07] LABS: BACTERIA,URINE RARE /HPF (NOT SEEN); EPITHELIAL CELLS,URINE NOT SEEN /HPF (NOT SEEN); MUCUS,URINE RARE /HPF (NOT SEEN); RBC,URINE NOT SEEN /HPF (0-5); WBC,URINE 0-5 /HPF (0-5)
[2024-06-26 18:49] VITALS: BP 132/87; PULSE 73
== END 2024-06-26 21:40 ==
LOC: CC.ED 13:55
DX: F33.1 Major depressive disorder, recurrent, moderate (principal); R45.851 Suicidal ideations; I10 Essential (primary) hypertension; I48.91 Unspecified atrial fibrillation; E66.9 Obesity, unspecified; M19.90 Unspecified osteoarthritis, unspecified site; Z95.0 Presence of cardiac pacemaker; Z88.8 Allergy status to other drugs, medicaments and biological substances; Z88.0 Allergy status to penicillin; Z88.1 Allergy status to other antibiotic agents; Z79.899 Other long term (current) drug therapy; Z79.01 Long term (current) use of anticoagulants; Z79.811 Long term (current) use of aromatase inhibitors; Z68.29 Body mass index [BMI] 29.0-29.9, adult
CPT/HCPCS: 36415; 70450; 71045; 80053; 80143; 80156; 80179; 80305-QW; 80307; 81001; 83735; 84484; 85025; 85610; 85730; 93005; 99285